=== PATIENT | female | born 1945 | race Caucasian/White ===

== ENCOUNTER 2021-03-13 12:50 | Outpatient (REF) | payer MEDICARE, MEDICAID, SELFPAY ==
--- NOTE | 2021-03-13 12:58 | EEG_ITS ---
The waking background activity consists of a symmetrical posterior alpha frequency of 9 hertz, intermixed with low-voltage fast frequencies seen anteriorly. Drowsiness is characterized by attenuation of the background activity and diffuse theta. During sleep, symmetrical frontal central sleep spindles are seen over both hemispheres. Arousals are frequent. This study is somewhat limited because of an abundance of artifacts and loss of a couple of leads from the left temporal region during half the study on day 2. The patient remains asymptomatic. IMPRESSION: This is a limited 24-hour ambulatory EEG due to abundant to artifact and loss of some left temporal leads, however, the readable part of the 24-hour ambulatory EEG does not reveal any paroxysmal features. MD JULIA Powers/CALLY / [id number]
== END 2021-03-13 12:51 | disposition home or self-care (01) ==
LOC: HO.NEURO 12:50
PROVIDERS: Visit Provider Family Medicine
DX: G45.4 Transient global amnesia (principal)
CPT/HCPCS: 95708

== ENCOUNTER 2024-05-04 13:29 | Outpatient (AMB) | payer MEDICARE, SELFPAY ==
--- NOTE | 2024-05-04 14:07 | A.OFFVIS_ITS ---
Vital Signs 05/04/24 14:09 Height 5 ft 4 in Weight 188 lb BMI 32.3 Intake Visit Reasons: New Pt - Right Knee Pain Intake Note: Sylvia is a 78 year old female who presents today as a new patient with complaints of left knee pain. Patient reports that she has had pain ongoing for about 6-7 months, denies injury. She explains that her pain is tolerable, it is mostly felt with gait initiation and improves with motion. Some occasional pain at night. The joint cracks often. She will take Tylenol for her symptoms. Hx of Right TKA in 2013 [place] Allergies latex Allergy (Verified 05/04/24 14:12) Rash HPI HPI New Pt - Right Knee Pain: Details: Right knee was replaced in 2013 approximately and she is doing well. This does not bother her other than occasionally. Her primary complaint today is medial sided left knee pain. This is not severe and tolerable but does bother her. She is active and she likes to walk. She has had in injections in the right knee in the past prior to previous surgery and would like to consider an injection into her left knee today. [facility] Surgical History (Updated 05/04/24 @ 14:14 by Toya Morel [facility]) History of carpal tunnel release History of elbow replacement History of bunionectomy of right great toe History of total right knee replacement Physical Exam Vital Signs: BMI result Body Mass Index 32.3 Extrem Other: Right knee with excellent motion well-healed incision. Left knee with 5-125 degrees of motion. Tenderness to palpation medial compartment. No effusion. Minimal gait antalgia. Office Procedures Joint Inj/Aspir; Non-Pain Clin Joint Injection/Drain Details: Injected 1 mL of Decadron and 3 mL 1% lidocaine and 3 mL of 0.25% Marcaine. Site was prepped using aseptic technique. Patient tolerated the procedure well. Approach Used: anterolateral Shoulders, Hips, Knees, Knee Large Joint Injection [id number]: Left Knee Coding Procedure code (CPT) selection complete Results Reviewed Results Reviewed: I personally reviewed relevant radiographs. Right total knee arthroplasty in expected post operative position with no hardware complications or evidence of loosening Left knee with loss of medial joint space consistent with moderate to severe osteoarthritis. Assessment & Plan Assessment & Plan (1) Osteoarthritis of left knee: Code(s): M17.12 - Unilateral primary osteoarthritis, left knee Category: Medical Plan: This is a 78-year-old woman with osteoarthritis of the left knee. I injected her left knee today. If this does not help we can consider viscosupplementation. She does not want knee replacement and her symptoms are significant enough to warrant this. She can follow up as needed. Orders: Orders XR knee RT 3V 05/04/24 M25.561 - Pain in right knee XR knee LT 1V 05/04/24 M25.569 - Pain in unspecified knee Coding Level of Care Code New Pt Level 3 (73105) Diagnoses Osteoarthritis of left knee M17.12 CPT Codes Shoulders, Hips, Knees, - Knee Large Joint Injection : Left Knee ([id number])
[2024-05-04 14:09] VITALS: BMI 32.3
== END 2024-05-04 16:00 | disposition home or self-care (01) ==
PROVIDERS: PCP Internal Medicine; Visit Provider Orthopaedic Surgery
DX: M17.12 Unilateral primary osteoarthritis, left knee (principal)
CPT/HCPCS: 20610; 99203

== ENCOUNTER 2024-05-04 13:29 | Outpatient (REF) | payer MEDICARE, SELFPAY | END 2024-05-04 13:30 | disposition home or self-care (01) | LOC: HO.HOSX 13:29 | PROVIDERS: PCP Internal Medicine; Visit Provider Orthopaedic Surgery | DX: M25.561 Pain in right knee (principal); M25.562 Pain in left knee; M17.12 Unilateral primary osteoarthritis, left knee | CPT/HCPCS: 20610; 73560; 73562; 99202; J0665; J1100; J2003 ==

== ENCOUNTER 2024-09-11 14:59 | Outpatient (AMB) | payer MEDICARE, SELFPAY ==
[2024-09-11 15:13] VITALS: BMI 32.3
--- NOTE | 2024-09-11 15:13 | A.OFFVIS_ITS ---
Vital Signs 09/11/24 15:13 Height 5 ft 4 in Weight 188 lb BMI 32.3 Intake Visit Reasons: OV- Left Knee OA - last injection 05/04/24 Intake Note: Sylvia is a 79 year old female who presents today for a follow up of her left knee OA. Last injection administered to the left knee 05/04/2024. She reports that the injection was not particularly helpful, but she also admits to doing too much activity after the injection. She would like to repeat injection today with hopes that this one will help more than the last Hx of Right TKA in 2012 [place] Allergies latex Allergy (Verified 09/11/24 15:13) Rash HPI HPI OV- Left Knee OA - last injection 05/04/24: Details: Four months status post left knee injection. She continues to have pain with daily activity. Injection was only briefly helpful. [facility] Surgical History History of carpal tunnel release History of elbow replacement History of bunionectomy of right great toe History of total right knee replacement Physical Exam Vital Signs: BMI result Body Mass Index 32.3 Extrem Other: Right knee with excellent motion well-healed incision. Left knee with 5-125 degrees of motion. Tenderness to palpation medial compartment. No effusion. Minimal gait antalgia. Office Procedures Joint Inj/Aspir; Non-Pain Clin Joint Injection/Drain Details: Injected 1 mL of Decadron and 3 mL 1% lidocaine and 3 mL of 0.25% Marcaine. Site was prepped using aseptic technique. Patient tolerated the procedure well. Shoulders, Hips, Knees, Knee Large Joint Injection : Left Knee Coding Procedure code (CPT) selection complete Assessment & Plan Assessment & Plan (1) Osteoarthritis of left knee: Code(s): M17.12 - Unilateral primary osteoarthritis, left knee Category: Medical Plan: I injected her left knee. If this is not sufficiently helpful we will consider viscosupplementation. Telehealth follow up 6 weeks. Coding Level of Care Code Est Pt Level 3 (75302) Diagnoses Osteoarthritis of left knee M17.12 CPT Codes Shoulders, Hips, Knees, - Knee Large Joint Injection : Left Knee ([id number])
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
--- OUTSIDE RECORDS SUMMARY | 2024-09-11 17:48 | XMS_ITS | Patient Health Record ---
Author Organization [facility] Address [address] [facility] [address] [place] [address] Care Team Providers Care Internet Systems Administrator Name Role Phone TIFFANY PIERCE Primary Care Provider [phone] Allergies Allergen (clinical drug ingredient) Drug/Non Drug Allergy documented on EMR Reaction Allergy Type Onset Date Status Ascorbic Acid Unknown Drug Allergy Act khushboo Magnesium Unknown Drug Allergy Active Adhesive Unknown Allergy Active Latex Latex rash Allergy Active mercaptopurine Mercaptopurine Unknown Drug Allergy Active Results Component Value Reference Range Notes LIPID PANEL WITH REFLEX TO D IRECT LDL Reviewed date:08/23/2024 01:01:22 PM Interpretation: Performing Lab: Notes/Report: Cholesterol 205 0-200 mg/dL Triglycerides 92 0-150 mg/dL HDL 76 >=40 mg/dL LDL Calculated 111 0-100 mg/dL VLDL Cholesterol Byron 18.4 Non HDL Chol. (LDL+VLDL) 129 <145 mg/dL Chol/HDL Ratio 2.7 0.0-4.4 COMPREHENSIVE METABOLIC PANE L Reviewed date:08/23/2024 01:01:27 PM Interpretation: Performing Lab: Notes/Report: Sodium 138 133-145 mmol/L Potassium 3.7 3.5-5.5 mmol/L Chloride 104 96-110 mmol/L CO2 29 21-32 mmol/L Anion Gap 5 3-11 Glucose 93 70-100 mg/dL BUN 18 5-25 mg/dL Creatinine 0.82 0.50-1.10 mg/dL eGFR 74 >=60 mL/min/1.73m2 Calculati on based on the Chronic Kidney Disease Epidemiology Collaboration (CKD-EPI) equation refit without adjustment for race. BUN/Creatinine Ratio 22.0 Calcium 9.8 8.5-10.5 mg/dL AST (SGOT) 22 10-42 unit/L ALT (SGPT) 47 10-60 unit/L Alkaline Phosphatase 103 42-121 unit/L Total Protein 7.6 6.0-8.0 g/dL Albumin 4.1 3.2-5.0 g/dL Total Bilirubin 1.2 0.0-1.4 mg/dL MICROALBUMIN CREATININE URIN E RATIO Reviewed date:08/23/2024 01:01:13 PM Interpretation: Performing Lab: Notes/Report: Creatinine, Urine 72.0 Microalb, Ur 5.2 0.0-29.0 mg/L Microalb/Creat Ratio 7 <30 mg/g creat Reason For Referral No Information Medications Medication SIG (Take, Route, Frequency, Duration) [...] Problem Status W/U Status Risk Notes Problem Obesity due to excess calories (808767409) Other obesity due to excess calories (E66.09) Active confirmed Problem Essential hypertension (87782604) Essential (primary) hypertension (I10) Active confirmed Problem Atrial fibrillation (12757509) Unspecified atrial fibrillation (I48.91) Active confirmed Vital Signs Heart Rate 74 /min 06/01/2024 Temperature 96.1 degrees Fahrenheit 06/01/2024 Blood pressure diastolic 68 mm Hg 06/01/2024 Oximetry 98 % 06/01/2024 Height 5'5'' in 06/01/2024 Blood pressure systolic 110 mm Hg 06/01/2024 Weight 194.1 lbs 06/01/2024 BMI 32.3 kg/m2 06/01/2024 Encounters Encounter Location Date Provider Diagnosis [facility] [address] [facility] [address] [place] [address] 06/01/2024 TIFFANY PIERCE Essential (primary) hypertension I10 ; Unspecified atrial fibrillation I48.91 ; Other obesity due to excess calories E66.09 and Dietary counseling and surveillance Z71.3 Assessments Encounter Date Diagnosis (ICD Code) Assessment Notes Treatment Notes Treatment Clinical Notes Section Notes 06/01/2024 Essential (primary) hypertension (ICD-10 - I10) 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 Cullen. She takes amoxicillin prophylactically before dental work She is up-to-date on age-specific screening. Her sister Jessica Wallis is her healthcare proxy and her phone number is [phone] Screening blood work before next appointment. 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 Cullen. She takes amoxicillin prophylactically before dental work She is up-to-date on age-specific screening. Her sister Jessica Wallis is her healthcare proxy and her phone number is [phone] Screening blood work before next appointment. 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 Cullen. She takes amoxicillin prophylactically before dental work She is up-to-date on age-specific screening. Her sister Jessica Wallis is her healthcare proxy and her phone number is [phone] Screening blood work before next appointment. 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 Cullen. She takes amoxicillin prophylactically before dental work She is up-to-date on age-specific screening. Her sister Jessica Wallis is her healthcare proxy and her phone number is [phone] Screening blood work before next appointment. Plan Of Treatment Future Test Test Name Order Date Albumin/Creatinine Ratio,Urine-[id number] Lipid Panel-[id number] 06/01/2024 Comp. Metabolic Panel [id number] 2024 Next Appt Details Provider Name:TIFFANY PIERCE , 11/14/2024 08:00:00 AM, [address] [facility] [address], [place], [address], Insurance Providers Payer Name Payer Address Payer Phone Subscriber Number Group Number Insured Name Patient Relationship to Insured Coverage Start Date Coverage End Date Medicare [address] [place] [phone] [id number] Syliva Wallis Self - patient is the insured Medical (General) History Medical History History ICD Code hypertension atrial fibrillation and she sees [facility] and status post ablation time 2 Melanoma right leg and statu s post Mohs procedure and she goes to [facility] Remote injury to the jaw and takes Flexe ril as needed Surgical History Surgery Date(Month/Year) right total knee replacement at [facility] Wrist surgery Dr Laughlin after fall hit by a dog appendectomy
--- OUTSIDE RECORDS SUMMARY | 2024-09-11 17:48 | XMS_ITS | Clinical Summary ---
Author Organization [address] Address [address] [place] [address] Phone Care Team Providers Care Hedis Registered Nurse Rn Name Role Phone Mick Flores MD Primary Care Provider [phone] Allergies Active Allergy Reactions Criticality Noted Date Comments Latex 12/22/2021 Medications apixaban (Eliquis) 5 mg tablet Take 1 tablet (5 mg total) by mouth 2 (two) times a day. 180 tablet 2 05/25/2024 Active ascorbic acid, vitamin C, 500 mg capsule Take 1 capsule by mouth daily. Active famotidine (PEPCID) 20 mg tablet Take 1 tablet by mouth daily. Active lisinopriL (PRINIVIL,ZESTR IL) 10 mg tablet Take 1 Tablet by mouth daily. Active metoprolol succinate (TOPROL-XL) 25 mg 24 hr tablet Take 1 Tablet by mouth daily. 12/03/2023 Active CHOLECALCIFEROL , VITAMIN D3, ORAL Take by mouth daily. Active multivitamin (MULTIPLE VITAMINS ORAL) Take by mouth daily. Active acetaminophen (TYLENOL) 325 mg capsule Take 1 tablet by mouth daily. Active glucosamine sulfate 2KCl (Glucosamine Relief) 500 mg capsule Take by mouth daily. Active CALCIUM CARBONATE ORAL Take by mouth daily. Active Active Problems Problem Noted Date Diagnosed Date Closed displaced fracture of head of radius with routine healing 02/08/2023 Closed fracture of right distal radius 3 Dislocation of right elbow 02/08/2023 Essential hypertension 12/22/2021 Overview (07/12/2024): Last Assessment & Plan: Well controlled on cmy meds, continue Obstructive sleep apnea 05/27/2021 Overview (07/12/2024): Last Assessment & Plan: -compliant with CPAP Cardiomyopathy ([facility] V24, [facility] V28) 2020 Overview (07/12/2024): - See history under paroxysmal atrial fibrillation section Last Assessment & Plan: Recovery of ejection fraction with rate control. Continue low-dose lisinopril and metoprolol. Euvolemic on exam. Paroxysmal atrial fibrillation ([facility] V24, [facility] V28) 10/10/2020 Overview (07/12/2024): - Started having persistent A-fib sometime in 2016 and was noted to have A. tach cardiomyopathy with a EF of 30 to 35% - Status post PVI ablation in December 2017 for symptomatic persistent A-fib by Dr. Hoang - Post ablation, - Had breakthrough A-fib in 2018 for which she was transiently on Tikosyn and had a repeat PVI ablation by Dr. Hoang in March 2019 - Currently on Eliquis for CVA prophylaxis without clear recurrence since then and metoprolol - Most recent echocardiogram from August 2022 showed normal left ventricular ejection fraction of 55 to 60%, normal diastolic function, and no significant valvular abnormalities - Also has sleep apnea but is adherent with CPAP Last Assessment & Plan: No major recurrence. Excellent functional capacity. Continue current low-dose metoprolol and Eliquis 5 twice daily for CVA prophylaxis. Family History Medical History Relation Name Comments Other: unknown heart condition Brother Ronald Other: afib Sister 1 Jessica Other: pacemaker Sister 1 Jessica Other: pacemaker Sister 2 Ina Relation Name Status Comments Brother Ronald Sister 1 Jessica Sister 2 Ina Alive Social History Tobacco Use Types Packs/Day Years Used Date Smoking Tobacco: Never Smokeless Tobacco: Never Alcohol Use Standard Drinks/Week Comments Yes 2 (1 standard drink = 0.6 oz pur e alcohol) Comments Unknown Sex and Gender Information Value Date Recorded Sex Assigned at Not on file Legal Sex Female 7:40 AM EST Gender Identity Not on file Sexual Orientation Not on file Obstetrics History Last Filed Vital Signs Vital Sign Reading Time Taken Comments Blood Pressure 142/79 11/16/2023 10:37 AM EDT Pulse 72 11/16/2023 10:37 AM EDT Temperature - - Respiratory Rate - - Oxygen Saturation - - Inhaled Oxygen Concentration - - Weight 86.2 kg (190 lb) 02/21/2024 9:49 AM EDT Height 165.1 cm (5' 5 ) 02/21/2024 9:49 AM EDT Body Mass Index 31.62 02/21/2024 9:49 AM EDT Plan of Treatment Upcoming Encounters Date Type Department Care Team (Late st Contact Info) Description 10/18/2024 8:40 AM EDT Office Visit [facility] [address] [facility] [address] [place] [address] Jerald Augustin NP [address] [place] [address] Health Maintenance Due Date Last Done Comments DTaP,Tdap,and Td Vaccines (1 - Tdap) 08/09/1966 Pneumococcal Vaccine: 50+ Years (1 of 1 - PCV) 08/09/1997 Depression Screening 04/26/2022 Falls Risk Assessment 04/26/2022 Hepatitis C Screening 04/26/2022 Medicare Annual Wellness Visit 04/26/2022 Osteoporosis Screening (Bone Density Screening) 04/26/2022 Social Influencers of Health Screening 04/26/2022 COVID-19 Vaccine ( season) 2024 04/17/2024, 03/03/2023, 02/26/2022, Additional history exists Hypertension/CHF/CAD Annual BMP Blood Test 08/22/2025 08/22/2024 Cholesterol Screening (Lipid Panel) 08/22/2029 08/22/2024 Zoster Vaccines Completed 06/07/2018, 03/01/2018 RSV Immunization Adult Patients Completed 05/16/2023 Influenza Vaccine Completed 02/28/2024, , 03/12/2022, Additional history exists HIB Vaccines Aged Out No longer eligi ble based on patient's age to complete this topic HPV Vaccines Aged Out No longer eligi ble based on patient's age to complete this topic Hepatitis A Vaccines Aged Out No long er eligible based on patient's age to complete this topic Hepatitis B Vaccines Aged Out No long er eligible based on patient's age to complete this topic IPV Vaccines Aged Out No longer eligi ble based on patient's age to complete this topic MMR Vaccines Aged Out No longer eligi ble based on patient's age to complete this topic Meningococcal ACWY Vaccine Aged Out N o longer eligible based on patient's age to complete this topic Meningococcal B Vaccine Aged Out No l onger eligible based on patient's age to complete this topic RSV Immunization Patients Under 20 months Aged Out No longer eligible based on patient's age to complete this topic Varicella Vaccines Aged Out No longer eligible based on patient's age to complete this topic Procedures Procedure Name Priority Date/Time Associated Diagnosis Comments MICROALBUMIN CREATININE URINE RATIO Routine 08/22/2024 10:04 AM EDT Essential hypertension, benign LIPID PANEL WITH REFLEX TO DIRECT LDL Routine 08/22/2024 10:04 AM EDT Essential hypertension, benign COMPREHENSIVE METABOLIC PANEL Routine 08/22/2024 10:04 AM EDT Essential hypertension, benign from Last 3 Months Results * (ABNORMAL) Lipid panel with reflex to direct LDL (08/22/2024 10:04 AM EDT) Cholesterol 205(H) 0 - 200 mg/dL LAB CHEMISTRY METHOD 08/22/2024 12:11 PM [facility] Triglycerides 92 0 - 150 mg/dL LAB CHEMISTRY METHOD 08/22/2024 12:11 PM [facility] HDL 76 >=40 mg/dL LAB CHEMISTRY METHOD 08/22/2024 12:11 PM [facility] LDL Calculated 111(H) 0 - 100 mg/dL LAB CHEMISTRY METHOD 08/22/2024 12:11 PM [facility] VLDL Cholesterol Byron 18.4 mg/dL LAB CHEMISTRY METHOD 08/22/2024 12:11 PM [facility] Non HDL Chol. (LDL+VLDL) 129 <145 mg/dL LAB CHEMISTRY METHOD 08/22/2024 12:11 PM EDT [facility] Chol/HDL Ratio 2.7 0.0 - 4.4 LAB CHEMISTRY METHOD 08/22/2024 12:11 PM EDT [facility] Blood Venous blood specimen / Unknown Venipuncture / Unknown 08/22/2024 10:04 AM EDT 08/22/2024 11:07 AM EDT Mick Flores MD LAB BLOOD ORDERABLES Final Res ult Performing Organization Address City/[facility]/ZIP Co de Phone Number [facility] [address] [place] [address], [place] [phone] * Microalbumin creatinine urine ratio (08/22/2024 10:04 AM EDT) Creatinine, Urine 72.0 mg/dL LAB CHEMISTRY METHOD 08/22/2024 12:23 PM T [facility] Microalb, Ur 5.2 0.0 - 29.0 mg/L LAB CHEMISTRY METHOD 08/22/2024 12:23 PM T [facility] Microalb/Creat Ratio 7 <30 mg/g creat LAB CHEMISTRY METHOD 08/22/2024 12:23 PM T [facility] Urine Urine specimen obtained by clean catch procedure / Unknown Non-blood Collection / Unknown 08/22/2024 10:04 AM EDT 08/22/2024 11:08 AM EDT Mick Flores MD LAB URINE ORDERABLES Final Res ult [facility] [address] [place] [address], [place] [phone] * Comprehensive metabolic panel (08/22/2024 10:04 AM EDT) Sodium 138 133 - 145 mmol/L LAB CHEMISTRY METHOD [facility]24 [facility] Potassium 3.7 3.5 - 5.5 mmol/L LAB CHEMISTRY METHOD 08/22/2024 12:11 PM [facility] Chloride 104 96 - 110 mmol/L LAB CHEMISTRY METHOD 08/22/2024 12:11 PM [facility] CO2 29 21 - 32 mmol/L LAB CHEMISTRY METHOD 08/22/2024 12:11 PM [facility] Anion Gap 5 3 - 11 LAB CHEMISTRY METHOD 08/22/2024 12:11 PM [facility] Glucose 93 70 - 100 mg/dL LAB CHEMISTRY METHOD 08/22/2024 12:11 PM [facility] BUN 18 5 - 25 mg/dL LAB CHEMISTRY METHOD 08/22/2024 12:11 PM [facility] Creatinine 0.82 0.50 - 1.10 mg/dL LAB CHEMISTRY METHOD 08/22/2024 12:11 PM [facility] eGFR 74 >=60 mL/min/1. 73m2 LAB CHEMISTRY METHOD 08/22/2024 12:11 PM [facility] Comment:Calculation based on the??Chronic Kidney Disease Epidemiology Collaboration (CKD-EPI) equation refit??without adjustment for race. BUN/Creatinine Ratio 22.0 LAB CHEMISTRY METHOD 08/22/2024 12:11 PM [facility] Calcium 9.8 8.5 - 10.5 mg/dL LAB CHEMISTRY METHOD 08/22/2024 12:11 PM [facility] AST (SGOT) 22 10 - 42 unit/L LAB CHEMISTRY METHOD 08/22/2024 12:11 PM [facility] ALT (SGPT) 47 10 - 60 unit/L LAB CHEMISTRY METHOD 08/22/2024 12:11 PM [facility] Alkaline Phosphatase 103 42 - 121 unit/L LAB CHEMISTRY METHOD 08/22/2024 12:11 PM [facility] Total Protein 7.6 6.0 - 8.0 g/dL LAB CHEMISTRY METHOD 08/22/2024 12:11 PM EDT [facility] Albumin 4.1 3.2 - 5.0 g/dL LAB CHEMISTRY METHOD 08/22/2024 12:11 PM EDT [facility] Total Bilirubin 1.2 0.0 - 1.4 mg/dL LAB CHEMISTRY METHOD 08/22/2024 12:11 PM EDT [facility] Blood Venous blood specimen / Unknown Venipuncture / Unknown 08/22/2024 10:04 AM EDT 08/22/2024 11:07 AM EDT Mick Flores MD LAB BLOOD ORDERABLES Final Res ult [facility] [address] [place] [address], from Last 3 Months Insurance MEDICARE Care Teams Hedis Registered Nurse Rn Relationship Specialty Start Date End Date Mick Flores MD [address] [place] [address] PCP - General Internal Medicine 07/11/24
== END 2024-09-11 15:28 | disposition home or self-care (01) ==
LOC: HO.HOS 15:00
PROVIDERS: PCP Internal Medicine; Visit Provider Orthopaedic Surgery
DX: M17.12 Unilateral primary osteoarthritis, left knee (principal)
CPT/HCPCS: 20610; 99213

== ENCOUNTER → 2024-09-11 14:59 | Outpatient (BNVA) | payer MEDICARE, SELFPAY | PROVIDERS: PCP Internal Medicine; Visit Provider Orthopaedic Surgery | DX: M17.12 Unilateral primary osteoarthritis, left knee (principal) | CPT/HCPCS: 20610; 99212; J0665; J1100; J2003 ==

== ENCOUNTER 2024-10-23 14:55 | Outpatient (AMB) | payer MEDICARE, SELFPAY ==
--- NOTE | 2024-10-23 14:58 | A.OFFVIS_ITS ---
Intake Visit Reasons: TEL- Left Knee OA-Video call Intake Note: Sylvia is a 79 year old female who presents today VIA Video Call for a follow up of her Left Knee OA. Hx of right TKA. She was last seen on 09/11/24 where the left knee was injected. If not helpful we would discuss Gel. Patient has tried and failed ~30 days of Tylenol 600mg and Ibuprofen 600mg with no relief. Tried and failed home exercise program XR confirmed OA Allergies latex Allergy (Verified 09/11/24 15:13) Rash HPI HPI TEL- Left Knee OA-Video call: Details: Sylvia is a 79 year old female who presents today VIA Video Call for a follow up of her Left Knee OA. Hx of right TKA. She was last seen on 09/11/24 where the left knee was injected. If not helpful we would discuss Gel. Patient has tried and failed ~30 days of Tylenol 600mg and Ibuprofen 600mg with no relief. Tried and failed home exercise program XR confirmed OA She states she is doing well and the injection was helpful. It bothers her after a long rest but otherwise she feels that she is doing better. [facility] Surgical History History of carpal tunnel release History of elbow replacement History of bunionectomy of right great toe History of total right knee replacement Telehealth Telehealth Telehealth Platform: Telephone Location of provider rendering services: practice address Location of patient: other Patient Identification confirmed using: Name, : Yes Telehealth method: voice only Patient verbally consented to treatment: Yes Patient verbally consented to billing insurance company: Yes Assessment & Plan Assessment & Plan (1) Osteoarthritis of left knee: Code(s): M17.12 - Unilateral primary osteoarthritis, left knee Category: Medical Plan: Doing well considering. At this point in time I would recommend that we continue with corticosteroid injections as tolerated. She does not want s urgery. If the steroid injections stopping helpful we can consider viscosupplementation. We will schedule an appointment for approximately 6 weeks. Coding Level of Care Code Tele Est Pt Level 2 (31231) Diagnoses Osteoarthritis of left knee M17.12
--- OUTSIDE RECORDS SUMMARY | 2024-10-23 16:42 | XMS_ITS | Encounter Summary ---
Author Organization [facility] Address [address] [place] [address] Care Team Providers Care Hairpiece Stylist Name Role Phone Mick Flores MD Primary Care Provider [phone] Reason for Visit * Reason Onset Date Comments called pt to r/s 10/18/24 appt with Jerald Augustin 10/18/2024 Encounter Details Date Type Department Care Team ([facility] st Contact Info) Description 10/18/2024 Telephone [facility] - [facility] [address] [facility] [address] [place] [phone] Yamilet Hill MD [address] [place] [address] called pt to r/s 10/18/24 appt with Jerald Augustin Social History Tobacco Use Types Packs/Day Years Used Date Smoking Tobacco: Never Smokeless Tobacco: Never Alcohol Use Standard Drinks/Week Comments Yes 2 (1 standard drink = 0.6 oz pur e alcohol) Comments Unknown Sex and Gender Information Value Date Recorded Sex Assigned at Not on file Legal Sex Female 7:40 AM EST Gender Identity Not on file Sexual Orientation Not on file documented as of this encounter Progress Notes * Cori Mejia - 10/18/2024 7:29 AM EDT I called Sylvia at 7:19 AM and left a voicemail on both number listed in her chart letting her knowwe had to cancel her Wednesday appointment with Jerald Augustin because he is out. I said in my message that I rescheduled her appointment with Jerald to Thursday November 07, 2024 at 8:10 AM. Appointment reminder mailed. documented in this encounter Plan of Treatment Upcoming Encounters Date Type Department Care Team (Late st Contact Info) Description 11/07/2024 8:10 AM EDT Office Visit [facility] - [facility] [address] [facility] [address] [place] [address] Jerald Augustin, MARILEE [address] [place] [address] documented as of this encounter Visit Diagnoses Not on filedocumented in this encounter Care Teams Hairpiece Stylist Relationship Specialty Start Date End Date Mick Flores MD [address] [place] [address] PCP - General Internal Medicine 07/11/24 documented as of this encounter
== END 2024-10-23 15:26 | disposition home or self-care (01) ==
LOC: HO.HOS 14:55
PROVIDERS: PCP Hospitalist; Visit Provider Orthopaedic Surgery
DX: M17.12 Unilateral primary osteoarthritis, left knee (principal)
CPT/HCPCS: 99212

== ENCOUNTER → 2024-10-23 14:55 | Outpatient (BNVA) | payer MEDICARE, SELFPAY | PROVIDERS: PCP Hospitalist; Visit Provider Orthopaedic Surgery ==

== ENCOUNTER 2024-12-07 15:00 | Outpatient (AMB) | payer MEDICARE, SELFPAY ==
[2024-12-07 15:05] VITALS: BMI 32.3
--- NOTE | 2024-12-07 15:05 | A.OFFVIS_ITS ---
Vital Signs 12/07/24 15:05 Height 5 ft 4 in Weight 188 lb BMI 32.3 Intake Visit Reasons: Left Knee Injection 09/11/24 Intake Note: Syvlia is a 79 year old female who presents today for a repeat Left Knee Injection. Last injection was administered on 09/11/24. Patient reports she is doing well, would like to discuss surgery. Hx of Right TKA in 2013 [place] Allergies latex Allergy (Verified 09/11/24 15:13) Rash HPI HPI Left Knee Injection 09/11/24: Details: Sylvia returns today with left knee osteoarthritis. She has been in pain for years and been managing with injections is coming to the realization that she would like to be to walk without having to stop because pain. She would like to be able to sleep without pain and get through day without thinking about her knee pain. She does have a history atrial fibrillation had 2 ablations in his on Eliquis. She had a right knee replacement done by me 12 years ago. This has been doing well. She has no complaints. [facility] Surgical History History of carpal tunnel release History of elbow replacement History of bunionectomy of right great toe History of total right knee replacement Physical Exam Vital Signs: BMI result Body Mass Index 32.3 Const General: cooperative, healthy appearing, no acute distress, well developed and alert HEENT Head: Yes normal to inspection, Yes normocephalic and Yes atraumatic Mouth: moist mucous membranes Eyes General: appearance normal, both eyes and all related structures EOM: EOMs intact bilaterally Chest Other: no audible wheezing. Resp Other: No audible wheezing Effort & Inspection: normal respiratory effort Cardio Other: Radial pulse palpable with no rythmic abnormalities Back/Spine/Pelvis Cervical Spine: normal cervical lordosis Skin General skin exam: no rashes or lesions noted Neuro General: no focal motor deficits Extrem Other: Left knee with 5-120 degrees of motion. Tenderness to palpation mostly over the medial compartment. Positive gait antalgia. 2+ dorsalis pedis pulse. Intact EHL/tib ant. gastroc/Skin intact to light touch Psych Appearance: grossly normal and well kempt Mental Status: mental status grossly normal Speech and movement: Normal speech and movement present Affect: normal affect Attitude: cooperative Results Reviewed Results Reviewed: I personally reviewed relevant radiographs. Right total knee arthroplasty in expected post operative position with no hardware complications or evidence of loosening Left knee with severe but stable varus pattern osteoarthritis. Assessment & Plan Assessment & Plan (1) Osteoarthritis of left knee: Code(s): M17.12 - Unilateral primary osteoarthritis, left knee Category: Medical Plan: This is a 79-year-old woman with hypertension and a history of atrial fibrillation on Eliquis who has longstanding left knee osteoarthritis. We have injected her knee many times and it is mildly helpful but she is becoming increasingly dissatisfied with the duration of symptom relief. She wants to be more active and feels that her knee is still limiting factor. She has a very good patient. She had a very successful right knee outcome. I recommend left knee arthroplasty. I discussed this with her and she is in agreement. I discussed the risks, benefits and alternatives including , but not limited to, the risk of infection persistent pain damage to arteries, nerves, surrounding soft tissues, the need for further surgery as well as stiffness and aseptic loosening. I discussed the risk of fracture postoperatively. I also explained the there are medical complications associated with surgery. She is on Eliquis slightly increased risk of bleeding as well as pneumonia complications regarding her heart and lungs as well as of rare complications that are impossible to enumerate but can possibly occur in the setting of joint replacement. She expressed understanding. I answered all of her questions the best of my abilities. We will proceed forward with scheduling and preoperative clearance. Coding Level of Care Code Est Pt Level 4 (55001) Diagnoses Osteoarthritis of left knee M17.12
--- OUTSIDE RECORDS SUMMARY | 2024-12-07 15:06 | XMS_ITS | Clinical Summary ---
Author Organization [address] [place] [address] [place] [phone] Phone Care Team Providers Care Java Sdet Name Role Phone Mick Flores MD Primary Care Provider [phone] Allergies Active Allergy Reactions Criticality Noted Date Comments Adhesive Unknown 11/07/2024 Ascorbic Acid Unknown 11/07/2024 Latex Rash 12/22/2021 Magnesium Unknown 11/07/2024 Mercaptopurine Unknown 11/07/2024 Medications apixaban (Eliquis) 5 mg tablet Take 1 tablet (5 mg total) by mouth 2 (two) times a day. 180 tablet 2 Active ascorbic acid, vitamin C, 500 mg capsule Take 1 capsule by mouth daily. Active famotidine (PEPCID) 20 mg tablet Take 1 tablet by mouth daily. Active lisinopriL (PRINIVIL,ZESTR IL) 10 mg tablet Take 1 Tablet by mouth daily. Active CHOLECALCIFEROL , VITAMIN D3, ORAL Take by mouth daily. Active multivitamin (MULTIPLE VITAMINS ORAL) Take by mouth daily. Active acetaminophen (TYLENOL) 325 mg capsule Take 1 tablet by mouth daily. Active glucosamine sulfate 2KCl (Glucosamine Relief) 500 mg capsule Take by mouth daily. Active CALCIUM CARBONATE ORAL Take by mouth daily. Active lisinopriL (PRINIVIL,ZESTR IL) 5 mg tablet Take 1 tablet (5 mg total) by mouth 1 (one) time each day. Active acetaminophen (TYLENOL 8 HOUR) 650 mg 8 hr tablet Take 1 tablet (650 mg total) by mouth every 8 (eight) hours if needed for mild pain. Do not crush, chew, or split. Active metoprolol succinate (TOPROL-XL) 25 mg 24 hr tablet Take 1 tablet (25 mg total) by mouth 1 (one) time each day. Do not crush or chew. 90 tablet 3 5 Active metoprolol succinate (TOPROL-XL) 25 mg 24 hr tablet Take 1 Tablet by mouth daily. 4 11/24/19 25 Discontinu ed(Reorder ) Active Problems Problem Noted Date Diagnosed Date Hyperlipidemia 11/07/2024 Assessment & Plan (11/07/2024 8:50 AM EDT): Most recent lipid panel from 2 months prior revealed an LDL of 111. Would like this to be at 100 or below to reduce risk factors. Patient would like to try to improve diet will redraw a lipid panel in 3 to 4 months Closed displaced fracture of head of radius with routine healing 02/08/2023 Closed fracture of right distal radius 3 Dislocation of right elbow 02/08/2023 Essential hypertension 12/22/2021 Overview (07/12/2024): Last Assessment & Plan: Well controlled on cmy meds, continue Assessment & Plan (11/07/2024 8:46 AM EDT): Well-controlled on current medications. Please continue the metoprolol and lisinopril. Obstructive sleep apnea 05/27/2021 Overview (07/12/2024): Last Assessment & Plan: -compliant with CPAP Cardiomyopathy (CMS/HCC V24, CMS/HCC V28) 2020 Overview (11/07/2024): - See history under paroxysmal atrial fibrillation section Assessment & Plan (11/07/2024 8:45 AM EDT): Recovery of ejection fraction with rate control. Continue low-dose lisinopril metoprolol. Patient is euvolemic on exam. Paroxysmal atrial fibrillation (CMS/HCC V24, CMS /HCC V28) 10/10/2020 Overview (11/07/2024): - Started having persistent A-fib sometime in [...] sleep apnea but is adherent with CPAP Assessment & Plan (11/07/2024 8:46 AM EDT): No major reoccurrence. Excellent functional capacity. Continue low-dose metoprolol and Eliquis 5 mg p.o. twice daily for CVA prophylaxis. Encounters Date Type Department Care Team Description 11/07/2024 8:10 AM EDT Office Visit [facility] [address] [facility] [address] [place] [phone] Jerald Augustin NP Cardiomyopathy, unspecified type (CMS/HCC V24, CMS/HCC V28) (Primary Dx); Essential hypertension; Paroxysmal atrial fibrillation (CMS/HCC V24, CMS/HCC V28); Hyperlipidemia, unspecified hyperlipidemia type 10/18/2024 Telephone [facility] [address] [facility] [address] [place] [phone] Yamilet Núñez MD called pt to r/s 10/18/24 appt with Jerald Augustin from Last 3 Months Family History Medical History Relation Name Comments [...] drink = 0.6 oz pur e alcohol) occ Comments Unknown Sex and Gender Information Value Date Recorded Sex Assigned at Not on file Legal Sex Female 7:40 AM EST Gender Identity Not on file Sexual Orientation Not on file Obstetrics History Last Filed Vital Signs Vital Sign Reading Time Taken Comments Blood Pressure 118/70 11/07/2024 8:06 AM EDT Pulse 78 11/07/2024 8:06 AM EDT Temperature - - Respiratory Rate - - Oxygen Saturation 97% 11/07/2024 8:06 AM EDT Inhaled Oxygen Concentration - - Weight 88.7 kg (195 lb 9.6 oz) 11/07/2024 8:06 A M EDT Height 165.1 cm (5' 5 ) 11/07/2024 8:06 AM EDT Body Mass Index 32.55 11/07/2024 8:06 AM EDT Plan of Treatment Health Maintenance Due Date Last Done Comments DTaP,Tdap,and Td Vaccines (1 - Tdap) 08/09/1966 Pneumococcal Vaccine: 50+ Years (1 of 1 - PCV) 08/09/1997 Falls Risk Assessment 04/26/2022 Hepatitis C Screening 04/26/2022 Medicare Annual Wellness Visit 04/26/2022 Osteoporosis Screening (Bone Density Screening) 04/26/2022 Social Influencers of Health Screening 04/26/2022 Depression Screening 05/17/2024 COVID-19 Vaccine ( season) 2024 04/17/2024, 03/03/2023, 02/26/2022, Additional history exists Influenza Vaccine (#1) 2025 , 03/16/2023, 03/12/2022, Additional history exists Hypertension/CHF/CAD Annual BMP Blood Test 08/22/2025 08/22/2024 Cholesterol Screening (Lipid Panel) 08/22/2029 08/22/2024 Zoster Vaccines Completed 06/07/2018, 03/01/2018 RSV Immunization Adult Patients Completed 05/16/2023 HIB Vaccines Aged Out No longer eligi [...] Procedure Name Priority Date/Time Associated Diagnosis Comments ECG 12-LEAD Routine 11/07/2024 8:40 AM EDT Cardiomyopathy, unspecified type (CMS/HCC V24, CMS/HCC V28) COMPREHENSIVE METABOLIC PANEL Routine 08/22/2024 10:04 AM EDT Essential hypertension, benign LIPID PANEL WITH REFLEX TO DIRECT LDL Routine 08/22/2024 10:04 AM EDT Essential hypertension, benign from Last 3 Months or Most Recently Relevant to Health Maintenance Results * ECG 12 lead (11/07/2024 8:40 AM EDT) Ventricular Rate ECG 71 BPM GEMUSE Atrial Rate 71 BPM GEMUSE P-R Interval 140 ms GEMUSE QRS Duration 88 ms GEMUSE Q-T Interval 390 ms GEMUSE QTc 423 ms GEMUSE P Wave [place] -7 degrees GEMUSE R [place] -53 degrees GEMUSE T [place] 54 degrees GEMUSE ECG Interpretation Normal sinus rhythm Left anterior fascicular block Abnormal ECG When compared with ECG of 15-FEB-2023 11:02, No significant change was found Confirmed by YAMILET NÚÑEZ ([id number]) on 12/04/2024 4:04:11 PM GEMUSE 11/07/2024 8:18 AM EDT 12/04/2024 4:04 PM EDT us Jerald Augustin NP ECG ORDERABLES Edited Result - Final GEMUSE * (ABNORMAL) Lipid panel with reflex to direct LDL (08/22/2024 10:04 AM EDT) Cholesterol 205(H) 0 - 200 mg/dL LAB CHEMISTRY METHOD 08/22/2024 12:[address] [facility] Triglycerides 92 0 - 150 mg/dL LAB CHEMISTRY METHOD 08/22/2024 12:[address] [facility] HDL 76 >=40 mg/dL LAB CHEMISTRY METHOD 08/22/2024 12:[address] [facility] LDL Calculated 111(H) 0 - 100 mg/dL LAB CHEMISTRY METHOD 08/22/2024 12:[address] [facility] VLDL Cholesterol [place] 18.4 mg/dL LAB CHEMISTRY METHOD 08/22/2024 12:11 PM [facility] Non HDL Chol. (LDL+VLDL) 129 <145 mg/dL LAB CHEMISTRY METHOD 08/22/2024 12:[address] [facility] Chol/HDL Ratio 2.7 0.0 - 4.4 LAB CHEMISTRY METHOD 08/22/2024 12:11 PM [facility] Blood Venous blood specimen / Unknown Venipuncture / Unknown 08/22/2024 10:04 AM EDT 08/22/2024 11:07 AM EDT us Mick Flores MD LAB BLOOD ORDERABLES Final Res ult [facility] [address] [place] [address], [place] [phone] * Comprehensive metabolic panel (08/22/2024 10:04 AM EDT) Sodium 138 133 - 145 mmol/L LAB CHEMISTRY METHOD 08/22/2024 12:[address] [facility] Potassium 3.7 3.5 - 5.5 mmol/L LAB CHEMISTRY METHOD 08/22/2024 12:11 PM [facility] Chloride 104 96 - 110 mmol/L LAB CHEMISTRY METHOD 08/22/2024 12:11 PM [facility] CO2 29 21 - 32 mmol/L LAB CHEMISTRY METHOD 08/22/2024 12:11 PM [facility] Anion Gap 5 3 - 11 LAB CHEMISTRY METHOD 08/22/2024 12:11 PM [facility] Glucose 93 70 - 100 mg/dL LAB CHEMISTRY METHOD 08/22/2024 12:11 PM [facility] BUN 18 5 - 25 mg/dL LAB CHEMISTRY METHOD 08/22/2024 12:11 PM [facility] Creatinine 0.82 0.50 - 1.10 mg/dL LAB CHEMISTRY METHOD 08/22/2024 12:11 PM [facility] eGFR 74 >=60 mL/min/1. 73m2 LAB CHEMISTRY METHOD 08/22/2024 12:11 PM [facility] Comment:Calculation based on the Chronic Kidney Disease Epidemiology Collaboration (CKD-EPI) equation refit without adjustment for race. BUN/Creatinine Ratio 22.0 LAB CHEMISTRY METHOD 08/22/2024 12:11 PM [facility] Calcium 9.8 8.5 - 10.5 mg/dL LAB CHEMISTRY METHOD 08/22/2024 12:11 PM [facility] AST (SGOT) 22 10 - 42 unit/L LAB CHEMISTRY METHOD 08/22/2024 12:11 PM [facility] ALT (SGPT) 47 10 - 60 unit/L LAB CHEMISTRY METHOD 08/22/2024 12:11 PM [facility] Alkaline Phosphatase 103 42 - 121 unit/L LAB CHEMISTRY METHOD 08/22/2024 12:11 PM [facility] Total Protein 7.6 6.0 - 8.0 g/dL LAB CHEMISTRY METHOD 08/22/2024 12:[address] [facility] Albumin 4.1 3.2 - 5.0 g/dL LAB CHEMISTRY METHOD 08/22/2024 12:[address] [facility] Total Bilirubin 1.2 0.0 - 1.4 mg/dL LAB CHEMISTRY METHOD 08/22/2024 12:[address] [facility] Blood Venous blood specimen / Unknown Venipuncture / Unknown 08/22/2024 10:04 AM EDT 08/22/2024 11:07 AM EDT Mick Flores MD LAB BLOOD ORDERABLES Final Res ult [facility] [address] [place] [address], from Last 3 Months or Most Recently Relevant to [place] [id number] MEDICARE Care Teams Java Sdet Relationship Specialty Start Date End Date Mick Flores MD [address] [place] [phone] PCP - General Internal Medicine 07/11/24
--- OUTSIDE RECORDS SUMMARY | 2024-12-07 15:06 | XMS_ITS | Patient Health Record ---
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 Name Role Phone TIFFANY PIERCE Primary Care Provider Allergies Allergen (clinical drug ingredient) Drug/Non Drug Allergy documented on EMR Reaction Allergy Type Onset Date Status Ascorbic Acid Unknown Drug Allergy Act khushboo Magnesium Unknown Drug Allergy Active Adhesive Unknown Allergy Active Latex Latex rash Allergy Active mercaptopurine Mercaptopurine Unknown Drug Allergy Active Results Component Value Reference Range Notes COMPREHENSIVE METABOLIC PANE L Reviewed date:08/23/2024 01:01:27 [...] mg/L Microalb/Creat Ratio 7 <30 mg/g creat LIPID PANEL WITH REFLEX TO D IRECT LDL Reviewed date:08/23/2024 01:01:22 PM Interpretation: Performing Lab: Notes/Report: Cholesterol 205 0-200 mg/dL Triglycerides 92 0-150 mg/dL HDL 76 >=40 mg/dL LDL Calculated 111 0-100 mg/dL VLDL Cholesterol Byron 18.4 Non HDL Chol. (LDL+VLDL) 129 <145 mg/dL Chol/HDL Ratio 2.7 0.0-4.4 Reason For Referral No Information Medications Medication SIG (Take, Route, Frequency, Duration) Notes Start Date End Date Status Lisinopril 10 MG 1 tablet Orally Once a day; Duration: 90 days Active Amoxicillin 500 MG 4 capsules prior to dental procedures Orally Once daily Active Eliquis 5 MG as directed Orally Active Metoprolol Succinate ER 25 MG 1 tablet Orally Once a day Active Problems Problem Type SNOMED Code ICD Code Onset Dates Problem Status W/U Status Risk Notes Problem Obesity due to excess calories (544551901) Other obesity due to excess calories (E66.09) Active confirmed Problem Essential hypertension (28024677) Essential (primary) hypertension (I10) Active confirmed Problem Cardiomyopathy (69208650) Cardiomyopathy, unspecified (I42.9) Active confirmed Problem Paroxysmal atrial fibrillation (781097903) Paroxysmal atrial fibrillation (I48.0) Active confirmed Vital Signs Heart Rate 77 /min 11/14/2024 Temperature 95.7 degrees Fahrenheit 11/14/2024 Blood pressure diastolic 70 mm Hg 11/14/2024 Oximetry 98 % 11/14/2024 Height 5'5'' in 11/14/2024 Blood pressure systolic 110 mm Hg 11/14/2024 Weight 194.2 lbs 11/14/2024 BMI 32.31 kg/m2 11/14/2024 Encounters Encounter Location Date Provider Diagnosis [address] [place] [address] 06/01/2024 TIFFANY PIERCE Essential (primary) hypertension I10 ; Unspecified atrial fibrillation I48.91 ; Other obesity due to excess calories E66.09 and Dietary counseling and surveillance Z71.[address] [place] [address] 11/14/2024 ALLEN EDUARD Essential (primary) hypertension I10 ; Encounter for general adult medical examination without abnormal findings Z00.00 ; Unspecified atrial fibrillation I48.91 ; Other obesity due to excess calories E66.09 ; Paroxysmal atrial fibrillation I48.0 and Cardiomyopathy, unspecified I42.9 [facility] [address] [address] 11/27/2024 ALLEN [facility] [address] [phone] 11/30/2024 ALLEN EDUARD Assessments Encounter Date Diagnosis (ICD Code) Assessment Notes Treatment Notes Treatment Clinical Notes Section Notes 06/01/2024 Essential (primary) hypertension (ICD-10 - I10) 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 Cullen. She takes amoxicillin prophylactically before dental work She is up-to-date on age-specific screening. Her sister Jessica Wallis is her healthcare proxy and her phone number is [phone] Screening blood work before next appointment. 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 Cullen. She takes amoxicillin prophylactically before dental work She is up-to-date on age-specific screening. Her sister Jessica Wallis is her healthcare proxy and her phone number is [phone] Screening blood work before next appointment. 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 Paroxysmal atrial fibrillation/hypert ension. She is status post ablation times 2 and she is in sinus rhythm. She is on Eliquis 5 mg twice a day along with metoprolol ER 25 mg 1 tablet daily. She is also on lisinopril 5 mg daily for blood pressure. Renal function and electrolytes are stable. Nonischemic cardiomyopathy. According to cardiology if this could have been secondary to tachycardia. She is rate controlled. EF on last echocardiogram was within normal range. Mixed hyperlipidemia. Borderline high total cholesterol and LDL should be under 100. Dietary changes at this point. Osteoarthritis multiple joints. She follows up with orthopedics for intra-articular injections. Advised weight loss take Tylenol as needed and ice to joints after activity. Does regular stretching exercises. Obesity. Complications of obesity discussed. Different modalities of treatment discussed. Advised low calorie, low carbohydrate diet. Goal is to lose 6 pounds a month. She is up-to-date on age specific screening.MOLST form discussed with the patient. Her sister Jessica is her healthcare proxy. Patient is full code. 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 Paroxysmal atrial fibrillation/hypert ension. She is status post ablation times 2 and she is in sinus rhythm. She is on Eliquis 5 mg twice a day along with metoprolol ER 25 mg 1 tablet daily. She is also on lisinopril 5 mg daily for blood pressure. Renal function and electrolytes are stable. Nonischemic cardiomyopathy. According to cardiology if this could have been secondary to tachycardia. She is rate controlled. EF on last echocardiogram was within normal range. Mixed hyperlipidemia. Borderline high total cholesterol and LDL should be under 100. Dietary changes at this point. Osteoarthritis multiple joints. She follows up with orthopedics for intra-articular injections. Advised weight loss take Tylenol as needed and ice to joints after activity. Does regular stretching exercises. Obesity. Complications of obesity discussed. Different modalities of treatment discussed. Advised low calorie, low carbohydrate diet. Goal is to lose 6 pounds a month. She is up-to-date on age specific screening.MOLST form discussed with the patient. Her sister Jessica is her healthcare proxy. Patient is full code. 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 Paroxysmal atrial fibrillation/hypert ension. She is status post ablation times 2 and she is in sinus rhythm. She is on Eliquis 5 mg twice a day along with metoprolol ER 25 mg 1 tablet daily. She is also on lisinopril 5 mg daily for blood pressure. Renal function and electrolytes are stable. Nonischemic cardiomyopathy. According to cardiology if this could have been secondary to tachycardia. She is rate controlled. EF on last echocardiogram was within normal range. Mixed hyperlipidemia. Borderline high total cholesterol and LDL should be under 100. Dietary changes at this point. Osteoarthritis multiple joints. She follows up with orthopedics for intra-articular injections. Advised weight loss take Tylenol as needed and ice to joints after activity. Does regular stretching exercises. Obesity. Complications of obesity discussed. Different modalities of treatment discussed. Advised low calorie, low carbohydrate diet. Goal is to lose 6 pounds a month. She is up-to-date on age specific screening.MOLST form discussed with the patient. Her sister Jessica is her healthcare proxy. Patient is full code. 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 Cullen. She takes amoxicillin prophylactically before dental work She is up-to-date on age-specific screening. Her sister Jessica Wallis is her healthcare proxy and her phone number is [phone] Screening blood work before next appointment. 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 Cullen. She takes amoxicillin prophylactically before dental work She is up-to-date on age-specific screening. Her sister Jessica Wallis is her healthcare proxy and her phone number is [phone] Screening blood work before next appointment. 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 Paroxysmal atrial fibrillation/hypert ension. She is status post ablation times 2 and she is in sinus rhythm. She is on Eliquis 5 mg twice a day along with metoprolol ER 25 mg 1 tablet daily. She is also on lisinopril 5 mg daily for blood pressure. Renal function and electrolytes are stable. Nonischemic cardiomyopathy. According to cardiology if this could have been secondary to tachycardia. She is rate controlled. EF on last echocardiogram was within normal range. Mixed hyperlipidemia. Borderline high total cholesterol and LDL should be under 100. Dietary changes at this point. Osteoarthritis multiple joints. She follows up with orthopedics for intra-articular injections. Advised weight loss take Tylenol as needed and ice to joints after activity. Does regular stretching exercises. Obesity. Complications of obesity discussed. Different modalities of treatment discussed. Advised low calorie, low carbohydrate diet. Goal is to lose 6 pounds a month. She is up-to-date on age specific screening.MOLST form discussed with the patient. Her sister Jessica is her healthcare proxy. Patient is full code. 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 Paroxysmal atrial fibrillation/hypert ension. She is status post ablation times 2 and she is in sinus rhythm. She is on Eliquis 5 mg twice a day along with metoprolol ER 25 mg 1 tablet daily. She is also on lisinopril 5 mg daily for blood pressure. Renal function and electrolytes are stable. Nonischemic cardiomyopathy. According to cardiology if this could have been secondary to tachycardia. She is rate controlled. EF on last echocardiogram was within normal range. Mixed hyperlipidemia. Borderline high total cholesterol and LDL should be under 100. Dietary changes at this point. Osteoarthritis multiple joints. She follows up with orthopedics for intra-articular injections. Advised weight loss take Tylenol as needed and ice to joints after activity. Does regular stretching exercises. Obesity. Complications of obesity discussed. Different modalities of treatment discussed. Advised low calorie, low carbohydrate diet. Goal is to lose 6 pounds a month. She is up-to-date on age specific screening.MOLST form discussed with the patient. Her sister Jessica is her healthcare proxy. Patient is full code. 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 Paroxysmal atrial fibrillation/hypert ension. She is status post ablation times 2 and she is in sinus rhythm. She is on Eliquis 5 mg twice a day along with metoprolol ER 25 mg 1 tablet daily. She is also on lisinopril 5 mg daily for blood pressure. Renal function and electrolytes are stable. Nonischemic cardiomyopathy. According to cardiology if this could have been secondary to tachycardia. She is rate controlled. EF on last echocardiogram was within normal range. Mixed hyperlipidemia. Borderline high total cholesterol and LDL should be under 100. Dietary changes at this point. Osteoarthritis multiple joints. She follows up with orthopedics for intra-articular injections. Advised weight loss take Tylenol as needed and ice to joints after activity. Does regular stretching exercises. Obesity. Complications of obesity discussed. Different modalities of treatment discussed. Advised low calorie, low carbohydrate diet. Goal is to lose 6 pounds a month. She is up-to-date on age specific screening.MOLST form discussed with the patient. Her sister Jessica is her healthcare proxy. Patient is full code. Screening blood work reviewed and questions answered Plan Of Treatment Future Test Test Name Order Date Albumin/Creatinine Ratio,[id number] Lipid [id number] 06/01/2024 Comp. Metabolic Panel [id number] 2024 Next Appt Details Provider Name:TIFFANY CHAPAReyes , 05/18/2025 08:30:00 AM, [address] [place] [address], [id number], Insurance Providers Payer Name Payer Address Payer Phone Subscriber Number Group Number Insured Name Patient Relationship to Insured Coverage Start Date Coverage End Date Medicare [address] [place] [address] [id number] Sylvia Wallis Self - patient is the insured 3 Medical (General) History Medical History History ICD Code hypertension atrial fibrillation and she sees [facility] cardiology and status post ablation time 2 Melanoma right leg and statu s post Mohs procedure and she goes to [place] dermatology Remote injury to the jaw and takes Flexe ril as needed Surgical History Surgery Date(Month/Year) right total knee replacement at [facility] Wrist surgery Dr Laughlin after fall hit by a dog appendectomy
== END 2024-12-07 15:51 | disposition home or self-care (01) ==
LOC: HO.HOS 15:01
PROVIDERS: PCP Hospitalist; Visit Provider Orthopaedic Surgery
DX: M17.12 Unilateral primary osteoarthritis, left knee (principal)
CPT/HCPCS: 99214

== ENCOUNTER → 2024-12-07 15:00 | Outpatient (BNVA) | payer MEDICARE, SELFPAY | PROVIDERS: PCP Hospitalist; Visit Provider Orthopaedic Surgery | DX: M17.12 Unilateral primary osteoarthritis, left knee (principal); Z96.651 Presence of right artificial knee joint | CPT/HCPCS: 99212 ==

== ENCOUNTER 2024-12-30 13:42 | Outpatient (AMB) | payer MEDICARE, SELFPAY ==
--- OUTSIDE RECORDS SUMMARY | 2024-12-30 13:44 | XMS_ITS | Encounter Summary ---
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 - [facility] [address] [facility] [address] [place] [id number] Yamilet Hill MD [address] [place] [address] Pre-operative Clearance Social History Tobacco Use Types Packs/Day Years [...] as of this encounter Progress Notes * Tami Reynolds - 12/20/2024 11:45 AM EDT Reached out and left a message for Janet with her appointment on 02/12/25 with Jerald Augustin. * Rene Gupta - 12/19/2024 10:38 AM EDT Pre Op Request Type Of Surgery: left total knee arthoproxy EKG Needed: Yes Date Of Surgery: March 13, 2025 Performing Doctor: Dr Don burrell Name of Caller/ Facility:[facility] Phone number:[phone] Can call Janet to schedule and if she does not answer we can schedule the patient and leave a voicemail and she will update Elikulwinder. documented in this encounter Plan of Treatment Upcoming Encounters Date Type Department Care Team (Late st Contact Info) Description 02/12/2025 9:40 AM EDT Consult [facility] - [facility] [address] [facility] [address] [place] [phone] Jerald Augustin NP [address] [place] [address] documented as of this encounter Visit Diagnoses Not on filedocumented in this encounter Care Teams Electrode Cleaning Machine Operator Relationship Specialty Start Date End Date Mick Flores MD [address] [place] [phone] PCP - General Internal Medicine 07/11/24 documented as of this encounter
--- OUTSIDE RECORDS SUMMARY | 2024-12-30 13:44 | XMS_ITS | Patient Health Record ---
Author Organization [facility] Address [address] [place] [address] Care Team Providers Care Drug Department Worker Name Role Phone TIFFANY PIERCE Primary Care Provider [phone] Allergies Allergen (clinical drug ingredient) Drug/Non Drug Allergy documented on EMR Reaction Allergy Type Onset Date Status Ascorbic Acid Unknown Drug Allergy Act khushboo Magnesium Unknown Drug Allergy Active Adhesive Unknown Allergy Active Latex Latex rash Allergy Active mercaptopurine Mercaptopurine Unknown Drug Allergy Active Results Component Value Reference Range Notes MICROALBUMIN CREATININE URIN E RATIO Reviewed date:08/23/2024 01:01:13 PM Interpretation: Performing Lab: Notes/Report: Creatinine, Urine 72.0 Microalb, Ur 5.2 0.0-29.0 mg/L Microalb/Creat Ratio 7 <30 mg/g creat COMPREHENSIVE METABOLIC PANE L Reviewed date:08/23/2024 01:01:27 [...] 3.2-5.0 g/dL Total Bilirubin 1.2 0.0-1.4 mg/dL LIPID PANEL WITH REFLEX TO D IRECT [...] Notes Problem Obesity due to excess calories (176377532) Other obesity due to excess calories (E66.09) Active confirmed Problem Essential hypertension (79272771) Essential (primary) hypertension (I10) Active confirmed Problem Cardiomyopathy, unspecified (I42.9) Active confirmed Problem Paroxysmal atrial fibrillation (837674118) Paroxysmal atrial fibrillation (I48.0) Active confirmed Vital Signs Heart Rate 77 /min 11/14/2024 Temperature 95.7 degrees Fahrenheit 11/14/2024 Oximetry 98 % 11/14/2024 Blood pressure diastolic 70 mm Hg 11/14/2024 Height 5'5'' in 11/14/2024 Blood pressure systolic 110 mm Hg 11/14/2024 Weight 194.2 lbs 11/14/2024 BMI 32.31 kg/m2 11/14/2024 Encounters Encounter Location Date Provider Diagnosis [address] [place] [address] 11/27/2024 [facility] [address] [facility] [address] [place] [address] 11/30/[address] [place] [address] 06/01/2024 [facility] Essential (primary) hypertension I10 ; Unspecified atrial fibrillation I48.91 ; Other obesity due to excess calories E66.09 and Dietary counseling and surveillance Z71.3 [facility] [address] [facility] [address] [place] [address] 11/14/2024 TIFFANY PIERCE Essential (primary) hypertension I10 ; Encounter for general adult medical examination without abnormal findings Z00.00 ; Unspecified atrial fibrillation I48.91 ; Other obesity due to excess calories E66.09 ; Paroxysmal atrial fibrillation I48.0 and Cardiomyopathy, unspecified I42.9 Assessments Encounter Date Diagnosis (ICD Code) Assessment Notes Treatment Notes Treatment Clinical Notes Section Notes 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, paroxysmal atrial fibrillation and status post ablation time 2 and currently on Eliquis, nonischemic cardiomyopathy most likely secondary to tachycardia and EF is within reasonable limits and she goes to and she sees [facility] cardiology, melanoma right lower leg and she [...] and she goes to and she sees [facility] cardiology, melanoma right lower leg and she [...] blood work reviewed and questions answered 06/01/2024 Essential (primary) hypertension (ICD-10 - I10) 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 Cullen. She takes amoxicillin prophylactically before dental work She is up-to-date on age-specific screening. Her sister Jessica Wallis is her healthcare proxy and her phone number is [phone] Screening blood work before next appointment. 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 Cullen. She takes amoxicillin prophylactically before dental work She is up-to-date on age-specific screening. Her sister Jessica Wallis is her healthcare proxy and her phone number is [phone] Screening blood work before next appointment. 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 Cullen. She takes amoxicillin prophylactically before dental work She is up-to-date on age-specific screening. Her sister Jessica Wallis is her healthcare proxy and her phone number is [phone] Screening blood work before next appointment. 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 Cullen. She takes amoxicillin prophylactically before dental work She is up-to-date on age-specific screening. Her sister Jessica Wallis is her healthcare proxy and her phone number is [phone] Screening blood work before next appointment. 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, paroxysmal atrial fibrillation and status post ablation time 2 and currently on Eliquis, nonischemic cardiomyopathy most likely secondary to tachycardia and EF is within reasonable limits and she goes to and she sees [facility] cardiology, melanoma right lower leg and she [...] and she goes to and she sees [facility] cardiology, melanoma right lower leg and she [...] and she goes to and she sees [facility] cardiology, melanoma right lower leg and she [...] Future Test Test Name Order Date Albumin/Creatinine Ratio,[id number] Lipid Panel-[id number] 06/01/2024 Comp. Metabolic Panel [id number] 2024 Next Appt Details Provider Name:TIFFANY PIERCE , 01/18/2025 01:30:00 PM, [address] [place] [address], [phone], Provider Name:TIFFANY PIERCE , 05/18/2025 08:30:00 AM, [address] [place] [address], [phone], Insurance Providers Payer Name Payer Address Payer Phone Subscriber Number Group Number Insured Name Patient Relationship to Insured Coverage Start Date Coverage End Date Medicare [address] [place] [phone] [id number] Sylvia Wallis Self - patient is the insured 3 Medical (General) History Medical History History ICD Code hypertension atrial fibrillation and she sees [facility] cardiology and status post ablation time 2 Melanoma right leg and statu s post Mohs procedure and she goes to [facility] Remote injury to the jaw and takes Flexe ril as needed Surgical History Surgery Date(Month/Year) right total knee replacement at [facility] Wrist surgery Dr Laughlin after fall hit by a dog appendectomy
[2024-12-30 13:55] VITALS: BP 108/80; PULSE 80; RESP 16; O2SAT 98; BMI 33.6
--- NOTE | 2024-12-30 13:55 | AM.OFFWIN_ITS ---
Intake Vital Signs 12/30/24 13:55 Height 5 ft 4 in Weight 196 lb BMI 33.6 BP 108/80 Blood Pressure Location Lt brachial Position Sitting Respiration 16 Pulse 80 Pulse Source Pulse Oximeter Pulse Oximetry (%) 98 Oxygen Delivery Method Room Air Intake Visit Reasons: EP RT leg/ankle injury? Intake Note: Pt is here today c/o Rt ankle foot arch and ankle pain: 2weeks ago fell ocean water couldn't get up b/c of the sand Patient Tobacco Use Status: Never used Tobacco Allergies latex Allergy (Verified 12/30/24 13:56) Rash Medication List - Last Reconciled 12/30/24 by Alfonso Pacekr MD apixaban (Eliquis) 5 mg PO BID [Folding Front Wheeled walker Duration: 99 days] lisinopril 5 mg PO DAILY metoprolol succinate ER 25 mg PO DAILY HPI EP RT leg/ankle injury? HPI [place] right away and some difficulty with bearing weight Pain improved thereafter and she was walking and bearing weight but started noticing worsening pain at right foot and ankle. Has increased swelling Started wearing a brace which is giving more support and helping her walk. Not taking any medications for this She is elevating her foot at home [facility] Surgical History History of carpal tunnel release History of elbow replacement History of bunionectomy of right great toe History of total right knee replacement Social History Patient Tobacco Use Status: Never used Tobacco Review of Systems Const Denies chills, Denies fatigue, Denies fever(s), Denies headache(s) and Denies weakness ENT Denies dizziness and Denies headache(s) Card Denies chest pain, Denies lightheadedness, Denies dyspnea and Denies other (Palpitations) Resp Denies cough, Denies dyspnea, Denies wheezing and Denies other ( shortness of breath) Musc Details: See HPI Denies numbness and Denies tingling Neuro Denies dizziness, Denies headache(s), Denies numbness, Denies tingling, Denies paresthesias and Denies weakness Psych Denies anxiety and Denies depression Endo Denies fatigue Aller/Immun Denies wheezing Physical Exam Vital Signs: Last Vital Signs Pulse 80 12/30/24 13:55 Resp 16 12/30/24 13:55 BP 108/80 12/30/24 13:55 Pulse Ox 98 12/30/24 13:55 Oxygen Delivery Method Room Air 12/30/24 13:55 BMI result Body Mass Index 33.6 Const General: no acute distress and well developed Nutritional Appearance: well nourished Orientation/consciousness: patient oriented x3 HEENT Head: Yes normocephalic and Yes atraumatic Eyes General: appearance normal, both eyes and all related structures Pupils: Equal, round and reactive pupils present EOM: EOMs intact bilaterally Resp Effort & Inspection: normal respiratory effort Auscultation: clear to auscultation bilaterally Cardio Rate: regular rate Rhythm: regular rhythm Heart sounds: S1 normal heart sound present, S2 normal heart sound present, no gallops, no murmurs and no rubs Neuro General: patient oriented x3 and gait normal Cranial nerves: Yes Equal, round and reactive pupils present Extrem Other: Swelling at right medial malleolus and arch of foot. Tenderness at posterior ridge of malleolus and inferior to malleolus as well as had arch of foot Some pain with inversion of foot Normal sensation at toes. Normal circulation Psych Affect: normal affect Assessment & Plan Assessment & Plan (1) Right foot pain: Code(s): M79.671 - Pain in right foot (2) Ankle pain, right: Code(s): M25.571 - Pain in right ankle and joints of right foot Plan Pain and swelling at right foot and ankle with tenderness at posterior edge of medial malleolus She is using a brace to help with ambulation Likely has a moderate sprain X-ray: Reading unavailabe at time of visit. Will call patient Recommend ice and elevation Avoiding NSAIDs due to atrial fibrillation and chronic anticoagulation Can use a topical NSAID however so will send a script for diclofenac gel Tylenol for additional pain control Continue brace Orders: Orders XR foot RT min 3V 12/30/24 M79.671 - Pain in right foot XR ankle RT 2V 12/30/24 M25.571 - Pain in right ankle and joints of right foot Medications: New diclofenac sodium 1% (Arthritis Pain (diclofenac)) apply to single knee, ankle, foot; for foot includes sole/toes/top of foot 4 grams topical BID 200 grams 2RF 30 days Coding Level of Care Code Est Pt Level 3 (98639) Diagnoses Right foot pain M79.671 Ankle pain, right M25.571
== END 2024-12-30 14:45 | disposition home or self-care (01) ==
PROVIDERS: PCP Hospitalist; Visit Provider Family Medicine
DX: M79.671 Pain in right foot (principal); M25.571 Pain in right ankle and joints of right foot

== ENCOUNTER 2024-12-30 13:42 | Outpatient (REF) | payer MEDICARE, SELFPAY ==
--- NOTE | ~2024-12-30 | XR_ITS ---
CLINICAL HISTORY: M79.671 - Pain in right foot 3 view right foot Comparison: None provided Findings: Prior bunionectomy. No acute fracture or dislocation. Xeyf-of-rghoplaa arthritic changes. No ankle effusion. 9 mm plantar tendon enthesophyte. 3 mm Achilles tendon enthesophyte. Nonspecific anterior soft tissue calcification in the distal foreleg. Probable 2nd, 3rd and 4th digit mallet toes. IMPRESSION: 1. No acute fracture or dislocation. 2. Postsurgical and degenerative changes. 3. Calcaneal spurs. This document has been electronically signed by: Sultana Coles DO on 12/30/2024 15:52:40
--- NOTE | ~2024-12-30 | XR_ITS ---
CLINICAL HISTORY: M25.571 - Pain in right ankle and joints of right foot 2 view right ankle Comparison: CR - XR FOOT RT MIN 3V - 12/30/24 14:39 EDT Findings: There is irregularity in the lateral malleolus with soft tissue swelling. A 4 mm ossific density is seen adjacent to the medial malleolus. No significant soft tissue swelling. Irregularity in the lateral talus appears well corticated suggesting sequela of remote trauma. No dislocation. A fixation screw is partly seen in the 1st metatarsal. No significant loss of joint space, osteophytes, or erosions. No ankle effusion. IMPRESSION: 1. Acute appearing small nondisplaced avulsion fracture in the lateral malleolus. 2. Age-indeterminate displaced small avulsion fracture in the medial malleolus. This document has been electronically signed by: Sultana Coles DO on 12/30/2024 15:56:43
== END 2024-12-30 13:43 | disposition home or self-care (01) ==
LOC: HO.HMGCX 13:42
PROVIDERS: PCP Hospitalist; Visit Provider Family Medicine
DX: M25.571 Pain in right ankle and joints of right foot (principal); M79.671 Pain in right foot
CPT/HCPCS: 73600; 73630; 99212

== ENCOUNTER → 2024-12-30 14:25 | Outpatient (BNV) | payer MEDICARE, SELFPAY | PROVIDERS: PCP Hospitalist; Visit Provider Radiology Diagnostic Radiology | DX: M77.51 Other enthesopathy of right foot and ankle (principal); S82.64XA Nondisplaced fracture of lateral malleolus of right fibula, initial encounter for closed fracture | CPT/HCPCS: 73600; 73630 ==

== ENCOUNTER 2025-01-11 08:05 | Outpatient (REF) | payer MEDICARE, SELFPAY ==
--- NOTE | ~2025-01-11 | XR_ITS ---
EXAMINATION: XR ANKLE, RIGHT CLINICAL INFORMATION: M25.579 - Pain in unspecified ankle and joints of unspecified foot COMPARISON: 12/30/2024. TECHNIQUE: AP, lateral, and mortise views of the right ankle. FINDINGS: Definite fracture, dislocation, or suspicious bone lesion. There is normal alignment. The ankle mortise is intact. The talar dome is preserved. Mild spurring noted from the tip of the medial malleolus and minimal spurring also involving the tip of the lateral malleolus. No definite fracture here. The syndesmosis is intact. There is a moderate-sized plantar calcaneal spur, and a tiny dorsal spur. No ankle joint effusion. Normal soft tissues. XR/XR ankle RT min 3V IMPRESSION: 1. No definite fracture or healing fracture. No acute findings of the right ankle. Electronically signed by: Michael Zuñiga MD 01/11/2025 10:20 AM EDT
== END 2025-01-11 08:06 | disposition home or self-care (01) ==
LOC: HO.HOSX 08:05
PROVIDERS: Visit Provider Physician Assistant
DX: S93.401D Sprain of unspecified ligament of right ankle, subsequent encounter (principal); W16.2 Fall in (into) filled bathtub or bucket of water; Y92.830 Public park as the place of occurrence of the external cause
CPT/HCPCS: 73610; 99212

== ENCOUNTER 2025-01-11 09:45 | Outpatient (AMB) | payer MEDICARE, SELFPAY ==
--- NOTE | 2025-01-11 10:01 | MHC.OFFVIS ---
Vital Signs 01/11/25 10:08 Height 5 ft 4 in Weight 196 lb BMI 33.6 Intake Visit Reasons: FC - right ankle injury, DOI 12/13/24 Intake Note: Sylvia is a 79 year old female who presents today for a evaluation of her right ankle injury, DOI 12/13/24. At the ED she was advised to continue her ankle brace that she purchased at [facility] and Tylenol and Voltaren as needed. Patient states that [place] and due to her feet sinking in the sand which lead her to fall. She notices she is able to walk and move your feet side to side but feels discomfort when moving foot in circular motion. She states she has been icing foot everyday at rest. IMPRESSION (ankle) : 1. Acute appearing small nondisplaced avulsion fracture in the lateral malleolus. 2. Age-indeterminate displaced small avulsion fracture in the medial malleolus. IMPRESSION (foot): 1. No acute fracture or dislocation. 2. Postsurgical and degenerative changes. 3. Calcaneal spurs. 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 She presented to the [facility] walk-in where x-rays were obtained and the patient was called a few days later after imaging has been red and was informed that she had avulsion fractures of both the medial and lateral malleolus. Patient has been using an [id number]-[id number] ankle brace for stabilization and support. She reports that the pain has been decreasing. She has been ambulating without the use of assistive devices. [facility] Surgical History History of carpal tunnel release History of elbow replacement History of bunionectomy of right great toe History of total right knee replacement Social History Patient Tobacco Use Status: Never used Tobacco Review of Systems Const All systems reviewed & are unremarkable except as noted in HPI and below Physical Exam Vital Signs: BMI result Body Mass Index 33.6 Const General: cooperative, healthy appearing and no acute distress Resp Effort & Inspection: normal respiratory effort and able to speak in complete sentences Extrem Other: Right ankle: Normal to inspection. No ecchymosis, erythema, or edema. Patient is able to demonstrate dorsiflexion, plantar flexion, pronation and supination. Negative anterior drawer. Sensation intact. Pedal Pulse intact. 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 She presented to the [facility] walk-in where x-rays were obtained and the patient was called a few days later after imaging has been red and was informed that she had avulsion fractures of both the medial and lateral malleolus. Patient has been using an [id number] ankle brace for stabilization and support. She reports that the pain has been decreasing. She has been ambulating without the use of assistive devices. While the office today, I have instructed the patient that she can discontinue using the brace as she is not experiencing much pain at this point. She can continue taking Tylenol and icing as needed. She is unable to take NSAIDs due to Eliquis use for AFib. Her PCP had ordered physical therapy in which the patient will attend. The patient was told that she had acute avulsion fractures on both the medial and lateral malleolus. However, upon my interpretation of the x-rays I do not see an acute finding. In fact, I do believe that this is chronic in nature. Repeat x-rays were obtained in the office today and reviewed by me, Mee Syed PA-C, and were negative for any acute fracture dislocation. She will follow up PRN, sooner if needed. Orders: Orders XR ankle RT min 3V Today M25.579 - Pain in unspecified ankle and joints of unspecified foot Coding Level of Care Code Est Pt Level 3 (39502) Diagnoses Right ankle sprain S93.401A
[2025-01-11 10:08] VITALS: BMI 33.6
--- OUTSIDE RECORDS SUMMARY | 2025-01-11 10:55 | XMS_ITS | Patient Health Record ---
Author Organization [employer] [facility] Address [address] [facility] [place] [address] Care Team Providers Care Active Directory Specialist Name Role Phone TIFFANY PIERCE Primary Care [...] Chol/HDL Ratio 2.7 0.0-4.4 Reason For Referral Reason Evaluation and manag ement - Dr Pierre Please evaluate and treat Diagnosis 1 Pain in right knee ( M25.561) Diagnosis 2 Pain in right ankle and joints of right foot (M25.571) Referral Organization [facility] Referring Provider First Name ALLEN Referring Provider Last Name [facility] Referring Provider Speciality Internal edicine Referred Provider Specialty Orthopedic S urgery General Notes Pending completed no te. Once done fax to [phone].Roxann Latraya 01/03/2025 10:40:54 AM >, Please call the patient to schedule the appointment, Encounter created and SMS sent to the pt.Romario Charmain 01/04/2025 07:29:00 AM > Referral Priority Routine Reason Evaluation and manag ement Diagnosis 1 Pain in right ankle and joints of right foot (M25.571) Referral Organization [facility] Referring Provider First Name TIFFANY Referring Provider Last Name [facility] Referring Provider Speciality Internal edicine Referred Provider Specialty Physical The rapist General Notes Referral printed and given to patient.Roxann Latraya 01/03/2025 10:38:52 AM > Referral Priority Routine Medications Medication SIG (Take, Route, Frequency, Duration) Notes Start Date End Date Status Amoxicillin 500 MG 4 capsules prior to dental procedures Orally Once daily Active Metoprolol Succinate ER 25 MG 1 tablet Orally Once a day Active Eliquis 5 MG as directed Orally Active Lisinopril 10 MG 1 tablet Orally Once a day; Duration: 90 days Active Problems Problem Type SNOMED Code ICD Code Onset Dates Problem Status W/U Status Risk Notes Problem Obesity due to excess calories (510406263) Other obesity due to excess calories (E66.09) Active confirmed Problem Essential hypertension (23328719) Essential (primary) hypertension (I10) Active confirmed Problem Cardiomyopathy (58360991) Cardiomyopathy, unspecified (I42.9) Active confirmed Problem Paroxysmal atrial fibrillation (511836579) Paroxysmal atrial fibrillation (I48.0) Active confirmed Vital Signs Heart Rate 75 /min 01/03/2025 Temperature 97.5 degrees Fahrenheit 01/03/2025 Oximetry 100 % 01/03/2025 Blood pressure diastolic 82 mm Hg 01/03/2025 Height 5'5'' in 01/03/2025 Blood pressure systolic 130 mm Hg 01/03/2025 Weight 197.1 lbs 01/03/2025 BMI 32.8 kg/m2 01/03/2025 Encounters Encounter Location Date Provider Diagnosis [address] [place] [address] 06/01/2024 ALLEN GUL Essential (primary) hypertension I10 ; Unspecified atrial fibrillation I48.91 ; Other obesity due to excess calories E66.09 and Dietary counseling and surveillance Z71.[address] [address] 11/14/2024 ALLEN GUL Essential (primary) hypertension I10 ; Encounter for general adult medical examination without abnormal findings Z00.00 ; Unspecified atrial fibrillation I48.91 ; Other obesity due to excess calories E66.09 ; Paroxysmal atrial fibrillation I48.0 and Cardiomyopathy, unspecified I42.[address] [place] [address] 01/03/2025 ALLEN GUL Pain in right ankle and joints of right foot M25.[address] [place] [address] 11/27/2024 ALLEN GUL [address] [place] [address] 11/30/2024 ALLEN GUL [address] [place] [address] 01/04/2025 ALLEN GUL Assessments Encounter Date Diagnosis (ICD Code) Assessment Notes Treatment Notes Treatment Clinical Notes Section Notes 06/01/2024 Essential (primary) hypertension (ICD-10 - I10) 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 Cullen. She takes amoxicillin prophylactically before dental work She is up-to-date on age-specific screening. Her sister Jessica Wallis is her healthcare proxy and her phone number is [phone] Screening blood work before next appointment. 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 Cullen. She takes amoxicillin prophylactically before dental work She is up-to-date on age-specific screening. Her sister Jessica Wallis is her healthcare proxy and her phone number is [phone] Screening blood work before next appointment. 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 hypertension, paroxysmal atrial fibrillation and status post ablation time 2 and currently on Eliquis, nonischemic cardiomyopathy most likely secondary to tachycardia and EF is within reasonable limits and she goes to and she sees [facility] cardiology, melanoma right lower leg and she [...] and she goes to and she sees [facility] cardiology, melanoma right lower leg and she [...] Screening blood work reviewed and questions answered 01/03/2025 Pain in right ankle and joints of right foot (ICD-10 - M25.571) 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 Plan is as follows Right ankle joint sprain. At this point it is improving and she is weightbearing. She was advised to keep icing the joint, keep it elevated and she is using a brace. She is also given referral to see Dr. Cullen and is given referral for physical therapy. 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 Cullen. She takes amoxicillin prophylactically before dental work She is up-to-date on age-specific screening. Her sister Jessica Wallis is her healthcare proxy and her phone number is [phone] Screening blood work before next appointment. 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 Cullen. She takes amoxicillin prophylactically before dental work She is up-to-date on age-specific screening. Her sister Jessica Wallis is her healthcare proxy and her phone number is [phone] Screening blood work before next appointment. 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, paroxysmal atrial fibrillation and status post ablation time 2 and currently on Eliquis, nonischemic cardiomyopathy most likely secondary to tachycardia and EF is within reasonable limits and she goes to and she sees [facility] cardiology, melanoma right lower leg and she [...] and she goes to and she sees [facility] cardiology, melanoma right lower leg and she [...] and she goes to and she sees [facility] cardiology, melanoma right lower leg and she [...] Future Test Test Name Order Date Albumin/Creatinine Ratio,[id number] Lipid Panel-[id number] 06/01/2024 Comp. Metabolic Panel [id number] 2024 Next Appt Details Provider Name:TIFFANY PIERCE , 01/18/2025 01:30:00 PM, [address] [place] [address], [phone], Provider Name:TIFFANY PIERCE , 05/18/2025 08:30:00 AM, [address] [place] [address], [phone], Insurance Providers Payer Name Payer Address Payer Phone Subscriber Number Group Number Insured Name Patient Relationship to Insured Coverage Start Date Coverage End Date Medicare [address] [place] [address] [id number] Sylvia Wallis Self - patient is the insured 3 Medical (General) History Medical History History ICD Code hypertension atrial fibrillation and she sees [facility] cardiology and status post ablation time 2 Melanoma right leg and statu s post Mohs procedure and she goes to [facility] Remote injury to the jaw and takes Flexe ril as needed Surgical History Surgery Date(Month/Year) right total knee replacement at [facility] Wrist surgery Dr Laughlin after fall hit by a dog appendectomy
--- OUTSIDE RECORDS SUMMARY | 2025-01-11 10:55 | XMS_ITS | Clinical Summary ---
Author Organization [address] [place] [address] [place] [address] Phone Care Team Providers Care Assembly Line Brazer Name Role Phone Mick Flores MD Primary Care Provider [phone] Allergies Active Allergy Reactions Criticality Noted Date [...] not crush or chew. 90 tablet 3 11/23/2024 Active Active Problems Problem Noted Date Diagnosed [...] 02/08/2023 Closed fracture of right distal radius Dislocation of right elbow 02/08/2023 Essential hypertension [...] - Started having persistent A-fib sometime in 2017 and was noted to have A. tach [...] Encounters Date Type Department Care Team Description 12/19/2024 Telephone [facility] [address] [facility] [address] [place] [phone] Yamilet Núñez MD 11/07/2024 8:10 AM EDT Office Visit [facility] [address] [place] [phone] Jerald Augustin NP Cardiomyopathy, unspecified type (CMS/HCC V24, CMS/HCC V28) (Primary Dx); Essential hypertension; Paroxysmal atrial fibrillation (CMS/HCC V24, CMS/HCC V28); Hyperlipidemia, unspecified hyperlipidemia type 10/18/2024 Telephone [facility] [address] [place] [address] Yamilet Núñez MD from Last 3 Months Family History Medical [...] 11/07/2024 8:06 AM EDT Plan of Treatment Upcoming Encounters Date Type Department Care Team (Late st Contact Info) Description 02/12/2025 9:40 AM EDT Consult [facility] [address] [facility] [address] [place] [address] Jerald Augustin NP [address] [place] [address] [place] [address] Health Maintenance Due Date Last Done Comments [...] GEMUSE QTc 423 ms GEMUSE P Wave Dana -7 degrees GEMUSE R Dana -53 degrees GEMUSE T Dana 54 degrees GEMUSE ECG Interpretation Normal sinus rhythm Left anterior fascicular block Abnormal ECG When compared with ECG of 15-FEB-2023 11:02, No significant change was found Confirmed by YAMILET NÚÑEZ ([id number]) on 12/04/2024 4:04:11 PM GEMUSE 11/07/2024 8:18 AM EDT 12/04/2024 4:04 PM EDT Jerald Augustin NP ECG ORDERABLES Edited Result - Final COSME * (ABNORMAL) Lipid panel with reflex to direct LDL (08/22/2024 10:04 AM EDT) Cholesterol 205(H) 0 - 200 mg/dL LAB CHEMISTRY METHOD 08/22/2024 12:11 PM EDT [facility] Triglycerides 92 0 - 150 mg/dL LAB CHEMISTRY METHOD 08/22/2024 12:11 PM EDT [facility] HDL 76 >=40 mg/dL LAB CHEMISTRY METHOD 08/22/2024 12:11 PM EDT [facility] LDL Calculated 111(H) 0 - 100 mg/dL LAB CHEMISTRY METHOD 08/22/2024 12:11 PM EDT [facility] VLDL Cholesterol Byron 18.4 mg/dL LAB CHEMISTRY METHOD 08/22/2024 12:11 PM EDT [facility] Non HDL Chol. (LDL+VLDL) 129 <145 mg/dL LAB CHEMISTRY METHOD 08/22/2024 12:11 PM EDT [facility] Chol/HDL Ratio 2.7 0.0 - 4.4 LAB CHEMISTRY METHOD 08/22/2024 12:11 PM EDT [facility] Blood Venous blood specimen / Unknown Venipuncture / Unknown 08/22/2024 10:04 AM EDT 08/22/2024 11:07 AM EDT us Mick Flores MD LAB BLOOD ORDERABLES Final Res ult [facility] [address] [place] [address], [place] [phone] * Comprehensive metabolic panel (08/22/2024 10:04 AM EDT) Sodium 138 133 - 145 mmol/L LAB CHEMISTRY METHOD 08/22/2024 12:11 PM [facility] Potassium 3.7 3.5 - 5.5 mmol/L LAB CHEMISTRY METHOD 08/22/2024 12:11 PM [facility] Chloride 104 96 - 110 mmol/L LAB CHEMISTRY METHOD 08/22/2024 12:11 PM [facility] CO2 29 21 - 32 mmol/L LAB CHEMISTRY METHOD 08/22/2024 12:11 PM [facility] Anion Gap 5 3 - 11 LAB CHEMISTRY METHOD 08/22/2024 12:11 PM [facility] Glucose 93 70 - 100 mg/dL LAB CHEMISTRY METHOD 08/22/2024 12:11 PM [facility] BUN 18 5 - 25 mg/dL LAB CHEMISTRY METHOD 08/22/2024 12:11 PM [facility] Creatinine 0.82 0.50 - 1.10 mg/dL LAB CHEMISTRY METHOD 08/22/2024 12:11 PM [facility] eGFR 74 >=60 mL/min/1. 73m2 LAB CHEMISTRY METHOD 08/22/2024 12:11 PM [facility] Comment:Calculation based on the Chronic Kidney Disease Epidemiology Collaboration (CKD-EPI) equation refit without adjustment for race. BUN/Creatinine Ratio 22.0 LAB CHEMISTRY METHOD 08/22/2024 12:11 PM [facility] Calcium 9.8 8.5 - 10.5 mg/dL LAB CHEMISTRY METHOD 08/22/2024 12:11 PM [facility] AST (SGOT) 22 10 - 42 unit/L LAB CHEMISTRY METHOD 08/22/2024 12:11 PM [facility] ALT (SGPT) 47 10 - 60 unit/L LAB CHEMISTRY METHOD 08/22/2024 12:11 PM EDT [facility] Alkaline Phosphatase 103 42 - 121 unit/L LAB CHEMISTRY METHOD 08/22/2024 12:11 PM EDT [facility] Total Protein 7.6 6.0 - 8.0 g/dL LAB CHEMISTRY METHOD 08/22/2024 12:11 PM EDT [facility] Albumin 4.1 3.2 - 5.0 g/dL LAB CHEMISTRY METHOD 08/22/2024 12:11 PM EDT [facility] Total Bilirubin 1.2 0.0 - 1.4 mg/dL LAB CHEMISTRY METHOD 08/22/2024 12:11 PM EDT [facility] Blood Venous blood specimen / Unknown Venipuncture / Unknown 08/22/2024 10:04 AM EDT 08/22/2024 11:07 AM EDT Mick Flores MD LAB BLOOD ORDERABLES Final Res ult [facility] [address] [place] [address], from Last 3 Months or Most Recently Relevant [place] [id number] MEDICARE Care Teams Assembly Line Brazer Relationship Specialty Start Date End Date Mick Flores MD [address] [place] [address] PCP - General Internal Medicine 07/11/24
== END 2025-01-11 10:23 | disposition home or self-care (01) ==
LOC: HO.HOS 09:46
PROVIDERS: PCP Hospitalist; Visit Provider Physician Assistant
DX: S93.401A Sprain of unspecified ligament of right ankle, initial encounter (principal)
CPT/HCPCS: 99213

== ENCOUNTER → 2025-01-11 09:52 | Outpatient (BNV) | payer MEDICARE, SELFPAY | PROVIDERS: Visit Provider Radiology Diagnostic Radiology | DX: M25.571 Pain in right ankle and joints of right foot (principal) | CPT/HCPCS: 73610 ==

== ENCOUNTER → 2025-02-02 08:54 | Outpatient (BNVA) | payer MEDICARE, SELFPAY | PROVIDERS: PCP Hospitalist | DX: Z01.818 Encounter for other preprocedural examination (principal) ==

== ENCOUNTER 2025-02-24 07:38 | Outpatient (REF) | payer MEDICARE, SELFPAY ==
--- NOTE | ~2025-02-24 | CT_ITS ---
CLINICAL HISTORY: M17.12 - Unilateral primary osteoarthritis, left knee --- Additional Notes or Special Instructions: per BIOMET protocol CT left knee without contrast Comparison: DX/ND/SR - XR KNEE 1 VIEW LEFT - 05/04/24 14:04 EST Findings: Mild left hip osteoarthritis. Colonic diverticulosis. No fracture or dislocation. Severe tricompartmental knee osteoarthritis. Proximal tibiofibular joint osteoarthritis. Trace knee joint effusion. No Griffith's cyst. The ankle joint is maintained. No tibiotalar joint effusion. Subtalar and midfoot osteoarthritis. Small posterior calcaneal enthesophytes. IMPRESSION: Severe tricompartmental knee osteoarthritis. This document has been electronically signed by: Thee Galvin DO on 02/26/2025 11:55:05
--- OUTSIDE RECORDS SUMMARY | 2025-02-24 07:41 | XMS_ITS | Patient Health Record ---
Author Organization [email or web address] Address [address] [place] [address] Care Team Providers Care Biomathematician Name Role Phone TIFFANY PIERCE Primary Care [...] 7 <30 mg/g creat Reason For Referral Reason Evaluation and manag ement - Dr Pierre Please evaluate and treat Diagnosis 1 Pain in right knee ( M25.561) Diagnosis 2 Pain in right ankle and joints of right foot (M25.571) Referral Organization [facility] Referring Provider First Name [facility] Referring Provider Last Name [facility] Referring Provider Speciality Internal edicine Referred Provider Specialty Orthopedic S urgery General Notes Pending completed no te. Once done fax to [phone].Roxann Latraya 01/03/2025 10:40:54 AM >, Please call the patient to schedule the appointment, Encounter created and SMS sent to the pt.Romario Charmain 01/04/2025 07:29:00 AM > Referral Priority Routine Reason Evaluation and manag ement Diagnosis 1 Pain in right ankle and joints of right foot (M25.571) Referral Organization [facility] Referring Provider First Name ALLEN Referring Provider Last Name [facility] Referring Provider Speciality Internal edicine Referred Provider Specialty Physical The rapist General Notes Referral printed and given to patient.Roxann Latraya 01/03/2025 10:38:52 AM > Referral Priority Routine Medications Medication SIG (Take, Route, Frequency, Duration) Notes Start Date End Date Status Eliquis 5 MG as directed Orally Active Amoxicillin 500 MG 4 capsules prior to dental procedures Orally Once daily Active Lisinopril 10 MG 1 tablet Orally Once a day; Duration: 90 days Active Metoprolol Succinate ER 25 MG 1 tablet Orally Once a day Active Problems Problem Type SNOMED Code ICD Code Onset Dates Problem Status W/U Status Risk Notes Problem Obesity due to excess calories (329808258) Other obesity due to excess calories (E66.09) Active confirmed Problem Essential hypertension (65554902) Essential (primary) hypertension (I10) Active confirmed Problem Cardiomyopathy (44976494) Cardiomyopathy, unspecified (I42.9) Active confirmed Problem Paroxysmal atrial fibrillation (434654752) Paroxysmal atrial fibrillation (I48.0) Active confirmed Vital Signs Heart Rate 84 /min 02/15/2025 Temperature 97.1 degrees Fahrenheit 02/15/2025 Blood pressure diastolic 80 mm Hg 02/15/2025 Oximetry 98 % 02/15/2025 Height 5'5'' in 02/15/2025 Blood pressure systolic 126 mm Hg 02/15/2025 Weight 193.8 lbs 02/15/2025 BMI 32.25 kg/m2 02/15/2025 Encounters Encounter Location Date Provider Diagnosis [address] [place] [address] 06/01/2024 ALLEN GUL Essential (primary) hypertension I10 ; Unspecified atrial fibrillation I48.91 ; Other obesity due to excess calories E66.09 and Dietary counseling and surveillance Z71.[address] [place] [address] 11/14/2024 ALLEN GUL Essential (primary) hypertension I10 ; Encounter for general adult medical examination without abnormal findings Z00.00 ; Unspecified atrial fibrillation I48.91 ; Other obesity due to excess calories E66.09 ; Paroxysmal atrial fibrillation I48.0 and Cardiomyopathy, unspecified I42.[address] [place] [address] 01/03/2025 ALLEN GUL Pain in right ankle and joints of right foot M25.[address] [place] [address] 02/15/2025 ALLEN GUL Encounter for other preprocedural examination Z01.[address] [place] [address] 11/27/2024 ALLEN L [address] [place] [address] 11/30/[address] [place] [address] 01/04/2025 [facility] [address] [facility] [address] [place] [address] 01/16/2025 [facility] [address] [facility] [address] [place] [address] 02/15/2025 [facility] Assessments Encounter Date Diagnosis (ICD Code) Assessment Notes Treatment Notes Treatment Clinical Notes Section Notes 06/01/2024 Essential (primary) hypertension (ICD-10 - I10) 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 Cullen. She takes amoxicillin prophylactically before dental work She is up-to-date on age-specific screening. Her sister Jessica Wallis is her healthcare proxy and her phone number is [phone] Screening blood work before next appointment. 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 Cullen. She takes amoxicillin prophylactically before dental work She is up-to-date on age-specific screening. Her sister Jessica Wallis is her healthcare proxy and her phone number is [phone] Screening blood work before next appointment. 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 Paroxysmal atrial fibrillation/hyperte nsion. She is status post ablation times 2 [...] and she goes to and she sees [facility] cardiology, melanoma right lower leg and she had a Mohs procedure and she follows up with dermatology on regular basis is here annual physical. Paroxysmal atrial fibrillation/hyperte nsion. She is status post ablation times 2 [...] and she goes to and she sees [facility] cardiology, melanoma right lower leg and [...] and is given referral for physical therapy. 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 Cardiac assessment. Patient can easily do 4 METS. Blood pressure and exam is within normal limits.Her last echocardiogram with cardiology showed preserved EF. She was seen by mix crusher operator recently and was cleared for surgery. Pulmonary assessment. Lung exam is normal. She use a CPAP machine and she may need CPAP or BiPAP after extubation. She will continue metoprolol and she will hold Eliquis 48 hours before procedure. She had a CBC, comprehensive panel at [facility] which is not available and EKG recently at cardiology office which was reviewed. Anticoagulation as per orthopedic protocol. Delirium. Patient is high risk for delirium after surgery. Avoid heavy doses of narcotics, benzodiazepines and anticholinergic agents. Nothing by mouth after midnight. Low risk procedure in a low risk patient. According to revised cardiac risk index her risk for any cardiac event is 0.5%. 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 Paroxysmal atrial fibrillation/hyperte nsion. She is status post ablation times 2 [...] with hypertension, atrial fibrillation and she sees [facility] cardiology, melanoma right leg and follow-up [...] Status post right total knee replacement at [facility] by Dr. Cullen. She takes amoxicillin prophylactically before dental work She is up-to-date on age-specific screening. Her sister Jessica Wallis is her healthcare proxy and her phone number is [phone] Screening blood work before next appointment. 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 Cullen. She takes amoxicillin prophylactically before dental work She is up-to-date on age-specific screening. Her sister Jessica Wallis is her healthcare proxy and her phone number is [phone] Screening blood work before next appointment. 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 Paroxysmal atrial fibrillation/hyperte nsion. She is status post ablation times 2 [...] and she goes to and she sees [facility] cardiology, melanoma right lower leg and she had a Mohs procedure and she follows up with dermatology on regular basis is here annual physical. Paroxysmal atrial fibrillation/hyperte nsion. She is status post ablation times 2 [...] and she goes to and she sees [facility] cardiology, melanoma right lower leg and she had a Mohs procedure and she follows up with dermatology on regular basis is here annual physical. Paroxysmal atrial fibrillation/hyperte nsion. She is status post ablation times 2 [...] Future Test Test Name Order Date Albumin/Creatinine Ratio,[id number] Lipid Panel-[id number] 06/01/2024 Comp. Metabolic Panel [id number] 2024 Next Appt Details Provider Name:TIFFANY Cuco PIERCE , 05/18/2025 08:30:00 AM, [address] [place] [address], [phone], Insurance Providers Payer Name Payer Address Payer Phone Subscriber Number Group Number Insured Name Patient Relationship to Insured Coverage Start Date Coverage End Date Medicare [address] [facility] [place] [phone] [id number] Sylvia Wallis Self - patient is the insured 3 Medical (General) History Medical History History ICD Code hypertension atrial fibrillation and she sees [facility] cardiology and status post ablation time 2 Melanoma right leg and statu s post Mohs procedure and she goes to Center dermatology Remote injury to the jaw and takes Flexe ril as needed Surgical History Surgery Date(Month/Year) right total knee replacement at [facility] Wrist surgery Dr Laughlin after fall hit by a dog appendectomy
--- OUTSIDE RECORDS SUMMARY | 2025-02-24 07:41 | XMS_ITS | Clinical Summary ---
Author Organization [address] [place] [address] [place] [phone] Phone Care Team Providers Care Dog Beautician Name Role Phone Mick Flores MD Primary Care Provider [phone] Allergies Active Allergy Reactions Criticality Noted Date Comments Latex Rash 12/22/2021 Medications apixaban (Eliquis) 5 mg tablet [...] Active CHOLECALCIFEROL , VITAMIN D3, ORAL Take 2,000 mcg by mouth 1 (one) time each day. Active multivitamin (MULTIPLE VITAMINS ORAL) Take by [...] or chew. 90 tablet 3 11/23/2024 Active calcium carbonate (CALCIUM 500 ORAL) Take 500 mg by mouth 1 (one) time each day. Active Active Problems Problem Noted Date Diagnosed Date Pre-op evaluation 02/12/2025 Assessment & Plan (02/12/2025 10:17 AM EDT): She is scheduled to have a left knee total replacement with Dr. Cullen at [facility]. Despite her knee pain she still remains active throughout the day and is not endorsing any new or worsening anginal symptoms at the appointment today. Patient should hold Eliquis 48 hours prior to the surgery. Should remain on the metoprolol during surgery. Would avoid large fluid shifts. Patient has no cardiac contraindication to undergoing this left knee total replacement. Based on the revised cardiac risk index the patient has a 0.5% risk of having a major cardiac event within 30 days of the surgery. Hyperlipidemia 11/07/2024 Assessment & Plan (02/12/2025 10:16 AM EDT): We will discuss this at her next appointment in a couple of months after her left knee total replacement. LDL is elevated at 111 and would like this under 100 for risk reduction. May need to initiate statin in the future. Assessment & Plan (11/07/2024 8:50 AM EDT): [...] on cmy meds, continue Assessment & Plan (02/12/2025 10:14 AM EDT): Well-controlled on current meds. She is utilizing lisinopril 5 mg p.o. daily in addition to the metoprolol succinate 25 mg p.o. daily. Educated on the importance of diet lifestyle to help further assist in reducing blood pressure. The patient was encouraged to follow low-salt low-fat diet, make purposeful strides towards weight loss, and engage in routine aerobic exercise as tolerated. Assessment & Plan (11/07/2024 8:46 AM EDT): Well-controlled on current medications. Please continue the metoprolol and lisinopril. Obstructive sleep apnea 05/27/2021 Overview (07/12/2024): Last Assessment & Plan: -compliant with CPAP Cardiomyopathy ([facility] V24, [facility] V28) 2020 Overview (11/07/2024): - See history under paroxysmal atrial fibrillation section Assessment & Plan (02/12/2025 10:15 AM EDT): Echo from 2022 revealed an LVEF of 55-60%. This is normal. Will continue to monitor. Likely for surveillance we will update an echocardiogram next year. Assessment & Plan (11/07/2024 8:45 AM EDT): [...] is adherent with CPAP Assessment & Plan (02/12/2025 10:14 AM EDT): Patient is in sinus rhythm at the appointment today. Denies any abnormal bleeding on the Eliquis which she is on for CVA prophylaxis. She is also rate controlled metoprolol 25 mg p.o. daily. Should remain anticoagulated due to an elevated CHADS2 Vascor. Assessment & Plan (11/07/2024 8:46 AM EDT): No major reoccurrence. Excellent functional capacity. Continue low-dose metoprolol and Eliquis 5 mg p.o. twice daily for CVA prophylaxis. Encounters Date Type Department Care Team Description 02/12/2025 9:40 AM EDT Consult [facility] [address] [place] [phone] Jerald Augustin NP Cardiomyopathy, unspecified type (CMS/HCC V24, CMS/HCC V28) (Primary Dx); Essential hypertension; Hyperlipidemia, unspecified hyperlipidemia type; Paroxysmal atrial fibrillation (CMS/HCC V24, CMS/HCC V28); Pre-op evaluation 12/19/2024 Telephone [facility] [address] [place] [phone] Yamilet Hill MD from Last 3 Months Family History [...] Sign Reading Time Taken Comments Blood Pressure 120/76 02/12/2025 9:36 AM EDT Pulse 70 02/12/2025 9:36 AM EDT Temperature - - Respiratory Rate - - Oxygen Saturation 96% 02/12/2025 9:36 AM EDT Inhaled Oxygen Concentration - - Weight 90.2 kg (198 lb 12.8 oz) 02/12/2025 9:36 AM EDT Height 165.1 cm (5' 5 ) 02/12/2025 9:36 AM EDT Body Mass Index 33.08 02/12/2025 9:36 AM EDT Plan of Treatment Health Maintenance Due Date Last Done Comments DTaP,Tdap,and Td Vaccines (1 - Tdap) 08/09/1966 Pneumococcal Vaccine: 50+ Years (1 of 2 - PCV) 08/09/1966 Falls Risk Assessment 04/26/2022 Hepatitis C Screening [...] Date/Time Associated Diagnosis Comments ECG 12-LEAD Routine 02/12/2025 10:17 AM EDT Cardiomyopathy, unspecified type (CMS/HCC V24, CMS/HCC V28) Essential hypertension Hyperlipidemia, unspecified hyperlipidemia type Paroxysmal atrial fibrillation (CMS/HCC V24, CMS/HCC V28) COMPREHENSIVE METABOLIC PANEL Routine 08/22/2024 10:04 AM EDT Essential hypertension, benign LIPID PANEL WITH REFLEX TO DIRECT LDL Routine 08/22/2024 10:04 AM EDT Essential hypertension, benign from Last 3 Months or Most Recently Relevant to Health Maintenance Results * ECG 12 lead (02/12/2025 10:17 AM EDT) 02/12/2025 9:47 AM EDT us Jerald Augustin NP ECG ORDERABLES Final Result GEMUSE * (ABNORMAL) Lipid panel with reflex to direct LDL (08/22/2024 10:04 AM EDT) Cholesterol 205(H) 0 - 200 mg/dL LAB CHEMISTRY METHOD 08/22/2024 12:11 PM EDT [facility] Triglycerides 92 0 - 150 mg/dL LAB CHEMISTRY METHOD 08/22/2024 12:11 PM EDT [facility] HDL 76 >=40 mg/dL LAB CHEMISTRY METHOD 08/22/2024 12:11 PM EDT [facility] LDL Calculated 111(H) 0 - 100 mg/dL LAB CHEMISTRY METHOD 08/22/2024 12:11 PM EDT [facility] VLDL Cholesterol Byron 18.4 mg/dL LAB CHEMISTRY METHOD 08/22/2024 12:11 PM T [facility] Non HDL Chol. (LDL+VLDL) 129 <145 mg/dL LAB CHEMISTRY METHOD 08/22/2024 12:11 PM T [facility] Chol/HDL Ratio 2.7 0.0 - 4.4 LAB CHEMISTRY METHOD 08/22/2024 12:11 PM T [facility] Blood Venous blood specimen / Unknown Venipuncture / Unknown 08/22/2024 10:04 AM EDT 08/22/2024 11:07 AM EDT us Mick Flores MD LAB BLOOD ORDERABLES Final Res ult [facility] [address] [place] [address], * Comprehensive metabolic panel (08/22/2024 10:04 AM EDT) Sodium 138 133 - 145 mmol/L LAB CHEMISTRY METHOD 08/22/2024 12:11 PM [facility] Potassium 3.7 3.5 - 5.5 mmol/L LAB CHEMISTRY METHOD 08/22/2024 12:11 PM [facility] Chloride 104 96 - 110 mmol/L LAB CHEMISTRY METHOD 08/22/2024 12:11 PM [facility] CO2 29 21 - 32 mmol/L LAB CHEMISTRY METHOD 08/22/2024 12:11 PM [facility] Anion Gap 5 3 - 11 LAB CHEMISTRY METHOD 08/22/2024 12:11 PM [facility] Glucose 93 70 - 100 mg/dL LAB CHEMISTRY METHOD 08/22/2024 12:11 PM [facility] BUN 18 5 - 25 mg/dL LAB CHEMISTRY METHOD 08/22[facility]24 12:[facility] Creatinine 0.82 0.50 - 1.10 mg/dL LAB CHEMISTRY METHOD 08/22/2024 12:11 PM [facility] eGFR 74 >=60 mL/min/1. 73m2 LAB CHEMISTRY METHOD 08/22/2024 12:11 PM [facility] Comment:Calculation based on the Chronic Kidney Disease Epidemiology Collaboration (CKD-EPI) equation refit without adjustment for race. BUN/Creatinine Ratio 22.0 LAB CHEMISTRY METHOD 08/22/2024 12:11 PM [facility] Calcium 9.8 8.5 - 10.5 mg/dL LAB CHEMISTRY METHOD 08/22/2024 12:11 PM [facility] AST (SGOT) 22 10 - 42 unit/L LAB CHEMISTRY METHOD 08/22/2024 12:11 PM [facility] ALT (SGPT) 47 10 - 60 unit/L LAB CHEMISTRY METHOD 08/22/2024 12:11 PM [facility] Alkaline Phosphatase 103 42 - 121 unit/L LAB CHEMISTRY METHOD 08/22/2024 12:11 PM [facility] Total Protein 7.6 6.0 - 8.0 g/dL LAB CHEMISTRY METHOD 08/22/2024 12:11 PM [facility] Albumin 4.1 3.2 - 5.0 g/dL LAB CHEMISTRY METHOD 08/22/2024 12:11 PM [facility] Total Bilirubin 1.2 0.0 - 1.4 mg/dL LAB CHEMISTRY METHOD 08/22/2024 12:11 PM [facility] Blood Venous blood specimen / Unknown Venipuncture / Unknown 08/22/2024 10:04 AM EDT 08/22/2024 11:07 AM EDT us Mick Flores MD LAB BLOOD ORDERABLES Final Res ult [facility] [address] [place] [address], from Last 3 Months or Most Recently Relevant to Health [place] [id number] MEDICARE Care Teams Dog Beautician Relationship Specialty Start Date End Date Mick Flores MD [address] [place] [phone] PCP - General Internal Medicine 07/11/24
== END 2025-02-24 07:39 | disposition home or self-care (01) ==
LOC: HO.CT 07:38
PROVIDERS: PCP Hospitalist; Visit Provider Orthopaedic Surgery
DX: M17.12 Unilateral primary osteoarthritis, left knee (principal)
CPT/HCPCS: 73700

== ENCOUNTER → 2025-02-24 07:41 | Outpatient (BNV) | payer MEDICARE, SELFPAY | PROVIDERS: PCP Hospitalist; Visit Provider Radiology Diagnostic Radiology | DX: M17.12 Unilateral primary osteoarthritis, left knee (principal) | CPT/HCPCS: 73700 ==

== ENCOUNTER 2025-03-08 09:50 | Outpatient (AMB) | payer MEDICARE, SELFPAY ==
--- NOTE | 2025-03-08 10:00 | A.OFFVIS_ITS ---
Vital Signs 03/08/25 10:05 Height 5 ft 4 in Weight 196 lb BMI 33.6 Intake Visit Reasons: Pre-Op: L TKA w/NE 03/13/25 Intake Note: Sylvia is a 79 year old female who presents today for a preoperative left total knee arthroplasty, scheduled with Dr. Cullen on 03/13/25. Pain management agreement reviewed and signed. Allergies latex Allergy (Intermediate, Verified 03/08/25 10:05) Rash Medication List - Last Reconciled 03/08/25 by Al Pederson PA-C apixaban (Eliquis) 5 mg PO BID [Folding Front Wheeled walker Duration: 99 days] lisinopril 5 mg PO QAM metoprolol succinate ER 25 mg PO QAM HPI Comments Details: Ms Bimal Head. presents to the office today for Orthopedic Pre op clearance. Scheduled for a left total knee arthroplasty with Dr. Cullen on 03/13/2025. She has had left knee pain for little over a year and has had multiple steroid injections with little effect. She continues to have limitations in daily activities especially walking where she needs to constantly stop and take breaks. She had a right total knee arthroplasty performed by Dr. Cullen in approximately 10-12 years ago with good results. Patient lives alone at home in a 1 level home. She does have a good support system. Primary care clearance obtained on 02/15/[address] Preeti Flores: 79-year-old lady with hypertension, obstructive sleep apnea, paroxysmal AFib and status post ablation x2 currently on Eliquis, nonischemic cardiomyopathy most likely secondary to tachycardia and EF is within reasonable limits and she goes to and sees [facility], melanoma right lower leg and she had a Mohs procedure and she followed up with dermatology on a regular basis is here for preop physical for left total knee arthroplasty by Dr. Cullen at [facility]. She is physically active and does not complain of any exertional chest pain or pressure shortness of breath. She has sleep apnea and uses a CPAP machine and does not complain of any daytime sleepiness. She denies any other systemic or constitutional symptoms. Low risk procedure in a low risk patient. According to revised cardiac risk index her risk for any cardiac event is 0.5%. No contraindications for the procedure at this point in time. Cardiac clearance obtained on 02/12/2025 by Jerald Augustin [employer]; 1. Paroxysmal atrial fibrillation status post ablation x2, now maintaining sinus rhythm on Eliquis for CVA prophylaxis 2. Nonischemic cardiomyopathy likely tachycardia mediated with recovery Of ejection fraction 3. Hypertension Patient should hold Eliquis 48 hours prior to surgery. Should remain on metoprolol during surgery. Would avoid large fluid shifts. Patient has no cardiac contraindication to undergoing this left knee total replacement. Based on the revised cardiac risk index the patient has a 0.5% risk of having a major cardiac event within 30 days of the surgery. [facility] Medical History (Updated 02/13/25 @ 10:07 by Luicnda Sanchez RN) Melanoma Heartburn Hyperlipidemia HTN (hypertension) Cardiomyopathy ANIRUDH (obstructive sleep apnea) Atrial fibrillation Osteoarthritis Surgical History Hx of bilateral cataract extraction H/O colonoscopy History of cardiac ablation for atrial fibrillation History of elbow replacement History of bunionectomy of right great toe History of total right knee replacement Social History Are you a primary resident care manager to a significant other at home: No Do you presently have visiting nurse or other home services: No Patient Tobacco Use Status: Never used Tobacco Review of Systems Const All systems reviewed & are unremarkable except as noted in HPI and below Physical Exam Vital Signs: BMI result Body Mass Index 33.6 Const General: cooperative, healthy appearing, no acute distress, well developed and alert HEENT Head: Yes normal to inspection, Yes normocephalic and Yes atraumatic Mouth: moist mucous membranes Eyes General: appearance normal, both eyes and all related structures EOM: EOMs intact bilaterally Chest Other: no audible wheezing. Resp Other: No audible wheezing Effort & Inspection: normal respiratory effort Cardio Other: Radial pulse palpable with no rythmic abnormalities Back/Spine/Pelvis Cervical Spine: normal cervical lordosis Skin General skin exam: no rashes or lesions noted Neuro General: no focal motor deficits Extrem Other: Left knee normal to inspection without any open wounds or abrasions with 5-120 degrees of motion. Tenderness to palpation mostly over the medial compartment. 2+ dorsalis pedis pulse. Intact EHL/tib ant. gastroc/Skin intact to light touch Psych Appearance: grossly normal and well kempt Mental Status: mental status grossly normal Speech and movement: Normal speech and movement present Affect: normal affect Attitude: cooperative Assessment & Plan Assessment & Plan (1) Osteoarthritis of left knee: Code(s): M17.12 - Unilateral primary osteoarthritis, left knee Category: Medical Plan: Ms Bimal Chou has exhausted all conservative measures consisting of lifestyle modifications, physical therapy, analgesics, corticosteroid injections and use of assisted devices and continues to have significant limitations in daily activities along with decreased quality of life. Given the patient's desire to improve their quality of life, surgical intervention consisting of joint replacement surgery is recommended at this time.? We discussed the procedure in detail today; which includes pre op preparation with labs and reviewing patients medication regimen prior to surgery. She will stop her Eliquis 48 hours prior to surgery. She was sent to the lab to obtain a CBC BMP and type and screen. I discussed at length the post op course which includes physical therapy services in the hospital along with the discharge routine and the patients plan upon discharge. Patient will would like to be discharged home with VNA services. She does have a front wheeled walker at home. I explained to the patient, once they are DC home, they will receive VNA services which will include PT 2-3x per week. We also discussed their choice for outpatient PT once they are discharged from home PT. She has attended [facility] for physical therapy in the past and would like to attend for her left TKA. Post op DVT ppx was also discussed and the considering the patients history with AFib she will have 1 dose of Lovenox and resume her Eliquis 48 hours postop. I reviewed with the patient their post op pain medication regimen along with the detailed wean program. The patient did express understanding of this and agreed to the narcotic policy. Lastly, I discussed with the patient the risks to the procedure. Risks including but not limited to infection, injury to surrounding nerves, tissue , bone, small and large vessels, stiffness, aseptic loosening, fracture, dislocation, amputation, DVT/PE along with intraoperative complications including but not limited to . The patient does express understanding, all questions were answered and the patient would like to proceed? with left total knee arthroplasty with Dr. Cullen. Consents were signed and dated while in the office today.? Post-Operative Recovery Notes: * DVT ppx : Lovenox x1 then resume Eliquis * Hospital DC plan: Home with VNA * Physical Therapy: [facility]. Order was given to the patient to make an appointment. * Walker obtained Orders: Orders Basic Metabolic Panel Today Z01.818 - Encounter for other preprocedural examination Complete Blood Count Auto Diff Today Z01.818 - Encounter for other preprocedural examination PT Evaluation and Treatment Today Z96.652 - Presence of left artificial knee joint Type and Screen Today Z01.818 - Encounter for other preprocedural examination Coding Level of Care Code Tele Est Pt Level 3 (07728) Complex EM visit Add On G2211 Diagnoses Osteoarthritis of left knee M17.12
[2025-03-08 10:05] VITALS: BMI 33.6
--- OUTSIDE RECORDS SUMMARY | 2025-03-08 11:19 | XMS_ITS | Encounter Summary ---
Author Organization [facility] Address [address] [place] [address] Care Team Providers Care Room Designer Name Role Phone Mick Flores MD Primary Care Provider [phone] Reason for Visit * Reason Onset Date Comments Clearance letter 03/07/2025 Encounter Details Date Type Department Care Team ([facility] st Contact Info) Description 03/07/2025 Telephone [facility] [address] [facility] [address] [place] [phone] Yamilet Hill MD [address] [place] [address] Social History Tobacco Use Types Packs/Day Years [...] as of this encounter Progress Notes * Aranza Fritz MA - 03/07/2025 11:20 AM EDT I faxed clearance letter to [facility]. * Jerald Augustin NP - 03/07/2025 11:08 AM EDT Can we please send my consult note over to [facility] please. * Britt Guzmán - 03/07/2025 10:45 AM EDT Gracie from [facility] called and asked for the clearance letter from the most recent pre op appointment on 02/12/25. [facility] is having their pre op with the patient on 03/08/25 and are requesting the clearance letter be faxed over before then. The fax number is [phone]. documented in this encounter Plan of Treatment Not on file documented as of this encounter Visit Diagnoses Not on filedocumented in this encounter Care Teams Room Designer Relationship Specialty Start Date End Date Mick Flores MD [address] [place] [phone] PCP - General Internal Medicine 07/11/24 documented as of this encounter
--- OUTSIDE RECORDS SUMMARY | 2025-03-08 11:19 | XMS_ITS | Clinical Summary ---
Author Organization [address] [place] [address] [place] [phone] Phone Care Team Providers Care Mold Finisher Name Role Phone Mick Flores MD Primary Care Provider [phone] Allergies Active Allergy Reactions Criticality Noted Date [...] knee total replacement with Dr. Cullen at [facility]. Despite her knee pain she still remains [...] Assessment & Plan: -compliant with CPAP Cardiomyopathy ([facility] V24, CMS/[facility] V28) 2020 Overview (11/07/2024): - See history [...] Encounters Date Type Department Care Team Description 03/07/2025 Telephone [facility] [address] [place] [phone] Yamilet Núñez MD 02/12/2025 9:40 AM EDT Consult [facility] [address] [place] [phone] Jerald Augustin NP Cardiomyopathy, unspecified type (CMS/HCC V24, CMS/HCC V28) (Primary Dx); Essential hypertension; Hyperlipidemia, unspecified hyperlipidemia type; Paroxysmal atrial fibrillation (CMS/HCC V24, CMS/HCC V28); Pre-op evaluation 02/12/2025 Telephone [facility] Cardiology [facility] - [address] [place] [phone] Provider, Not In System 12/19/2024 Telephone [facility] [address] [place] [phone] Yamilet Núñez MD from Last 3 Months [...] 08/22/2024 Cholesterol Screening (Lipid Panel) 08/22/2029 08/22/2024 Colorectal Cancer Screening: Colonoscopy Discontinued 03/01/2009, 12/07/2003 Zoster Vaccines Completed 06/07/2018, 03/01/2018 RSV Immunization [...] 08/22/2024 10:04 AM EDT Essential hypertension, benign EXTERNAL COLONOSCOPY REPORT Routine 03/01/2009 2:13 PM EDT from Last 3 Months or Most Recently Relevant to Health Maintenance Results * ECG 12 lead (02/12/2025 10:17 AM EDT) Ventricular Rate ECG 70 BPM GEMUSE Atrial Rate 70 BPM GEMUSE P-R Interval 176 ms GEMUSE QRS Duration 84 ms GEMUSE Q-T Interval 384 ms GEMUSE QTc 414 ms GEMUSE P Wave [place] 77 degrees GEMUSE R [place] -53 degrees GEMUSE T [place] 52 degrees GEMUSE ECG Interpretation Sinus rhythm with Premature atrial complexes Left anterior fascicular block When compared with ECG of 07-NOV-2024 08:18, Premature atrial complexes are now Present Confirmed by YAMILET NÚÑEZ ([id number]) on 03/02/2025 5:21:08 PM GEMUSE 02/12/2025 9:47 AM EDT 03/02/2025 5:21 PM EDT us Jerald Augustin LIME KILN OPERATOR ECG ORDERABLES Edited Result - Final COSME * (ABNORMAL) Lipid panel with reflex to direct LDL (08/22/2024 10:04 AM EDT) Cholesterol 205(H) 0 - 200 mg/dL LAB CHEMISTRY METHOD 08/22/2024 12:11 PM EDT [facility] Triglycerides 92 0 - 150 mg/dL LAB CHEMISTRY METHOD 08/22/2024 12:11 PM EDT [facility] HDL 76 >=40 mg/dL LAB CHEMISTRY METHOD 08/22/2024 12:11 PM EDT [facility] LDL Calculated 111(H) 0 - 100 mg/dL LAB CHEMISTRY METHOD 08/22/2024 12:11 PM EDT [facility] VLDL Cholesterol [place] 18.4 mg/dL LAB CHEMISTRY METHOD 08/22/2024 12:11 PM EDT [facility] Non HDL Chol. (LDL+VLDL) 129 <145 mg/dL LAB CHEMISTRY METHOD 08/22/2024 12:11 PM EDT [facility] Chol/HDL Ratio 2.7 0.0 - 4.4 LAB CHEMISTRY METHOD 08/22/2024 12:11 PM EDT [facility] Blood Venous blood specimen / Unknown Venipuncture / Unknown 08/22/2024 10:04 AM EDT 08/22/2024 11:07 AM EDT us Mick Flores MD LAB BLOOD ORDERABLES Final Res ult [facility] [address] [place] [address], [place] [phone] * Comprehensive metabolic panel (08/22/2024 10:04 AM [...] 12:11 PM [facility] Creatinine 0.82 0.50 - 1.10 [...] LAB CHEMISTRY METHOD 08/22/2024 12:11 PM EDT [facility] Alkaline Phosphatase 103 42 - 121 unit/L LAB CHEMISTRY METHOD 08/22/2024 12:11 PM EDT [facility] Total Protein 7.6 6.0 - 8.0 g/dL LAB CHEMISTRY METHOD 08/22/2024 12:11 PM EDT [facility] Albumin 4.1 3.2 - 5.0 g/dL LAB CHEMISTRY METHOD 08/22/2024 12:11 PM EDT [facility] Total Bilirubin 1.2 0.0 - 1.4 mg/dL LAB CHEMISTRY METHOD 08/22/2024 12:11 PM EDT [facility] Blood Venous blood specimen / Unknown Venipuncture / Unknown 08/22/2024 10:04 AM EDT 08/22/2024 11:07 AM EDT Mick Flores MD LAB BLOOD ORDERABLES Final Res ult [facility] [address] [place] [address], * External Colonoscopy Report (03/01/2009 2:13 PM EDT) Anatomical Region Laterality Modality Endoscopy Historical Provider GI~PROCEDURE ORDERABLES F inal Result from Last 3 Months or Most Recently Relevant to Health [place] [id number] MEDICARE Care Teams Mold Finisher Relationship Specialty Start Date End Date Mick Flores MD [address] [place] [address] PCP - General Internal Medicine 07/11/24
== END 2025-03-08 10:31 | disposition home or self-care (01) ==
LOC: HO.HOS 09:51
PROVIDERS: PCP Hospitalist; Visit Provider Physician Assistant
DX: M17.12 Unilateral primary osteoarthritis, left knee (principal); S93.401A Sprain of unspecified ligament of right ankle, initial encounter
CPT/HCPCS: 99024

== ENCOUNTER 2025-03-08 09:50 | Outpatient (REF) | payer MEDICARE, SELFPAY ==
[2025-03-08 11:17] LABS: MANUAL DIFF FLAG NO
[2025-03-08 11:59] LABS: Hematocrit 37.3 % (37.0-47.0); Hemoglobin 12.3 g/dl (12.0-16.0); Imm Gran Abs Auto 0.01 X10*3/uL (0.00-0.03); Imm Gran Pct Auto 0.2 % (0.0-0.4); Lymphocytes Absolute Auto 0.9 X10*3/uL (1.2-4.9); Mean Corpuscular HGB Conc 33.0 g/dl (31.0-35.0); Mean Corpuscular Hemoglobin 33.1 pg (27.0-33.0); Mean Corpuscular Volume 100.3 fL (80.0-98.0); NRBC Pct Auto 0.0 /100WBC (0.0-0.2); Platelet Count 165 X10*3/uL (160-400); Red Blood Count 3.72 X10*6/uL (4.20-5.50); White Blood Count 4.5 X10*3/uL (4.8-10.8)
[2025-03-08 12:00] LABS: NRBC Abs Auto 0.000 X10*3/uL (0.0-0.012)
[2025-03-08 12:35] LABS: Anion Gap 11 (12-20); Blood Urea Nitrogen 16 mg/dL (9-16); Calcium 9.1 mg/dL (8.4-10.2); Carbon Dioxide 24 mmol/L (22-29); Chloride 111 mmol/L (96-108); Estimated Glomerular Filt Rate > 60; Potassium 4.1 mmol/L (3.3-5.1); Sodium 142 mmol/L (135-145)
== END 2025-03-08 09:51 | disposition home or self-care (01) ==
LOC: HO.LAB 09:50
PROVIDERS: PCP Hospitalist; Visit Provider Physician Assistant
DX: Z01.818 Encounter for other preprocedural examination (principal); M17.12 Unilateral primary osteoarthritis, left knee; Z96.652 Presence of left artificial knee joint
CPT/HCPCS: 36415; 80048; 85025; 86850; 86900; 86901; 99212

== ENCOUNTER 2025-03-13 07:37 | Day surgery (SDC) | payer MEDICARE, SELFPAY ==
--- OUTSIDE RECORDS SUMMARY | 2025-01-18 14:25 | XMS_ITS | Patient Health Record ---
Author Organization [employer] [facility] Address [address] [place] [address] Care Team Providers Care Media Planner Name Role Phone TIFFANY PIERCE Primary Care [...] joints of right foot (M25.571) Referral Organization [facility] Referring Provider First Name ALLEN Referring Provider Last Name [facility] Referring Provider Speciality Internal edicine Referred Provider Specialty Orthopedic S urgery General Notes Pending completed no te. Once done fax to [phone].Roxann Latraya 01/03/2025 10:40:54 AM >, Please call the patient to schedule the appointment, Encounter created and SMS sent to the pt.Romario Charmain 01/04/2025 07:29:00 AM > Referral Priority Routine Reason Evaluation and manag ement Diagnosis 1 Pain in right ankle and joints of right foot (M25.571) Referral Organization [facility] Referring Provider First Name TIFFANY Referring Provider Last Name [facility] Referring Provider Speciality Internal edicine Referred Provider [...] Notes Problem Obesity due to excess calories (393460627) Other obesity due to excess calories (E66.09) Active confirmed Problem Essential hypertension (51174656) Essential (primary) hypertension (I10) Active confirmed Problem Cardiomyopathy (80083231) Cardiomyopathy, unspecified (I42.9) Active confirmed Problem Paroxysmal atrial fibrillation (659452365) Paroxysmal atrial fibrillation (I48.0) Active confirmed Vital Signs Heart Rate 75 /min 01/03/2025 Temperature 97.5 degrees Fahrenheit 01/03/2025 Oximetry 100 % 01/03/2025 Blood pressure diastolic 82 mm Hg 01/03/2025 Height 5'5'' in 01/03/2025 Blood pressure systolic 130 mm Hg 01/03/2025 Weight 197.1 lbs 01/03/2025 BMI 32.8 kg/m2 01/03/2025 Encounters Encounter Location Date Provider Diagnosis [address] [place] [address] 06/01/2024 ALLEN GUL Essential (primary) hypertension I10 ; Unspecified atrial fibrillation I48.91 ; Other obesity due to excess calories E66.09 and Dietary counseling and surveillance Z71.[address] [place] [address] 11/14/2024 ALLEN GUL Essential (primary) hypertension I10 ; Encounter for general adult medical examination without abnormal findings Z00.00 ; Unspecified atrial fibrillation I48.91 ; Other obesity due to excess calories E66.09 ; Paroxysmal atrial fibrillation I48.0 and Cardiomyopathy, unspecified I42.[address] [place] [address] 01/03/2025 ALLEN GUL Pain in right ankle and joints of right foot M25.[address] [place] [address] 11/27/2024 ALLEN L [address] [place] [address] 11/30/[address] [place] [address] 01/04/[address] [place] [address] 01/16/2025 TIFFANY PIERCE Assessments Encounter Date Diagnosis (ICD Code) Assessment Notes Treatment Notes Treatment Clinical Notes Section Notes 06/01/2024 Essential (primary) hypertension (ICD-10 - I10) 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 Cullen. She takes amoxicillin prophylactically before dental work She is up-to-date on age-specific screening. Her sister Jessica Wallis is her healthcare proxy and her phone number is [phone] Screening blood work before next appointment. 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 Cullen. She takes amoxicillin prophylactically before dental work She is up-to-date on age-specific screening. Her sister Jessica Wallis is her healthcare proxy and her phone number is [phone] Screening blood work before next appointment. 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] with hypertension, 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 Cullen. She takes amoxicillin prophylactically before dental work She is up-to-date on age-specific screening. Her sister Jessica Wallis is her healthcare proxy and her phone number is [phone] Screening blood work before next appointment. 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 Cullen. She takes amoxicillin prophylactically before dental work She is up-to-date on age-specific screening. Her sister Jessica Wallis is her healthcare proxy and her phone number is [phone] Screening blood work before next appointment. 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, paroxysmal atrial fibrillation and status post ablation time 2 and currently on Eliquis, nonischemic cardiomyopathy most likely secondary to tachycardia and EF is within reasonable limits and she goes to and she sees [facility] cardiology, melanoma right lower leg [...] and she goes to and she sees [facility] cardiology, melanoma right lower leg [...] and she goes to and she sees [facility] cardiology, melanoma right lower leg [...] Future Test Test Name Order Date Albumin/Creatinine Ratio,[id number] Lipid Panel-[id number] 06/01/2024 Comp. Metabolic Panel [id number] 2024 Next Appt Details Provider Name:TIFFANY PIERCE , 03/05/2025 02:30:00 PM, [address] [place] [address], [phone], Provider Name:TIFFANY PIERCE , 05/18/2025 08:30:00 AM, [address] [place] [address], [phone], Insurance Providers Payer Name Payer Address Payer Phone Subscriber Number Group Number Insured Name Patient Relationship to Insured Coverage Start Date Coverage End Date Medicare [address] [place] [phone] [id number] Sylvia Wallis Self - patient is the insured 3 Medical (General) History Medical History History ICD Code hypertension atrial fibrillation and she sees [facility] cardiology and status post ablation time 2 Melanoma right leg and statu s post Mohs procedure and she goes to [place] dermat[facility] Remote injury to the jaw and takes Flexe ril as needed Surgical History Surgery Date(Month/Year) right total knee replacement at [facility] Wrist surgery Dr Laughlin after fall hit by a dog appendectomy
--- OUTSIDE RECORDS SUMMARY | 2025-01-18 14:26 | XMS_ITS | Clinical Summary ---
Author Organization [address] [place] [address] [place] [phone] Phone Care Team Providers Care Route Delivery Clerk Name Role Phone Mick Flores MD Primary Care Provider [phone] Allergies Active Allergy Reactions Criticality Noted Date [...] Type Department Care Team Description 12/19/2024 Telephone [facility] [address] [facility] [address] [place] [phone] Yamilet Núñez MD 11/07/2024 8:10 AM EDT Office Visit [facility] [address] [place] [phone] Jerald Augustin NP Cardiomyopathy, unspecified type (CMS/HCC V24, CMS/HCC V28) (Primary Dx); Essential hypertension; Paroxysmal atrial fibrillation (CMS/HCC V24, CMS/HCC V28); Hyperlipidemia, unspecified hyperlipidemia type 10/18/2024 Telephone [facility] [address] [place] [address] Yamilet Núñez MD from Last 3 Months Family History Medical History Relation Name Comments Other: unknown heart condition Brother Ronald Other: afib Sister 1 Jesisca Other: pacemaker Sister 1 Jessica Other: pacemaker [...] Info) Description 02/12/2025 9:40 AM EDT Consult [facility] [address] [facility] [address] [place] [address] Jerald Augustin NP [address] [place] [address] [place] [address] Health Maintenance Due Date Last Done Comments DTaP,Tdap,and Td Vaccines (1 - Tdap) 08/09/1966 Pneumococcal Vaccine: 50+ Years (1 of 1 - PCV) 08/09/1997 Falls Risk Assessment 04/26/2022 Hepatitis C Screening 04/26/2022 Medicare Annual Wellness Visit 04/26/2022 Osteoporosis Screening (Bone Density Screening) 04/26/2022 Social Influencers of Health Screening 04/26/2022 Depression Screening 05/17/2024 COVID-19 Vaccine ( season) 2025 04/17/2024, 03/03/2023, 02/26/2022, Additional history exists Influenza [...] GEMUSE QTc 423 ms GEMUSE P [facility] -7 degrees GEMUSE R [facility] -53 degrees GEMUSE T [facility] 54 degrees GEMUSE ECG Interpretation Normal sinus [...] LAB CHEMISTRY METHOD 08/22/2024 12:11 PM EDT [facility] Triglycerides 92 0 - 150 mg/dL LAB CHEMISTRY METHOD 08/22/2024 12:11 PM EDT [facility] HDL 76 >=40 mg/dL LAB CHEMISTRY METHOD 08/22/2024 12:11 PM EDT [facility] LDL Calculated 111(H) 0 - 100 mg/dL LAB CHEMISTRY METHOD 08/22/2024 12:11 PM EDT [facility] VLDL Cholesterol Byron 18.4 mg/dL LAB CHEMISTRY METHOD 08/22/2024 12:11 PM EDT [facility] Non HDL Chol. (LDL+VLDL) 129 <145 mg/dL LAB CHEMISTRY METHOD 08/22/2024 12:11 PM EDT [facility] Chol/HDL Ratio 2.7 0.0 - 4.4 LAB CHEMISTRY METHOD 08/22/2024 12:11 PM EDT [facility] Blood Venous blood specimen / Unknown Venipuncture / Unknown 08/22/2024 10:04 AM EDT 08/22/2024 11:07 AM EDT us Mick Flores MD LAB BLOOD ORDERABLES Final Res ult [facility] [address] [place] [address], [place] [phone] * Comprehensive metabolic panel (08/22/2024 10:04 AM EDT) Sodium 138 133 - 145 mmol/L LAB CHEMISTRY METHOD 08/22/2024 12:11 PM [facility] Potassium 3.7 3.5 - 5.5 mmol/L LAB CHEMISTRY METHOD 08/22/2024 12:11 PM [facility] Chloride 104 96 - 110 mmol/L LAB CHEMISTRY METHOD 08/22/2024 12:11 PM [facility] CO2 29 21 - 32 mmol/L LAB CHEMISTRY METHOD 08/22/2024 12:11 PM [facility] Anion Gap 5 3 - 11 LAB CHEMISTRY METHOD 08/22/2024 12:11 PM [facility] Glucose 93 70 - 100 mg/dL LAB CHEMISTRY METHOD 08/22/2024 12:11 PM [facility] BUN 18 5 - 25 mg/dL LAB CHEMISTRY METHOD 08/22/2024 12:11 PM [facility] Creatinine 0.82 0.50 - 1.10 mg/dL LAB CHEMISTRY METHOD 08/22/2024 12:11 PM [facility] eGFR 74 >=60 mL/min/1. 73m2 LAB CHEMISTRY METHOD 08/22/2024 12:11 PM [facility] Comment:Calculation based on the Chronic Kidney Disease Epidemiology Collaboration (CKD-EPI) equation refit without adjustment for race. BUN/Creatinine Ratio 22.0 LAB CHEMISTRY METHOD 08/22/2024 12:11 PM [facility] Calcium 9.8 8.5 - 10.5 mg/dL LAB CHEMISTRY METHOD 08/22/2024 12:11 PM [facility] AST (SGOT) 22 10 - 42 unit/L LAB CHEMISTRY METHOD 08/22/2024 12:11 PM [facility] ALT (SGPT) 47 10 - 60 unit/L LAB CHEMISTRY METHOD 08/22/2024 12:11 PM EDT [facility] Alkaline Phosphatase 103 42 - 121 unit/L LAB CHEMISTRY METHOD 08/22/2024 12:11 PM EDT [facility] Total Protein 7.6 6.0 - 8.0 g/dL LAB CHEMISTRY METHOD 08/22/2024 12:11 PM EDT [facility] Albumin 4.1 3.2 - 5.0 g/dL LAB CHEMISTRY METHOD 08/22/2024 12:11 PM EDT [facility] Total Bilirubin 1.2 0.0 - 1.4 mg/dL LAB CHEMISTRY METHOD 08/22/2024 12:11 PM EDT [facility] Blood Venous blood specimen / Unknown Venipuncture / Unknown 08/22/2024 10:04 AM EDT 08/22/2024 11:07 AM EDT Mick Flores MD LAB BLOOD ORDERABLES Final Res ult [facility] [address] [place] [address], from Last 3 Months or Most Recently Relevant to [place] [id number] MEDICARE Care Teams Route Delivery Clerk Relationship Specialty Start Date End Date Mick Flores MD [address] [place] [address] PCP - General Internal Medicine 07/11/24
--- NOTE | 2025-02-13 09:59 | HO.ANESPROP2 ---
Documented by User: Kat Guajardo NP 03/06/25 14:38 HPI - Anesthesia Eval Consult details Narrative: 79 yr old female for left total knee replacement scheduled 03/13/25, seen in PAT 02/13/25. No recent illness No CP/SOB with light walking, aims for 6,000 steps per day, limited stair climbing due to ankle & knee pain Moderate right ankle sprain 2/2 [place] Dec 2024, better per pt, no longer wearing brace Optimized by cardiology 02/12/25 clearance visit (follows with PVC) Medically cleared by PCP at 02/15/25 visit. ANIRUDH: on CPAP Afib: on eliquis, s/p ablations x2, asymptomatic, no dizziness or palpitations. Non-ischemic cardiomyopathy- likely tachycardia mediate with recovery of EF PMFSH Active Problems Active Problems: All Active Problems (Updated 02/12/25 @ 11:14 by Lucinda Sanchez RN) Right ankle sprain (Acute) Avulsion fracture of right ankle (Acute) Ankle pain, right (Acute) Right foot pain (Acute) Osteoarthritis of left knee (Acute) Past Medical History Medical History Melanoma Heartburn Hyperlipidemia HTN (hypertension) Cardiomyopathy ANIRUDH (obstructive sleep apnea) Atrial fibrillation Osteoarthritis Surgical History Surgical History Hx of bilateral cataract extraction H/O colonoscopy History of cardiac ablation for atrial fibrillation History of elbow replacement History of bunionectomy of right great toe History of total right knee replacement Social History Social History Are you a primary rn progressive care to a significant other at home: No Do you presently have visiting nurse or other home services: No Patient Tobacco Use Status: Never used Tobacco Use of substances other than those prescribed or required for medical reasons: No Have you been hit, kicked, punched, or otherwise hurt by someone within the past year? If so, by whom?: No Spiritual Healthcare Practices: no Mu-Ism Healthcare Practices: no Cultural Healthcare Practices: no Are you DNR?: Yes Advance Directives on File: No FDLMP: n/a Meds Allergies Allergy/AdvReac Type Severity Reaction Status Date / Time latex Allergy Intermediate Rash Verified 03/08/25 10:05 Home Medications ?Medication ?Instructions ?Recorded ?Confirmed ?Last Taken ?Type apixaban 5 mg tablet (Eliquis) 5 mg PO BID 05/04/24 03/08/25 Unknown History lisinopril 5 mg tablet 5 mg PO QAM 05/04/24 03/08/25 Unknown History metoprolol succinate 25 mg 25 mg PO QAM 05/04/24 03/08/25 Unknown History tablet,extended release 24 hr Exam Pertinent Lab Results Pertinent Lab Results: Laboratory Tests 02/13/25 02/13/25 11:20 16:15 WBC 3.9 L RBC 3.71 L Hgb 12.3 Hct 37.3 Plt Count 164 Sodium 142 Potassium 4.3 Chloride 108 Carbon Dioxide 25 BUN 22 H Creatinine 0.77 Narrative Narrative: EKG 02/12/25 Sinus rhythm with PACs Left anterior fasicular block Abnormal ECG PACs are now present when compared with 11/07/24 EKG ECHO 08/2022 Normal left ventricular size, wall thickness, systolic function. Normal regional wall motion. Left ventricular EF 55-60%. Normal left ventricular diastolic function. No hemodynamically significant valve disease. Compared to echo study from 07/22/18 there does not appear to be any significant change. Airway Mallampati Class: II TM Dist: >3cm Neck ROM: Full Loose/Missing/Broken Teeth: No Heart: RRR Lungs: CTAB Documented by User: Jie Aguirre MD 03/13/25 08:28 [facility] Past Medical History Medical History Melanoma Heartburn Hyperlipidemia HTN (hypertension) Cardiomyopathy ANIRUDH (obstructive sleep apnea) Atrial fibrillation Osteoarthritis Family History Family history of problems with anesthesia: No Surgical History Surgical History Hx of bilateral cataract extraction H/O colonoscopy History of cardiac ablation for atrial fibrillation History of elbow replacement History of bunionectomy of right great toe History of total right knee replacement History of Problems with Anesthesia: No Social History Social History Are you a primary rn progressive care to a significant other at home: No Do you presently have visiting nurse or other home services: No Patient Tobacco Use Status: Never used Tobacco Use of substances other than those prescribed or required for medical reasons: No Have you been hit, kicked, punched, or otherwise hurt by someone within the past year? If so, by whom?: No Spiritual Healthcare Practices: no Mu-Ism Healthcare Practices: no Cultural Healthcare Practices: no Are you DNR?: Yes Advance Directives on File: No FDLMP: n/a Meds Allergies Allergy/AdvReac Type Severity Reaction Status Date / Time latex Allergy Intermediate Rash Verified 03/08/25 10:05 Home Medications ?Medication ?Instructions ?Recorded ?Confirmed ?Last Taken ?Type apixaban 5 mg tablet (Eliquis) 5 mg PO BID 05/04/24 03/08/25 Unknown History lisinopril 5 mg tablet 5 mg PO QAM 05/04/24 03/08/25 Unknown History metoprolol succinate 25 mg 25 mg PO QAM 05/04/24 03/08/25 Unknown History tablet,extended release 24 hr Assessment and Plan Assessment Anesthesia Assessment: Anesthesia Plan Discussed and Chart Reviewed Final Anesthetic Review Family History of Problems with Anesthesia: No History of Problems with Anesthesia: No NPO: Yes ASA Class: III Final Preanesthetic Review: No Changes in Pt Med Stat, Meds/Allgs Chart Reviewed, Consent Obtained/Reviewed and Anes Risks/Benef Reviewed Patient Risk: Intermediate Procedure Risk: Intermediate Anesthetic Plan Anesthetic Plan: GA and Agree w/ Assess. and Plan Disposition: Standard PACU
[2025-02-13 10:17] VITALS: BP 128/60; PULSE 65; RESP 20; O2SAT 97; BMI 34.0
[2025-02-13 11:55] LABS: Hematocrit 37.3 % (37.0-47.0); Hemoglobin 12.3 g/dl (12.0-16.0); Mean Corpuscular HGB Conc 33.0 g/dl (31.0-35.0); Mean Corpuscular Hemoglobin 33.2 pg (27.0-33.0); Mean Corpuscular Volume 100.5 fL (80.0-98.0); NRBC Abs Auto 0.000 X10*3/uL (0.0-0.012); NRBC Pct Auto 0.0 /100WBC (0.0-0.2); Platelet Count 164 X10*3/uL (160-400); Red Blood Count 3.71 X10*6/uL (4.20-5.50); White Blood Count 3.9 X10*3/uL (4.8-10.8)
[2025-02-13 12:45] LABS: MRSA Nasal PCR NEGATIVE (Negative); SA Nasal PCR NEGATIVE (Negative)
[2025-02-13 17:35] LABS: Anion Gap 13 (12-20); Blood Urea Nitrogen 22 mg/dL (9-16); Calcium 9.8 mg/dL (8.4-10.2); Carbon Dioxide 25 mmol/L (22-29); Chloride 108 mmol/L (96-108); Creatinine Clr Calc Pharmacy 66.4; Estimated Glomerular Filt Rate > 60; Potassium 4.3 mmol/L (3.3-5.1); Sodium 142 mmol/L (135-145)
[2025-03-13] VITALS (11 sets, daily range): BP systolic 91–128; BP diastolic 37–60; PULSE 53–68; RESP 10–18; TEMP 36.1–37; O2SAT 92–100; BMI 32.5; BMI 35.3
--- NOTE | ~2025-03-13 | XR_ITS ---
EXAMINATION: XR KNEE, LEFT CLINICAL INFORMATION: LT TKA COMPARISON: May 04, 2024 TECHNIQUE: AP and lateral views of the left knee. FINDINGS: Since prior examination, total knee arthroplasty has been performed. There is anatomic alignment. There is no abnormal lucency at bone metal interfaces. No fracture is visualized. Conclusion hayley are in place anteriorly. There is fluid and gas within the joint capsule, Hoffa's fat pad, and superficial soft tissues anteriorly. XR/XR knee LT 2V IMPRESSION: Normal left knee. Electronically signed by: Juan M Bales MD 03/13/2025 12:56 PM EDT
[2025-03-13] MEDS: Lactated Ringers 1,000 ML 100 ML IVCONT ×3 (09:16→23:34)
--- NOTE | 2025-03-13 10:13 | MHC.SHP ---
Pre-Procedural Eval Section A - 24 Hr Update-Section A only Date of Service: 03/13/25 The patient is an INPATIENT: No Changes since office visit: No Cold of Flu in the past 2 weeks, No New Medical Problems, No Changes in Medication and No Patient answered all questions The patient has been examined within 24 hours of the surgical procedure. The History & Physical has been completed within 30 days and I have reviewed it.: Yes Section B - Complete if H&P > 30 days Chief Complaint: Unilateral primary osteoarthritis, left knee Allergies: Allergies Allergy/AdvReac Type Severity Reaction Status Date / Time latex Allergy Intermediate Rash Verified 03/08/25 10:05 Plan I have reviewed the history and physical and performed a pertinent physical examination on my patient. No changes have occurred unless specified. Time Spent With Patient Time: Total time managing care of this patient today ____ minutes.
--- NOTE | 2025-03-13 12:15 | P.BOP_ITS ---
Brief Operative Note Date of Service: 03/13/25 Pre-op diagnosis: Left knee OA Post-op diagnosis: same Procedure: Left TKA Implants: [place] Triathlon cemented posterior stabilized ps/32a Surgeon: Don Cullen MD Anesthesia: regional and spinal Was an Cylinder Tester used for this Procedure?: Yes Cylinder Tester: Al Pederson Estimated blood loss (mL): 25 Tourniquet time (min): 80 IV fluids (mL): 1,000 Pathology: other Condition: stable Disposition: PACU
--- NOTE | 2025-03-13 12:20 | W.PM.OPN ---
Operative Note Operative Note Date of Service: 03/13/25 Narrative: Date of Service: 03/13/25 Pre-op diagnosis: Left knee OA Post-op diagnosis: same Procedure: Left TKA Implants: Monty Triathlon cemented posterior stabilized ps/32a Surgeon: Don Cullen MD Anesthesia: regional and spinal Was an Phlebotomy Coordinator used for this Procedure?: Yes Phlebotomy Coordinator: Al Pederson Estimated blood loss (mL): 25 Tourniquet time (min): 80 IV fluids (mL): 1,000 Pathology: other Condition: stable Disposition: PACU Procedure in detail: The patient was brought to the operating room and prepped and draped in standard sterile fashion. A time-out was called to identify proper site proper procedure proper surgeon and IV antibiotics were administered. 1 g of IV tranexamic acid was administered. There was a 5deg flexion contracture. I began by making a midline incision to the retinaculum and performed a medial parapatellar arthrotomy. The patella was translated laterally and the knee was flexed up. There was medial compartment eburnation. I performed a small medial peel and resected the infrapatellar fat pad. Malinda's line was then used to drill my intramedullary femoral guide and my distal femur cut of 12 mm was made in 5 degrees of valgus while protecting the soft tissues. I then measured a #4 femur and placed my cutting guide and made my anterior posterior and chamfer cuts protecting the soft tissues at all times. I then made my box but removing the PCL. Once I was satisfied with my cuts I turned my attention to the tibia. I removed the meniscus medially and laterally and , using an external cutting guide, in line with the tibial crest and the third ray, I made my distal tibial cut in 0 deg slope of while protecting the posterior soft tissues at all times. An extension block was used to confirm appropriate amount of bony resection. I then sized a #4 tibia and once I was satisfied that there was complete tibial coverage I placed my trial and with the trial femur in place took the knee through range of motion. I was satisfied with the extension, flexion and balance at 0, 30 and 90 degrees. I then turned my attention to the patella where I removed 1 cm from the undersurface of the patella and then trialed a 32a patellar button. Again the knee was taken through range of motion I was satisfied with the tracking. I then returned to the tibia and prepared the tibia. A femoral bone plug was placed and the knee was irrigated copiously. I mixed 2 bags of Palacos bone cement on the back table using 3rd gen cementation technique. I then cemented the patella, tibia and femur in standard fashion while applying axial compression and with a clamp on the patella. Once the cement was dry I removed all excess cement. I trialed different size inserts until I selected a #9 insert. The final insert was placed and a the knee was irrigated copiously and local TXA was administered. The knee was then closed with a running Quill suture, a 3 0 Vicryl and hayley on the skin. Patient was then placed in sterile dressing and brought to recovery room in stable condition there were no known complications.
--- NOTE | 2025-03-13 14:48 | PHA.MEDREC ---
Pharmacy Consult ? Medication Reconciliation Pharmacy has completed the medication reconciliation.Med rec complete, done by nursing, changed lisinopril to 10 mg as it had recently been increased
--- NOTE | 2025-03-13 16:50 | PC.NURSE ---
Pt instructed on use of incentive spiromter using up to 1000 ml . BLE still numb from block , will attempt out of bed once appropriate , Pt did see pt at bedside will re visit in the AM
--- NOTE | 2025-03-13 17:51 | HO.PM.IMCN ---
History of Present Illness Data of Consult Service Date: 03/13/25 Primary Care Provider: Jessica Flores MD [facility] Reason for consult: Med management, CAD, CHF, paroxysmal atrial fibrillation on Eliquis Patient is a 79-year-old female, with a background history of CAD, nonischemic CHF recovered EF, paroxysmal atrial fibrillation s/p ablation x2 on apixaban, HTN, HLD, osteoarthritis, presenting to hospital for elective left TKA for left knee osteoarthritis. Hospitalist service consulted for med management in the setting of patient's background medical history. Most recent preoperative clearance completed by Anesthesiology 02/13/2025. No chest pain, no shortness of breath, no palpitations, no dizziness, no diaphoresis. Able to tolerate METS > 4 without complaint. Evaluated by cardiology 02/12/2025 for clearance visit Medically cleared by PCP 02/15/2025. Left total knee arthroscopy completed without complication 03/13/2025. Estimated blood loss intraoperatively 25 mL, with IV fluid 1000 mL administered. No new complaints postoperatively. Blood pressure 127/58, with pulse 60 bpm. 100% room air Review of Systems Review of Systems: Yes all other systems are reviewed and are negative [facility] Medical History (Updated 03/13/25 @ 17:57 by Romero Bates MD) Melanoma Heartburn Hyperlipidemia HTN (hypertension) Cardiomyopathy ANIRUDH (obstructive sleep apnea) Atrial fibrillation Osteoarthritis Surgical History Hx of appendectomy Hx of bilateral cataract extraction H/O colonoscopy History of cardiac ablation for atrial fibrillation History of elbow replacement History of bunionectomy of right great toe History of total right knee replacement Social History Household Members: None Housing: House Are you a primary child caregiver to a significant other at home: No Do you presently have visiting nurse or other home services: No Patient Tobacco Use Status: Never used Tobacco Smoked in Last 30 Days: No Patient Interested in Nicotine Replacement: No Patient Given Instructions on How to Stop Smoking: No Second Hand Smoke Exposure: No Use of substances other than those prescribed or required for medical reasons: No Currently Displaying Signs/Symptoms of Drug Intoxication Withdrawal: No Have you been hit, kicked, punched, or otherwise hurt by someone within the past year? If so, by whom?: No Do you feel safe in your current relationship?: No Current Relationship Is there a partner from a previous relationship who is making you feel unsafe now?: No Are you made to feel afraid or neglected: No Spiritual Healthcare Practices: no Jehovah'S Witness Healthcare Practices: no Cultural Healthcare Practices: no Are you DNR?: Yes Advance Directives on File: No Do you have a plan to hurt others: No Plan Recently lost weight without trying: No Eating poorly because of decreased appetite: No Nutrition Risks: No Nutritional Risk Patient : No FDLMP: n/a : No Poor oral hygiene: No Meds Allergies Allergy/AdvReac Type Severity Reaction Status Date / Time latex Allergy Intermediate Rash Verified 03/08/25 10:05 Active Medications: Current Medications Acetaminophen (Acetaminophen 325 Mg Tablet) 650 mg PO Q6H PRN PRN Reason: Pain, Mild 1-3,fever,headache Apixaban (Apixaban 5 Mg Tablet) 5 mg PO BID [facility] Celecoxib (Celecoxib 200 Mg Capsule) 200 mg PO BID [facility] Docusate Sodium (Docusate Sodium 100 Mg Capsule) 100 mg PO BID [facility] Enoxaparin Sodium (Enoxaparin Sodium 40 Mg/0.4 Ml Syringe) 40 mg SUBCUT ONCE ONE Stop: 03/14/25 11:01 Hydromorphone HCl (Hydromorphone Hcl 0.5 Mg/0.5 Ml Syringe) 0.25 mg IVPUSH Q4H PRN; Protocol PRN Reason: Pain, Severe (Pain Scale 7-10) Lactated Ringer's (Lr) 1,000 mls @ 100 mls/hr IVCONT .Q10H [facility] Stop: 03/14/25 08:00 Last Admin: 03/13/25 15:39 Dose: 100 mls/hr Magnesium Hydroxide (Milk Of Magnesia 30 Ml Oral.Susp) 30 ml PO DAILY PRN PRN Reason: Constipation Metoprolol Succinate (Metoprolol Succinate Er 25 Mg Tab.Er.24h) 25 mg PO DAILY [facility]; Protocol Last Admin: 03/13/25 15:41 Dose: Not Given Ondansetron HCl (Ondansetron Hcl 4 Mg/2 Ml Vial) 4 mg IVPUSH Q8H PRN PRN Reason: Nausea and Vomiting Oxycodone HCl (Oxycodone Hcl Immed Release 5 Mg Tablet) 5 mg PO Q4H PRN PRN Reason: Pain, Moderate(Pain Scale 4-6) Sodium Chloride (0.9 % Sodium Chloride Flush 3 Ml Syringe) 3 ml IVFLUSH QSHIFT XIMENA Last Admin: 03/13/25 16:11 Dose: Not Given Home Medications ?Medication ?Instructions ?Recorded ?Confirmed ?Last Taken ?Type apixaban 5 mg tablet (Eliquis) 5 mg PO BID 05/04/24 03/08/25 03/10/25 History metoprolol succinate 25 mg 25 mg PO QAM 05/04/24 03/08/25 03/13/25 History tablet,extended release 24 hr lisinopril 10 mg tablet 10 mg PO DAILY 03/13/25 03/13/25 Unknown History Physical Exam Vital Signs and Narrative: Vital Signs: Last Vital Signs Temp 98.6 F 03/13/25 15:27 Pulse 60 03/13/25 15:27 Resp 18 03/13/25 15:27 BP 127/58 L 03/13/25 15:27 Pulse Ox 100 03/13/25 15:27 O2 Del Method Room Air 03/13/25 15:27 BMI result Body Mass Index 35.3 General: A&O x3, oriented to time place person and situation, comfortable, no pain Cardiac: S1, S2 auscultated with no S3/4, no MRG. Well perfused. Respiratory: Normal breath sounds auscultated throughout all lung zones, without wheezing, rales. Normal rate. GI/ : No abdominal pain on palpation, no masses or distentions. MSK: Normal ambulation without pain at bony prominences or musculature Neurological: Normal neurological examination on overview, without obvious CN II-XII abnormalities. Results Labs 02/13/25 11:20 02/13/25 16:15 Imaging Radiologist's Impressions: Impressions Knee X-Ray 03/13/25 12:29 IMPRESSION: Normal left knee. Electronically signed by: Juan M Bales MD 03/13/2025 12:56 PM EDT Assessment and Plan (1) Osteoarthritis of left knee: Qualifiers: Osteoarthritis type: primary Qualified Code(s): M17.12 - Unilateral primary osteoarthritis, left knee Status: Acute (2) HTN (hypertension): Qualifiers: Hypertension type: primary hypertension Qualified Code(s): I10 - Essential (primary) hypertension Status: Acute (3) Cardiomyopathy: Qualifiers: Cardiomyopathy type: other Qualified Code(s): I42.8 - Other cardiomyopathies Status: Acute (4) Atrial fibrillation: Qualifiers: Atrial fibrillation type: paroxysmal Qualified Code(s): I48.0 - Paroxysmal atrial fibrillation Status: Acute (5) ANIRUDH (obstructive sleep apnea): Status: Acute (6) Hyperlipidemia: Qualifiers: Hyperlipidemia type: mixed hyperlipidemia Qualified Code(s): E78.2 - Mixed hyperlipidemia Status: Acute Plan Patient is a 79-year-old female, with a background history of CAD, nonischemic CHF recovered EF, paroxysmal atrial fibrillation s/p ablation x2 on apixaban, HTN, HLD, osteoarthritis, presenting to hospital for elective left TKA for left knee osteoarthritis. Hospitalist service consulted for med management in the setting of patient's background medical history. Left TKA Left knee osteoarthritis Operative intervention completed 03/13 without complication. 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 She now has recovered ejection fraction. Most recent ECHO 08/2022, revealing LVEF 55-60%, with normal LV and RV function, without valvulopathy. She has been cleared by Cardiology in the outpatient setting. PLAN - continue administration of metoprolol 25 mg extended release - no need to monitor on telemetry Paroxysmal Atrial Fibrillation History of paroxysmal atrial fibrillation, status post two ablations, with [id number] score indicating high thromboembolic risk. The patient is maintained on apixaban at home for stroke prevention. Apixaban was held for 48 hours prior to surgery. PLAN - Resume apixaban 5 mg BID PO?24?48 hours postoperatively, once adequate hemostasis is confirmed and there is no evidence of active bleeding. - Continue metoprolol 25 mg extended release daily for rate control. - No telemetry monitoring required at this time given stable rhythm and absence of recent arrhythmia. - Monitor for signs of bleeding or recurrent atrial fibrillation postoperatively. HTN PLAN - continue lisinopril 5 mg OD p.o. HLD - hold statin in the interim, and can be resumed within 3 days of surgical intervention CAD Low risk of postoperative ACS. Monitor for postoperative chest pain, dizziness, diaphoresis, dyspnea. Thank for allowing us to contribute to this patient's care. We will sign off the patient's case. Please reach out to us with any questions or concerns.
[2025-03-13] MEDS: oxyCODONE HCl Immed Release 5 MG TABLET PO (20:32)
--- NOTE | 2025-03-13 21:38 | PM.DS ---
DS: Providers Provider Date of Service: 03/13/25 Date of discharge: 03/14/25 Primary care physician: Jessica Flores MD Consults: 03/13/25 14:14 Consult to Case Management Routine Comment: lt tka HOME VS REHAB Consult to Hospitalist Routine Comment: Consulting Provider: [facility] Hospitalists Reason For Exam: CAD. MED MGMNT DS: Diagnosis Discharge Diagnosis (1) History of total left knee replacement: Status: Acute DS: Summary Hospital Course Hospital Course: The patient underwent a successful left total knee arthroplasty on 03/13/[address] Cullen, was transferred to PACU and then to the floor to recover. During their stay, their vitals were stable, afebrile at 97.4. Labs were unremarkable, H/H 11.1/33.2 . POD 1 she was started on Lovenox 40mg sub Q x 1 dose for DVT ppx, then resumed her home dose of Eliquis. While admitted, she also received Physical Therapy services twice a day. Physical therapy should include gait training, ROM to tolerance and quad strength. sHe is WBAT. Prior to discharge, her dressing was clean dry and intact. She will remove the Krishna wrap on postop day 2. The Aquacel dressing should remain intact and dry at all times. Any concerns with the dressing, please contact orthopedic office. No showering. The plan is to be discharged home w vna Time Attestation Discharge Coordination Time (in mins): 30 Quality: Safe Use of Opioids Does Pt have an Active Cancer Diagnosis on the Problem List?: No Quality: Stroke Does the patient have a stroke diagnosis?: No Physical Exam Vital Signs: Vital Signs: Last Vital Signs Temp 98.0 F 03/13/25 19:33 Pulse 68 03/13/25 19:33 Resp 18 03/13/25 19:33 BP 102/53 L 03/13/25 19:33 Pulse Ox 97 03/13/25 19:33 O2 Del Method Room Air 03/13/25 19:33 BMI result Body Mass Index 35.3 DS: Data Data Completed and Pending Pending studies at discharge: Pending at discharge 03/13/25 11:17 Surgical [PTH] Routine Discharge Plan Discharge Patient Disposition: Home Health Service Referrals: Al Pederson PA-C [Physician Electronic Assembler Group Leader, Orthopedics] - 1 Week Referral Note: 03/29/25 10:15 [facility] Orthopedic Surgeons Al Pederson, JW Discharge Medications: New docusate sodium 100 mg Capsule 100 mg PO BID 7 Days Qty: 14 0RF celecoxib 200 mg Capsule 200 mg PO BID 30 Days Qty: 60 0RF acetaminophen 325 mg Tablet 650 mg PO Q6H PRN (Reason: Pain, Mild 1-3,Fever,Headache) 30 Days Qty: 240 0RF tramadol 50 mg tablet 50 mg PO Q6H PRN (Reason: pain) 7 Days Qty: 28 0RF Continued (DME) Folding Front Wheeled walker See Rx Instructions .ROUTE .MEDSUPPLY Qty: 1 0RF Rx Instructions: Duration: 99 days lisinopril 10 mg Tablet 10 mg PO DAILY Eliquis 5 mg tablet 5 mg PO BID metoprolol succinate 25 mg tablet extended release 24 hr 25 mg PO QAM Discharge Orders: Discharge Order (Routine); Ordered 03/14/25 Ordered By: Al Pederson Diet: Regular diet Activity on Discharge: Use cane or walker Activity Restrictions/Additional Instructions: Physical Therapy for ROM 0-120, quad strength, gait training. Use walker for ambulation Limit stair climbing No shower or tub bath No driving for 6 weeks Continue anticoagulant Keep Aquacel dressing clean, dry and intact. Follow up with orthopedics in 2 weeks -Bandage/Incision Site Care: -Ice 20mins at a time -Make sure you use a towel or cloth on your skin as a barrier -DO NOT remove the bandage -Keep Bandage clean, dry and intact -Do not get the bandage wet: -No tub bath, pools or hot tubs -If there are any concerns regarding the bandage please call orthopedics: [phone] -Knee Precautions: -Refrain from putting pillows under the knee -Keep leg straight while resting the knee -Avoid low chairs and deep couches -Use supportive shoes with nonslip soles -Physical Therapy: -Patient is WBAT with the use of a walker -Range of Motion: 0-120 degrees. -Strengthening: Quadriceps and hip muscles -Walking: Gait training and gradually increasing distance with walker -Ankle pumps and incentive spirometry to limit the risk of blood clot -Diet: -Resume regular diet as tolerated. -Drink plenty of fluids and eat a high-fiber foods to avoid constipation -This is a common side effect of pain medication) -Take stool softeners as prescribed -Blood Clot Prevention: -Resume home dose of eliquis -Perform ankle pumps and walk frequently with the walker and assistance if needed -Report calf pain, swelling, or shortness of breath immediately Print Language: Chilean
--- NOTE | 2025-03-13 21:40 | W.MHC.F2F ---
Service Date Service Date: 03/13/25 Encounter Date of encounter: 03/13/25 Reasons for Services Signs and symptoms assessed: Weakness, poor balance, poor gait mechanics Reason for physical therapy: home safety and mobility, therapeutic exercises, restore joint function, gait/transfer training, ADL training and energy conservation Reason for occupational therapy: home safety and mobility, therapeutic exercises, restore joint function, gait/transfer training, ADL training and energy conservation Overseeing Care: Don Cullen Homebound: Leaving the home is medically contraindicated at this time without the asist of a device and/or another person due th the listed conditions above and below. Reason homebound: unsteady gait / fall risk, pain with ambulation, poor balance / fall risk and unable to drive Homebound supporting statement: Pt. is considered home bound due to recent surgery. Unable to drive, poor balance, poor gait mechanics. Certification: Based on the above findings, I certify that this patient is confined to the home and needs intermittent correction care, physical therapy and/or speech therapy, or continues to need occupational therapy. The patient is under my care, and I have initiated the establishment of the plan of care. The patient will be followed by a physician who will periodically review the plan of care. Time Spent With Patient Time: Total time managing care of this patient today ____ minutes.
[2025-03-14 03:57] VITALS: BP 106/55; PULSE 59; RESP 18; TEMP 36.1; O2SAT 95
[2025-03-14] MEDS: oxyCODONE HCl Immed Release 5 MG TABLET PO ×3 (04:16→11:44)
[2025-03-14 06:25] LABS: MANUAL DIFF FLAG NO
[2025-03-14 06:27] LABS: Hematocrit 33.2 % (37.0-47.0); Hemoglobin 11.1 g/dl (12.0-16.0); Imm Gran Abs Auto 0.03 X10*3/uL (0.00-0.03); Imm Gran Pct Auto 0.4 % (0.0-0.4); Lymphocytes Absolute Auto 0.5 X10*3/uL (1.2-4.9); Mean Corpuscular HGB Conc 33.4 g/dl (31.0-35.0); Mean Corpuscular Hemoglobin 33.0 pg (27.0-33.0); Mean Corpuscular Volume 98.8 fL (80.0-98.0); NRBC Abs Auto 0.000 X10*3/uL (0.0-0.012); NRBC Pct Auto 0.0 /100WBC (0.0-0.2); Platelet Count 147 X10*3/uL (160-400); Red Blood Count 3.36 X10*6/uL (4.20-5.50); White Blood Count 8.2 X10*3/uL (4.8-10.8)
[2025-03-14 06:53] LABS: Anion Gap 11 (12-20); Blood Urea Nitrogen 22 mg/dL (9-16); Calcium 8.6 mg/dL (8.4-10.2); Carbon Dioxide 23 mmol/L (22-29); Chloride 110 mmol/L (96-108); Creatinine Clr Calc Pharmacy 81.9; Estimated Glomerular Filt Rate > 60; Potassium 4.2 mmol/L (3.3-5.1); Sodium 140 mmol/L (135-145)
[2025-03-14 07:13] VITALS: BP 105/56; PULSE 58; RESP 16; TEMP 36.3; O2SAT 98
--- NOTE | 2025-03-14 08:22 | PM.PNORT ---
Subjective Subjective Date of Service: 03/14/25 Interval history: Postop day 1 status post left total knee arthroplasty Patient is doing well resting in bed Pain is well tolerated No overnight events Denies shortness of breath chest pain or palpitations Physical Exam Vital Signs: Vital Signs: Last Vital Signs Temp 97.4 F 03/14/25 07:13 Pulse 58 03/14/25 07:13 Resp 16 03/14/25 07:13 BP 105/56 L 03/14/25 07:13 Pulse Ox 98 03/14/25 07:13 O2 Del Method Room Air 03/14/25 07:13 BMI result Body Mass Index 35.3 Const: General: cooperative, healthy appearing and no acute distress Resp: Effort & Inspection: normal respiratory effort and able to speak in complete sentences Cardio: Rate: regular rate Peripheral pulses: Peripheral pulses 2+ throughout GI: Palpation (GI): Soft to palpation Skin: General skin exam: no rashes or lesions noted Extrem: Other: Left knee bandage is clean dry and intact She has full extension Flexion to 90 She is able to activate straight leg raise Calf is supple and nontender She is able to dorsiflex and plantar flex the foot and ankle Neurovascularly intact Procedures Date of Service Date of Service: 03/14/25 Progress Note: A&P Assessment and plan (1) History of total left knee replacement: Status: Acute Assessment and Plan: Pain control Begin Lovenox x1 and resume home Eliquis dose tomorrow PT for left TKA weightbearing as tolerated range of motion 0-120 quad strength Dispo pending PT clearance home with [facility] Time Spent With Patient Time: Total time managing care of this patient today ____ minutes. Quality Stroke Does the patient have a stroke diagnosis?: No VTE Prior VTE?: No VTE Risk Level:: Surgical - very high VTE Device Contraindication: N/A - Device Ordered VTE Drug Contraindication: N/A - Med Ordered
--- NOTE | 2025-03-14 08:28 | HO.POSTANES ---
Post Anesthesia Evaluation Post Anesthesia Evaluation Date of Service: 03/14/25 Vital Signs: Vital Signs Temp Pulse Resp BP Pulse Ox O2 Del Method 03/14/25 07:13 97.4 F 58 16 105/56 L 98 Room Air 03/14/25 03:57 96.9 F 59 18 106/55 L 95 CPAP Anesthesia: Spinal Mental Status: Awake Pain Control: Satisfactory Nausea/Vomiting: None Hydration: Adequate Anesthesia-Related Issues: No Anes. Related Issues
--- NOTE | 2025-03-14 09:23 | MHC.CM.PN ---
Addendum entered by Maine Blackburn 03/14/25 10:26: DP: PT HAS BEEN MEDICALLY CLEARED FOR DC HOME WITH NEW [facility] FOR P.T. /O.T. . [facility] UPDATED ON DC. Original Note: CM MET WITH PT AT BEDSIDE. PT LIVES ALONE AND IS FUNCTIONALLY INDEPENDENT. PT USES C-PAP FOR SLEEP VIA RELIABLE. + HCP ON FILE AND PCP DR. AMY PIERCE. DP: HOME WITH NEW [facility] FOR P.T. SERVICES. PT HAS OWN RIDE HOME. CM WILL CONTINUE TO FOLLOW FOR ANY CHANGE TO DC PLAN/NEEDS.
[2025-03-14 11:51] VITALS: BP 136/63; PULSE 63; RESP 16; TEMP 36.4; O2SAT 99
== END 2025-03-14 12:23 | disposition home health service (06) ==
LOC: HO.SSS 07:38 → HO.S3 14:07
PROVIDERS: Nurse Practitioner; Physician Assistant; PCP Hospitalist; Visit Provider Orthopaedic Surgery
PROC: (CPT 27447; principal; 2025-03-13 10:50)
DX: M17.12 Unilateral primary osteoarthritis, left knee (principal); I10 Essential (primary) hypertension; I48.0 Paroxysmal atrial fibrillation; I42.8 Other cardiomyopathies; E78.5 Hyperlipidemia, unspecified; G47.33 Obstructive sleep apnea (adult) (pediatric); Z85.820 Personal history of malignant melanoma of skin; Z80.3 Family history of malignant neoplasm of breast; Z79.01 Long term (current) use of anticoagulants; Z79.899 Other long term (current) drug therapy; Z99.89 Dependence on other enabling machines and devices; Z91.040 Latex allergy status; L23.1 Allergic contact dermatitis due to adhesives; Z88.8 Allergy status to other drugs, medicaments and biological substances; Z96.651 Presence of right artificial knee joint; Z98.890 Other specified postprocedural states
CPT/HCPCS: 27447; 36415; 73560; 80048; 85025; 85027; 86850; 86900; 86901; 87640; 87641; 88305; 88311; 97162; C1713; C1776; J0131; J0665; J0690; J1100; J1171; J1650; J2003; J2151; J2250; J2405; J2704; J3010; J7120

== ENCOUNTER → 2025-03-13 07:37 | Outpatient (BNV) | payer MEDICARE, SELFPAY | PROVIDERS: PCP Hospitalist; Visit Provider Orthopaedic Surgery | DX: Z47.1 Aftercare following joint replacement surgery (principal); Z96.652 Presence of left artificial knee joint | CPT/HCPCS: 27447; 99024; G0180 ==

== ENCOUNTER → 2025-03-13 12:23 | Outpatient (BNV) | payer MEDICARE, SELFPAY | PROVIDERS: PCP Hospitalist; Visit Provider Radiology Diagnostic Radiology | DX: Z96.652 Presence of left artificial knee joint (principal) | CPT/HCPCS: 73560 ==

== ENCOUNTER 2025-03-29 10:01 | Outpatient (AMB) | payer MEDICARE, SELFPAY ==
--- NOTE | 2025-03-29 10:09 | A.OFFVIS_ITS ---
Intake Visit Reasons: 2WKPO: L TKA w/NE 03/13/25 Intake Note: Sylvia is a 79 year old female who presents today post operatively after undergoing a left TKA, performed by Dr. Cullen on 03/13/25. Patient reports she is doing really well, first few days were tough however this has improved. States she discontinued use of tramadol as her pain has been tolerable. She continues to use acetaminophen and celebrex for her discomfort. Allergies latex Allergy (Intermediate, Verified 03/29/25 10:13) Rash Medication List - Last Reconciled 03/29/25 by Al Pederson PA-C acetaminophen 650 mg (2 x 325 mg) PO Q6H PRN 30 days apixaban (Eliquis) 5 mg PO BID celecoxib 200 mg PO BID 30 days docusate sodium 100 mg PO BID 7 days [Folding Front Wheeled walker Duration: 99 days] lisinopril 10 mg PO DAILY metoprolol succinate ER 25 mg PO QAM HPI HPI 2WKPO: L TKA w/NE 03/13/25: Details: 79-year-old female returns to the office today status post left total knee arthroplasty on 03/13/[address] Cullen. The patient is ambulating with a cane. She is doing well with her pain only had to use the tramadol occasionally. She begins outpatient physical therapy this coming Wednesday. No concerns today. [facility] Medical History (Updated 03/16/25 @ 00:01 by Ralph Jiménez) Osteoarthritis of left knee Melanoma Heartburn Hyperlipidemia HTN (hypertension) Cardiomyopathy ANIRUDH (obstructive sleep apnea) Atrial fibrillation Osteoarthritis Surgical History Hx of appendectomy Hx of bilateral cataract extraction H/O colonoscopy History of cardiac ablation for atrial fibrillation History of elbow replacement History of bunionectomy of right great toe History of total right knee replacement Social History Household Members: None Housing: House Are you a primary personal care worker to a significant other at home: No Do you presently have visiting nurse or other home services: No Patient Tobacco Use Status: Never used Tobacco Second Hand Smoke Exposure: No service: No Review of Systems Const All systems reviewed & are unremarkable except as noted in HPI and below Physical Exam Const General: cooperative and no acute distress Orientation/consciousness: patient oriented x3 Resp Effort & Inspection: normal respiratory effort and able to speak in complete sentences Cardio Peripheral pulses: Peripheral pulses 2+ throughout Neuro General: patient oriented x3 Extrem Other: Left knee incision is clean dry and intact. No surrounding erythema or effusion. Range of motion is 0 to 100 degrees. She is able to perform a straight leg raise and has good quad activation. Calf supple and nontender neurovascularly intact. Assessment & Plan Assessment & Plan (1) History of total left knee replacement: Code(s): Z96.652 - Presence of left artificial knee joint Category: Surgical Plan: Jorge removed today Steri-Strips applied. The patient will continue working with physical therapy to improve range of motion strength and gait training. I reminded the patient no dental work until 3 months post op and he will require antibiotics for dental prophylaxis. Patient was reminded no driving until 4 to 6 weeks postop. They will return in 4 weeks for routine follow up, sooner if needed. Coding Level of Care Code Global (35886) Diagnoses History of total left knee replacement Z96.652
--- OUTSIDE RECORDS SUMMARY | 2025-03-29 12:00 | XMS_ITS | Patient Health Record ---
Author Organization [facility] Address [address] [facility] [place] [address] Care Team Providers Care Contracts Law Professor Name Role Phone TIFFANY PIERCE Primary Care [...] joints of right foot (M25.571) Referral Organization [facility] Referring Provider First Name ALLEN Referring Provider Last Name [facility] Referring Provider Speciality Internal edicine Referred Provider Specialty Orthopedic S urgery General Notes Pending completed no te. Once done fax to [phone].Roxann Latraya 01/03/2025 10:40:54 AM >, Please call the patient to schedule the appointment, Encounter created and SMS sent to the pt.Romario Charmain 01/04/2025 07:29:00 AM > Referral Priority Routine Reason Evaluation and manag ement Diagnosis 1 Pain in right ankle and joints of right foot (M25.571) Referral Organization [facility] Referring Provider First Name TIFFANY Referring Provider Last Name [facility] Referring Provider Speciality Internal edicine Referred [...] Notes Problem Obesity due to excess calories (854281374) Other obesity due to excess calories (E66.09) Active confirmed Problem Essential hypertension (00866284) Essential (primary) hypertension (I10) Active confirmed Problem Cardiomyopathy (79479931) Cardiomyopathy, unspecified (I42.9) Active confirmed Problem Paroxysmal atrial fibrillation (554927515) Paroxysmal atrial fibrillation (I48.0) Active confirmed Vital Signs Heart Rate 84 /min 02/15/2025 Temperature 97.1 degrees Fahrenheit 02/15/2025 Oximetry 98 % 02/15/2025 Blood pressure diastolic 80 mm Hg 02/15/2025 Height 5'5'' in 02/15/2025 Blood pressure systolic 126 mm Hg 02/15/2025 Weight 193.8 lbs 02/15/2025 BMI 32.25 kg/m2 02/15/2025 Encounters Encounter Location Date Provider Diagnosis [address] [place] [address] 06/01/2024 ALLEN GUL Essential (primary) hypertension I10 ; Unspecified atrial fibrillation I48.91 ; Other obesity due to excess calories E66.09 and Dietary counseling and surveillance Z71.[address] [place] [address] 11/14/2024 ALLEN GUL Essential (primary) hypertension I10 ; Encounter for general adult medical examination without abnormal findings Z00.00 ; Unspecified atrial fibrillation I48.91 ; Other obesity due to excess calories E66.09 ; Paroxysmal atrial fibrillation I48.0 and Cardiomyopathy, unspecified I42.[address] [place] [address] 01/03/2025 ALLEN GUL Pain in right ankle and joints of right foot M25.[address] [place] [address] 02/15/2025 ALLEN GUL Encounter for other preprocedural examination Z01.[address] [place] [address] 11/27/2024 ALLEN L [address] [place] [address] 11/30/[address] [place] [address] 01/04/2025 [facility] [address] [place] [address] 01/16/2025 [facility] [address] [place] [address] 02/15/2025 [facility] Assessments Encounter Date Diagnosis (ICD Code) Assessment Notes Treatment Notes Treatment Clinical Notes Section Notes 06/01/2024 Essential (primary) hypertension (ICD-10 - I10) 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 Cullen. She takes amoxicillin prophylactically before dental work She is up-to-date on age-specific screening. Her sister Jessica Wallis is her healthcare proxy and her phone number is [phone] Screening blood work before next appointment. 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 Cullen. She takes amoxicillin prophylactically before dental work She is up-to-date on age-specific screening. Her sister Jessica Wallis is her healthcare proxy and her phone number is [phone] Screening blood work before next appointment. 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, paroxysmal atrial fibrillation and status post ablation time 2 and currently on Eliquis, nonischemic cardiomyopathy most likely secondary to tachycardia and EF is within reasonable limits and she goes to and she sees [facility] cardiology, melanoma right lower leg [...] and she goes to and she sees [facility] cardiology, melanoma right lower leg [...] and she goes to and she sees [facility] cardiology, melanoma right lower leg [...] and she goes to and she sees [facility] cardiology, melanoma right lower leg and she had a Mohs procedure and she follows up with dermatology on regular basis is here for preop physical for left total knee arthroplasty by at [facility] Plan is as follows. Cardiac assessment. Patient can easily do 4 METS. Blood pressure and exam is within normal limits.Her last echocardiogram with cardiology showed preserved EF. She was seen by features reporter recently and was cleared for surgery. Pulmonary assessment. Lung exam is normal. She use a CPAP machine and she may need CPAP or BiPAP after extubation. She will continue metoprolol and she will hold Eliquis 48 hours before procedure. She had a CBC, comprehensive panel at [facility] which is not available and EKG recently [...] and she goes to and she sees [facility] cardiology, melanoma right lower leg [...] with hypertension, atrial fibrillation and she sees [facility] cardiology, melanoma right leg and [...] Status post right total knee replacement at [facility] by Dr. Cullen. She takes amoxicillin prophylactically before dental work She is up-to-date on age-specific screening. Her sister Jessica Wallis is her healthcare proxy and her phone number is [phone] Screening blood work before next appointment. 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 Cullen. She takes amoxicillin prophylactically before dental work She is up-to-date on age-specific screening. Her sister Jessica Wallis is her healthcare proxy and her phone number is [phone] Screening blood work before next appointment. 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, paroxysmal atrial fibrillation and status post ablation time 2 and currently on Eliquis, nonischemic cardiomyopathy most likely secondary to tachycardia and EF is within reasonable limits and she goes to and she sees [facility] cardiology, melanoma right lower leg [...] and she goes to and she sees [facility] cardiology, melanoma right lower leg [...] and she goes to and she sees [facility] cardiology, melanoma right lower leg [...] Future Test Test Name Order Date Albumin/Creatinine Ratio,[id number] Lipid Panel-[id number] 06/01/2024 Comp. Metabolic Panel ([id number] 2024 Next Appt Details Provider Name:TIFFANY Cuco PIERCE , 05/18/2025 08:30:00 AM, [address] [place] [address], [phone], Insurance Providers Payer Name Payer Address Payer Phone Subscriber Number Group Number Insured Name Patient Relationship to Insured Coverage Start Date Coverage End Date Medicare [address] [facility] [place] [phone] [id number] Sylvia Wallis Self - patient is the insured 3 Medical (General) History Medical History History ICD Code hypertension atrial fibrillation and she sees [facility] cardiology and status post ablation time 2 Melanoma right leg and statu s post Mohs procedure and she goes to [place] dermatology Remote injury to the jaw and takes Flexe ril as needed Surgical History Surgery Date(Month/Year) right total knee replacement at [facility] Wrist surgery Dr Laughlin after fall hit by a dog appendectomy
--- OUTSIDE RECORDS SUMMARY | 2025-03-29 12:00 | XMS_ITS | Clinical Summary ---
Author Organization [address] [place] [address] [place] [phone] Phone Care Team Providers Care Stock Cutter Name Role Phone Mick Flores MD Primary Care Provider [phone] Allergies Active Allergy Reactions Criticality Noted Date [...] knee total replacement with Dr. Cullen at [facility]. Despite her knee pain she still [...] Assessment & Plan: -compliant with CPAP Cardiomyopathy ([facility] V24, CMS/[facility] V28) 2020 Overview (11/07/2024): - See history [...] Type Department Care Team Description 03/07/2025 Telephone [facility] Cardiology [facility] [address] [place] [address] Yamilet Núñez MD 02/12/2025 9:40 AM EDT Consult [facility] Cardiology [facility] [address] [place] [phone] Jerald Augustin NP Cardiomyopathy, unspecified type (CMS/HCC V24, CMS/HCC V28) (Primary Dx); Essential hypertension; Hyperlipidemia, unspecified hyperlipidemia type; Paroxysmal atrial fibrillation (CMS/HCC V24, CMS/HCC V28); Pre-op evaluation 02/12/2025 Telephone [facility] Cardiology [facility] [address] [place] [address] Provider, Not In System from Last 3 Months Family History Medical [...] GEMUSE QTc 414 ms GEMUSE P Wave [place] 77 degrees GEMUSE R [place] -53 degrees GEMUSE T [place] 52 degrees GEMUSE ECG Interpretation Sinus rhythm with Premature atrial complexes Left anterior fascicular block When compared with ECG of 07-NOV-2024 08:18, Premature atrial complexes are now Present Confirmed by YAMILET NÚÑEZ ([id number]) on 03/02/2025 5:21:08 PM GEMUSE 02/12/2025 9:47 AM EDT 03/02/2025 5:21 PM EDT us Jerald Augustin NP ECG ORDERABLES Edited Result - Final Performing Organization Address City/[facility]/ZIP Co de Phone Number COSME * (ABNORMAL) Lipid panel with reflex to direct LDL (08/22/2024 10:04 AM EDT) Cholesterol 205(H) 0 - 200 mg/dL LAB CHEMISTRY METHOD 08/22/2024 12:11 PM EDT [facility] Triglycerides 92 0 - 150 mg/dL LAB CHEMISTRY METHOD 08/22/2024 12:11 PM EDT [facility] HDL 76 >=40 mg/dL LAB CHEMISTRY METHOD 08/22/2024 12:11 PM EDT [facility] LDL Calculated 111(H) 0 - 100 mg/dL LAB CHEMISTRY METHOD 08/22/2024 12:11 PM EDT [facility] VLDL Cholesterol [place] 18.4 mg/dL LAB CHEMISTRY METHOD 08/22/2024 12:11 PM EDT [facility] Non HDL Chol. (LDL+VLDL) 129 <145 mg/dL LAB CHEMISTRY METHOD 08/22/2024 12:11 PM EDT [facility] Chol/HDL Ratio 2.7 0.0 - 4.4 LAB CHEMISTRY METHOD 08/22/2024 12:11 PM [facility] Blood Venous blood specimen / Unknown Venipuncture / Unknown 08/22/2024 10:04 AM EDT 08/22/2024 11:07 AM EDT us Mick Flores MD LAB BLOOD ORDERABLES Final Res ult [facility] [address] [place] [address], [place] [phone] * Comprehensive metabolic panel (08/22/2024 10:04 AM EDT) Sodium 138 133 - 145 mmol/L LAB CHEMISTRY METHOD 08/22/2024 12:11 PM [facility] Potassium 3.7 3.5 - 5.5 mmol/L LAB CHEMISTRY METHOD 08/22/2024 12:11 PM [facility] Chloride 104 96 - 110 mmol/L LAB CHEMISTRY METHOD 08/22/2024 12:11 PM [facility] CO2 29 21 - 32 mmol/L LAB CHEMISTRY METHOD 08/22/2024 12:11 PM [facility] Anion Gap 5 3 - 11 LAB CHEMISTRY METHOD 08/22/2024 12:11 PM [facility] Glucose 93 70 - 100 mg/dL LAB CHEMISTRY METHOD 08/22/2024 12:11 PM [facility] BUN 18 5 - 25 mg/dL LAB CHEMISTRY METHOD 08/22/2024 12:11 PM [facility] Creatinine 0.82 0.50 - 1.10 mg/dL LAB CHEMISTRY METHOD 08/22/2024 12:11 PM [facility] eGFR 74 >=60 mL/min/1. 73m2 LAB CHEMISTRY METHOD 08/22/2024 12:11 PM [facility] Comment:Calculation based on the Chronic Kidney Disease Epidemiology Collaboration (CKD-EPI) equation refit without adjustment for race. BUN/Creatinine Ratio 22.0 LAB CHEMISTRY METHOD 08/22/2024 12:11 PM [facility] Calcium 9.8 8.5 - 10.5 mg/dL LAB CHEMISTRY METHOD 08/22/2024 12:11 PM [facility] AST (SGOT) 22 10 - 42 unit/L LAB CHEMISTRY METHOD 08/22/2024 12:11 PM [facility] ALT (SGPT) 47 10 - 60 unit/L LAB CHEMISTRY METHOD 08/22/2024 12:11 PM [facility] Alkaline Phosphatase 103 42 - 121 unit/L LAB CHEMISTRY METHOD 08/22/2024 12:11 PM EDT [facility] Total Protein 7.6 6.0 - 8.0 g/dL LAB CHEMISTRY METHOD 08/22/2024 12:11 PM EDT [facility] Albumin 4.1 3.2 - 5.0 g/dL LAB CHEMISTRY METHOD 08/22/2024 12:11 PM EDT [facility] Total Bilirubin 1.2 0.0 - 1.4 mg/dL LAB CHEMISTRY METHOD 08/22/2024 12:11 PM EDT [facility] Blood Venous blood specimen / Unknown Venipuncture / Unknown 08/22/2024 10:04 AM EDT 08/22/2024 11:07 AM EDT Mick Flores MD LAB BLOOD ORDERABLES Final Res ult [facility] [address] [place] [address], * External Colonoscopy Report (03/01/2009 2:13 PM EDT) Anatomical Region Laterality Modality Endoscopy Historical Provider GI~PROCEDURE ORDERABLES F inal Result from Last 3 Months or Most Recently Relevant to Health Maintenance [place] [address] MEDICARE Care Teams Stock Cutter Relationship Specialty Start Date End Date Mick Flores MD [address] [place] [address] PCP - General Internal Medicine 07/11/24
== END 2025-03-29 11:03 | disposition home or self-care (01) ==
PROVIDERS: PCP Hospitalist; Visit Provider Physician Assistant
DX: Z96.652 Presence of left artificial knee joint (principal)
CPT/HCPCS: 99024

== ENCOUNTER → 2025-03-29 10:01 | Outpatient (BNVA) | payer MEDICARE, SELFPAY | PROVIDERS: PCP Hospitalist; Visit Provider Physician Assistant | DX: M25.562 Pain in left knee (principal); Z96.652 Presence of left artificial knee joint; Z98.890 Other specified postprocedural states; Z48.02 Encounter for removal of sutures; Z79.01 Long term (current) use of anticoagulants | CPT/HCPCS: 99212 ==

== ENCOUNTER 2025-04-26 14:08 | Outpatient (AMB) | payer MEDICARE, SELFPAY ==
--- NOTE | 2025-04-26 14:14 | MHC.OFFVIS ---
Intake Visit Reasons: 6WKPO: L TKA w/NE 03/13/25 Intake Note: Sylvia is a 79 year old female who presents today for a post operative appointment about 6 week s/p Left TKA 03/13/25. Patient reports that she is doing well, she has no current concens. She has some mild swelling after being on her feet all day. She also complains of discomfort and mild instability of the right ankle. She has been seen for the ankle, and was told she had a sprain. completed PT but is sitll not feeling 100% Allergies latex Allergy (Intermediate, Verified 04/26/25 14:19) Rash HPI HPI 6WKPO: L TKA w/NE 03/13/25: Details: Sylvia is a 79 year old female who presents today for a post operative appointment about 6 week s/p Left TKA 03/13/25. Patient reports that she is doing well, she has no current concens. She has some mild swelling after being on her feet all day. She also complains of discomfort and mild instability of the right ankle. She has been seen for the ankle, and was told she had a sprain. completed PT but is sitll not feeling 100% HPI Comments Details: Interval History The patient is a 79-year-old female presenting for follow-up for left total knee arthroplasty post-operative care. She reports doing very well overall, although she experiences some swelling in the knee, which she notes is getting softer over time. She continues to take Tylenol for pain management and has been on blood thinners for a long time, which she continues as prescribed. The patient is pleased with her progress in therapy and has a smooth arc of motion in the knee. The patient also reports right ankle pain [place] her knee surgery. She describes the pain as intermittent, occurring sometimes when she gets up in the morning, but not consistently. The patient has been attending therapy, which she believes has strengthened her ankle, although it remains weaker than her other leg. She has been advised by her PA that the ankle is not broken, and she feels it is improving as it is not constant. Results [facility] Medical History (Updated 03/16/25 @ 00:01 by Background Daemon) Osteoarthritis of left knee Melanoma Heartburn Hyperlipidemia HTN (hypertension) Cardiomyopathy ANIRUDH (obstructive sleep apnea) Atrial fibrillation Osteoarthritis Surgical History Hx of appendectomy Hx of bilateral cataract extraction H/O colonoscopy History of cardiac ablation for atrial fibrillation History of elbow replacement History of bunionectomy of right great toe History of total right knee replacement Social History Household Members: None Housing: House Are you a primary pulmonary care nurse to a significant other at home: No Do you presently have visiting nurse or other home services: No Patient Tobacco Use Status: Never used Tobacco Second Hand Smoke Exposure: No service: No Physical Exam Exam Exam: Physical Exam 0-125 inc c/d/i mild swelling Assessment & Plan Assessment & Plan (1) History of total left knee replacement: Code(s): Z96.652 - Presence of left artificial knee joint Category: Surgical Plan Plan 1. Left Total Knee Arthroplasty Post-Operative Follow-Up Continue with physical therapy to maintain and improve range of motion and strength in the left knee. Continue taking Tylenol for pain management as needed. Monitor for any signs of complications such as increased swelling or pain. 2. Right Ankle Pain Post-Fall Continue with exercises and therapy to strengthen the right ankle. Monitor symptoms and avoid activities that exacerbate the pain. Consider further evaluation if symptoms persist or worsen. Discussion Notes The patient expressed satisfaction with her recovery from the left total knee arthroplasty, noting improvements in swelling and mobility. She discussed her concerns about the right ankle pain following a fall, and it was confirmed that the ankle is not broken. The patient was advised to continue therapy for both the knee and ankle, and to monitor for any changes in symptoms. Coding Level of Care Code Global (48819) Diagnoses History of total left knee replacement Z96.652
--- OUTSIDE RECORDS SUMMARY | 2025-04-26 21:40 | XMS_ITS | Clinical Summary ---
Author Organization [address] [place] [address] [place] [phone] Phone Care Team Providers Care Safe And Vault Installer Name Role Phone Mick Flores MD Primary Care Provider [phone] Allergies Active Allergy Reactions Criticality Noted Date [...] knee total replacement with Dr. Cullen at [facility]. Despite her knee pain she still remains [...] Assessment & Plan: -compliant with CPAP Cardiomyopathy 10/10/2020 Overview (11/07/2024): - See history under paroxysmal [...] is euvolemic on exam. Paroxysmal atrial fibrillation 10/10/2020 Overview (11/07/2024): - Started having persistent [...] Type Department Care Team Description 03/07/2025 Telephone [facility] Cardiology [facility] [address] [facility] [address] [place] [address] Yamilet Núñez MD 02/12/2025 9:40 AM EDT Consult [facility] Cardiology [facility] [address] [place] [address] Jerald Augustin NP Cardiomyopathy, unspecified type (CMS/HCC V24, CMS/HCC V28) (Primary Dx); Essential hypertension; Hyperlipidemia, unspecified hyperlipidemia type; Paroxysmal atrial fibrillation (CMS/HCC V24, CMS/HCC V28); Pre-op evaluation 02/12/2025 Telephone [facility] Cardiology [facility] [address] [facility] [address] [place] [phone] Provider, Not In System from Last 3 [...] on file Sexual Orientation Not on file Last Filed Vital Signs Vital Sign Reading [...] GEMUSE QTc 414 ms GEMUSE P Wave [place] 77 degrees GEMUSE R [place] -53 degrees GEMUSE T [place] 52 degrees GEMUSE ECG Interpretation Sinus rhythm with Premature atrial complexes Left anterior fascicular block When compared with ECG of 07-NOV-2024 08:18, Premature atrial complexes are now Present Confirmed by YAMILET NÚÑEZ ([id number]) on 03/02/2025 5:21:08 PM GEMUSE 02/12/2025 9:4 7 AM EDT 03/02/2025 5:21 PM EDT us Jerald Augustin NP ECG ORDERABLES Edited Result - Final COMSE * (ABNORMAL) Lipid panel with reflex to [...] 12:11 PM EDT [facility] Non HDL Chol. (LDL+VLDL) 129 <145 mg/dL LAB CHEMISTRY METHOD 08/22/2024 12:11 PM EDT [facility] Chol/HDL Ratio 2.7 0.0 - 4.4 LAB CHEMISTRY METHOD 08/22/2024 12:11 PM EDT [facility] Blood Venous blood specimen / Unknown Venipuncture / Unknown 08/22/2024 10:04 AM EDT 08/22/2024 11:07 AM EDT us Mick Flores MD LAB BLOOD ORDERABLES Final Res ult [facility] [address] [place] [address], [place] [phone] * Comprehensive metabolic panel (08/22/2024 10:04 AM EDT) Sodium 138 133 - 145 mmol/L LAB CHEMISTRY METHOD [facility] Potassium 3.7 3.5 - 5.5 mmol/L LAB CHEMISTRY METHOD 08/22/2024 12:11 PM [facility] Chloride 104 96 - 110 mmol/L LAB CHEMISTRY METHOD 08/22/2024 12:11 PM [facility] CO2 29 21 - 32 mmol/L LAB CHEMISTRY METHOD 08/22/2024 12:11 PM [facility] Anion Gap 5 3 - 11 LAB CHEMISTRY METHOD 08/22/2024 12:11 PM [facility] Glucose 93 70 - 100 mg/dL LAB CHEMISTRY METHOD 08/22/2024 12:11 PM [facility] BUN 18 5 - 25 mg/dL LAB CHEMISTRY METHOD 08/22/2024 12:11 PM [facility] Creatinine 0.82 0.50 - 1.10 mg/dL LAB CHEMISTRY METHOD 08/22/2024 12:11 PM [facility] eGFR 74 >=60 mL/min/1. 73m2 LAB CHEMISTRY METHOD 08/22/2024 12:11 PM [facility] Comment:Calculation based on the Chronic Kidney Disease Epidemiology Collaboration (CKD-EPI) equation refit without adjustment for race. BUN/Creatinine Ratio 22.0 LAB CHEMISTRY METHOD 08/22/2024 12:11 PM [facility] Calcium 9.8 8.5 - 10.5 mg/dL LAB CHEMISTRY METHOD 08/22/2024 12:11 PM [facility] AST (SGOT) 22 10 - 42 unit/L LAB CHEMISTRY METHOD 08/22/2024 12:11 PM [facility] ALT (SGPT) 47 10 - 60 unit/L LAB CHEMISTRY METHOD 08/22/2024 12:11 PM [facility] Alkaline Phosphatase 103 42 - 121 unit/L LAB CHEMISTRY METHOD 08/22/2024 12:11 PM [facility] Total Protein 7.6 6.0 - 8.0 g/dL LAB CHEMISTRY METHOD 08/22/2024 12:11 PM EDT [facility] Albumin 4.1 3.2 - 5.0 g/dL LAB CHEMISTRY METHOD 08/22/2024 12:11 PM EDT [facility] Total Bilirubin 1.2 0.0 - 1.4 mg/dL LAB CHEMISTRY METHOD 08/22/2024 12:11 PM EDT [facility] Blood Venous blood specimen / Unknown Venipuncture / Unknown 08/22/2024 10:04 AM EDT 08/22/2024 11:07 AM EDT Mick Flores MD LAB BLOOD ORDERABLES Final Res ult [facility] [address] [place] [address], * External Colonoscopy Report (03/01/2009 2:13 PM EDT) Anatomical Region Laterality Modality Endoscopy Historical Provider GI~PROCEDURE ORDERABLES F inal Result from Last 3 Months or Most Recently Relevant to Health Maintenance [place] [id number] MEDICARE Care Teams Safe And Vault Installer Relationship Specialty Start Date End Date Mick Flores MD [address] [place] [phone] PCP - General Internal Medicine 07/11/24
--- OUTSIDE RECORDS SUMMARY | 2025-04-26 21:40 | XMS_ITS | Patient Health Record ---
Author Organization [facility] Address [address] [facility] [address] [place] [address] Care Team Providers Care Oil Pumper Name Role Phone TIFFANY PIERCE Primary Care Provider [phone] Allergies Allergen (clinical drug ingredient) Drug/Non Drug [...] joints of right foot (M25.571) Referral Organization [facility] Referring Provider First Name [facility] Referring Provider Last Name [facility] Referring Provider Speciality Internal edicine Referred Provider Specialty Orthopedic S urgery General Notes Pending completed no te. Once done fax to [phone].Roxann Latraya 01/03/2025 10:40:54 AM >, Please call the patient to schedule the appointment, Encounter created and SMS sent to the pt.Romario Charmain 01/04/2025 07:29:00 AM > Referral Priority Routine Reason Evaluation and manag ement Diagnosis 1 Pain in right ankle and joints of right foot (M25.571) Referral Organization [facility] Referring Provider First Name ALLEN Referring Provider Last Name [facility] Referring Provider Speciality Internal edicine Referred Provider [...] Notes Problem Obesity due to excess calories (618171267) Other obesity due to excess calories (E66.09) Active confirmed Problem Essential hypertension (40990869) Essential (primary) hypertension (I10) Active confirmed Problem Cardiomyopathy (07539965) Cardiomyopathy, unspecified (I42.9) Active confirmed Problem Paroxysmal atrial fibrillation (588830754) Paroxysmal atrial fibrillation (I48.0) Active confirmed Vital Signs Heart Rate 84 /min 02/15/2025 Temperature 97.1 degrees Fahrenheit 02/15/2025 Oximetry 98 % 02/15/2025 Blood pressure diastolic 80 mm Hg 02/15/2025 Height 5'5'' in 02/15/2025 Blood pressure systolic 126 mm Hg 02/15/2025 Weight 193.8 lbs 02/15/2025 BMI 32.25 kg/m2 02/15/2025 Encounters Encounter Location Date Provider Diagnosis [address] [place] [address] 06/01/2024 ALLEN GUL Essential (primary) hypertension I10 ; Unspecified atrial fibrillation I48.91 ; Other obesity due to excess calories E66.09 and Dietary counseling and surveillance Z71.[address] [place] [address] 11/14/2024 ALLEN GUL Essential (primary) hypertension I10 ; Encounter for general adult medical examination without abnormal findings Z00.00 ; Unspecified atrial fibrillation I48.91 ; Other obesity due to excess calories E66.09 ; Paroxysmal atrial fibrillation I48.0 and Cardiomyopathy, unspecified I42.[address] [place] [address] 01/03/2025 ALLEN GUL Pain in right ankle and joints of right foot M25.[address] [place] [address] 02/15/2025 ALLEN GUL Encounter for other preprocedural examination Z01.[address] [place] [address] 11/27/2024 ALLEN L [address] [place] [address] 11/30/[address] [place] [address] 01/04/2025 [facility] [address] [facility] [address] [place] [address] 01/16/2025 [facility] [address] [facility] [address] [place] [address] 02/15/2025 [facility] Assessments Encounter Date Diagnosis (ICD Code) Assessment Notes Treatment Notes Treatment Clinical Notes Section Notes 06/01/2024 Essential (primary) hypertension (ICD-10 - I10) 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 Cullen. She takes amoxicillin prophylactically before dental work She is up-to-date on age-specific screening. Her sister Jessica Wallis is her healthcare proxy and her phone number is [phone] Screening blood work before next appointment. 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 Cullen. She takes amoxicillin prophylactically before dental work She is up-to-date on age-specific screening. Her sister Jessica Wallis is her healthcare proxy and her phone number is [phone] Screening blood work before next appointment. 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, paroxysmal atrial fibrillation and status post ablation time 2 and currently on Eliquis, nonischemic cardiomyopathy most likely secondary to tachycardia and EF is within reasonable limits and she goes to and she sees [facility] cardiology, melanoma right lower leg and [...] and she goes to and she sees [facility] cardiology, melanoma right lower leg and [...] and she goes to and she sees [facility] cardiology, melanoma right lower leg and [...] and she goes to and she sees [facility] cardiology, melanoma right lower leg and she had a Mohs procedure and she follows up with dermatology on regular basis is here for preop physical for left total knee arthroplasty by at [facility] Plan is as follows. Cardiac assessment. Patient can easily do 4 METS. Blood pressure and exam is within normal limits.Her last echocardiogram with cardiology showed preserved EF. She was seen by exchange mechanic recently and was cleared for surgery. Pulmonary assessment. Lung exam is normal. She use a CPAP machine and she may need CPAP or BiPAP after extubation. She will continue metoprolol and she will hold Eliquis 48 hours before procedure. She had a CBC, comprehensive panel at [facility] which is not available and EKG [...] and she goes to and she sees [facility] cardiology, melanoma right lower leg and [...] with hypertension, atrial fibrillation and she sees [facility] cardiology, melanoma right leg and follow-up [...] Status post right total knee replacement at [facility] by Dr. Cullen. She takes amoxicillin prophylactically before dental work She is up-to-date on age-specific screening. Her sister Jessica Wallis is her healthcare proxy and her phone number is [phone] Screening blood work before next appointment. 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 Cullen. She takes amoxicillin prophylactically before dental work She is up-to-date on age-specific screening. Her sister Jessica Wallis is her healthcare proxy and her phone number is [phone] Screening blood work before next appointment. 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 Metabolic Panel [id number] 2024 Next Appt Details Provider Name:TIFFANY Cuco PIERCE , 05/18/2025 08:30:00 AM, [address] [place] [address], [phone], Insurance Providers Payer Name Payer Address Payer Phone Subscriber Number Group Number Insured Name Patient Relationship to Insured Coverage Start Date Coverage End Date Medicare [address] [facility] [place] [phone] [id number] Sylvia Wallis Self - patient is the insured 3 Medical (General) History Medical History History ICD Code hypertension atrial fibrillation and she sees [facility] cardiology and status post ablation time 2 Melanoma right leg and statu s post Mohs procedure and she goes to [facility] Remote injury to the jaw and takes Flexe ril as needed Surgical History Surgery Date(Month/Year) right total knee replacement at [facility] Wrist surgery Dr Laughlin after fall hit by a dog appendectomy
== END 2025-04-26 14:53 | disposition home or self-care (01) ==
LOC: HO.HOS 14:09
PROVIDERS: PCP Hospitalist; Visit Provider Orthopaedic Surgery
DX: Z96.652 Presence of left artificial knee joint (principal)
CPT/HCPCS: 99024

== ENCOUNTER → 2025-04-26 14:08 | Outpatient (BNVA) | payer MEDICARE, SELFPAY | PROVIDERS: PCP Hospitalist; Visit Provider Orthopaedic Surgery | DX: M25.571 Pain in right ankle and joints of right foot (principal); Z98.890 Other specified postprocedural states; Z96.652 Presence of left artificial knee joint | CPT/HCPCS: 99212 ==